=== PATIENT | female | born 1970 | race Caucasian/White ===

== ENCOUNTER 2023-06-03 21:53 | Outpatient (REF) | payer BC, SELFPAY | END 2023-06-03 21:54 | disposition home or self-care (01) | LOC: LAB 21:53 | PROVIDERS: PCP Family Medicine; Visit Provider Family Medicine | DX: N39.0 Urinary tract infection, site not specified (principal) | CPT/HCPCS: 87086 ==

== ENCOUNTER 2023-06-27 15:03 | Outpatient (OUT) | payer BC, SELFPAY ==
--- NOTE | 2023-06-27 15:12 | US_ITS ---
Patient: ROSLYN FLORES Exam Date: 06/27/2023 : 1970 Gender:F Ordering : DR Seymour Batres . Admission #: [id number] Family : Order #: [id number] CLICK HERE TO VIEW EXAM RADIOLOGY REPORT PROCEDURE: US BREAST BI LIMITED COMPARISON: US BREAST CARMEN LIMITED, 12/07/2022. INDICATIONS: Fibrocystic breast changes, bilateral N60.11, N60.12 TECHNIQUE: Breast ultrasound was performed, with evaluation focusing only on specific areas of concern. FINDINGS: DIAGNOSTIC CATEGORY 2--BENIGN FINDING: RIGHT BREAST: Oval hypoechoic 4 x 4 x 2 mm structure at the 5 o'clock position suspected to represent a lymph node. No appreciable change. LEFT BREAST: Rounded hypoechoic 4 x 4 x 3 mm structure at the 1 o'clock position; cyst versus lymph node suspected. No appreciable change compared to prior study. Annual screening is recommended. Patient states both lesions are palpable; if there is any increase in size ultrasound evaluation should be performed at that time. RECOMMENDATIONS: ROUTINE MAMMOGRAM AND CLINICAL EVALUATION IN 12 MONTHS. PLEASE NOTE: A NORMAL ULTRASOUND EXAMINATION DOES NOT EXCLUDE THE POSSIBILITY OF BREAST CANCER. A CLINICALLY SUSPICIOUS PALPABLE LUMP SHOULD BE BIOPSIED. Dictated by: Eduardo Trevino M.D. on 06/27/2023 at 15:28 Approved by: Eduardo Trevino M.D. on 06/27/2023 at 15:35
== END 2023-06-27 15:04 | disposition home or self-care (01) ==
PROVIDERS: PCP Family Medicine; Visit Provider Family Medicine
DX: N60.11 Diffuse cystic mastopathy of right breast (principal); N60.12 Diffuse cystic mastopathy of left breast
CPT/HCPCS: 76642

== ENCOUNTER 2023-08-07 12:14 | Outpatient (OUT) | payer BC, SELFPAY ==
[2023-08-07 12:34] LABS: Basophils Percent Auto 0.8 % (0.2-2.0); Eosinophils Percent Auto 0.6 % (0.9-7.0); Hematocrit 43.9 % (36.0-48.0); Hemoglobin 14.2 g/dL (12.0-16.0); Lymphocytes Absolute Auto 1.9 10^3/uL (1.2-3.8); Lymphocytes Percent Auto 37.4 % (20.5-60.0); Mean Corpuscular HGB Conc 32.3 g/dL (29.9-35.2); Mean Corpuscular Hemoglobin 29.1 pg (26.7-34.0); Mean Platelet Volume 9.6 fL (9.5-13.5); Monocytes Absolute Auto 0.4 10^3/uL (0.3-0.8); Monocytes Percent Auto 7.3 % (1.7-12.0); Neutrophils Absolute Auto 2.8 10^3/uL (1.4-6.5); Neutrophils Percent Auto 53.9 % (43.0-75.0); Platelet Count 232 10^3/uL (150-450); Red Blood Count 4.88 10^6/uL (4.20-5.40); Red Cell Distribution Width 12.9 % (11.0-15.0); White Blood Count 5.2 10^3/uL (4.0-11.0)
[2023-08-07 12:36] LABS: Bilirubin Urine NEGATIVE (NEGATIVE); Blood Urine NEGATIVE (NEGATIVE); Clarity Urine CLEAR (CLEAR); Color Urine YELLOW (YELLOW); Glucose Urine UA NEGATIVE (NEGATIVE); Ketones Urine NEGATIVE (NEGATIVE); Leukocyte Esterase Urine NEGATIVE (NEGATIVE); Nitrite Urine NEGATIVE (NEGATIVE); Protein Urine NEGATIVE (NEG/TRACE); Urobilinogen Urine 0.2 EU/dL (0.2-1.0)
[2023-08-07 12:43] LABS: Amorphous Sediment Urine MODERATE; Bacteria Urine SMALL #/HPF (NONE SEEN); Cast Seen? SEEN #/LPF (NONE SEEN); Crystals Seen? Seen #/HPF (None Seen); Hyaline Casts Urine RARE
[2023-08-07 12:44] LABS: Squamous Epithelial Cell Urine MODERATE #/LPF (NONE/RARE)
[2023-08-07 12:45] LABS: Calcium Oxalate Crystals Urine FEW; Mucus Urine NONE SEEN (NONE SEEN); Urine Culture Indicated NO
[2023-08-07 12:53] LABS: Alanine Aminotransferase 16 U/L (14-59); Albumin Globulin Ratio 1.1; Albumin Level 3.5 g/dL (3.4-5.0); Alkaline Phosphatase 65 U/L (46-116); Anion Gap 11.5; Aspartate Amino Transferase 13 U/L (15-37); Bilirubin Direct 0.1 mg/dL (0.0-0.2); Bilirubin Total 0.2 mg/dL (0.2-1.0); Calcium 8.4 mg/dL (8.5-10.1); Carbon Dioxide 26.9 mmol/L (21.0-32.0); Chloride 106 mmol/L (98-107); Estimated GFR (African America >60 (>=60); Estimated GFR (Non-African Ame 58 (>=60); Globulin 3.2 g/dL; Glucose 91 mg/dL (74-106); Magnesium 1.9 mg/dL (1.8-2.4); Potassium 3.4 mmol/L (3.5-5.1); Sodium 141 mmol/L (136-145); Total Protein 6.7 g/dL (6.4-8.2)
== END 2023-08-07 12:15 | disposition home or self-care (01) ==
LOC: LAB 12:14
PROVIDERS: PCP Family Medicine; Visit Provider Family Medicine
DX: N39.0 Urinary tract infection, site not specified (principal); Z79.899 Other long term (current) drug therapy
CPT/HCPCS: 36415; 80048; 80076; 81001; 83735; 85025; 87086

== ENCOUNTER 2023-09-09 16:11 | Outpatient (OUT) | payer OTHER, SELFPAY | END 2023-09-09 16:12 | disposition home or self-care (01) | LOC: CARD 16:11 | PROVIDERS: PCP Family Medicine; Visit Provider Family Medicine | DX: Z53.9 Procedure and treatment not carried out, unspecified reason (principal) ==

== ENCOUNTER 2023-09-12 15:59 | Outpatient (OUT) | payer BC, SELFPAY ==
--- NOTE | 2023-09-12 16:14 | CA_ITS ---
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: : 1970 Requested By: JOHN RIVAS Order Number: [id number] Reading MD: SHAN CHINCHILLA Interpretive Statements Predominant rhythm is sinus with average rate of 84 bpm Tachycardia - max rate of 159 bpm (associated w/ PSVT) - 7 episodes of PSVT w/ longest duration of 13 beats - longest episode of 2h 46min 7sec with rates between 113-128 bpm Bradycardia - min rate of 49 bpm - longest episode of 7sec with rates between 49-50 bpm Ventricular ectopy - 8 PVC Patient triggered events: none Impression Predominant rhythm is sinus with average rate of 84 bpm Fastest rate of 159 bpm and slowest rate of 49bpm 8 PVC No atrial fib No blocks or pauses Electronically Signed On 10-06-2023 20:25:02 EST by SHAN CHINCHILLA
== END 2023-09-12 16:00 | disposition home or self-care (01) ==
PROVIDERS: PCP Family Medicine; Visit Provider Family Medicine
DX: R00.2 Palpitations (principal)
CPT/HCPCS: 93246

== ENCOUNTER 2024-01-18 10:06 | Outpatient (OUT) | payer BC, SELFPAY ==
--- NOTE | 2024-01-18 | XR_ITS ---
The [address] [address] Patient Name: ROSLYN FLORES MRN: [id number] date: 1970 Sex: F Assigned Patient Location: LAB Current Patient Location: LAB Accession/Order Number: [id number] Exam Date: 01/18/2024 10:30 Report Date: 01/20/2024 07:06 At the request of: JOHN RIVAS Procedure: XR knee LT 2V PROCEDURE: XR tibia fibula LT 2V, XR knee LT 2V COMPARISON: None. HISTORY: PAIN FINDINGS: BONES:No acute fracture or dislocation. Moderate enthesopathic spurring of the calcaneus at the Achilles insertion. SOFT TISSUES:Negative. No visible soft tissue swelling. EFFUSION:None visible. OTHER: Negative. XR/XR knee LT 2V IMPRESSION: No acute abnormality of the knee or lower leg Electronically authenticated by: ZACK ADAMES Date: 01/20/2024 07:06
--- NOTE | 2024-01-18 | XR_ITS ---
The [place] [id number] Patient Name: ROSLYN FLORES MRN: [id number] date: 1970 Sex: F Assigned Patient Location: LAB Current Patient Location: LAB Accession/Order Number: [id number] Exam Date: 01/18/2024 10:30 Report Date: 01/20/2024 07:35 At the request of: JOHN RIVAS Procedure: XR lumbar spine 2-3V EXAMINATION: XR lumbar spine 2-3V HISTORY: PAIN COMPARISON: No relevant comparison available. FINDINGS: BONES: Moderate rotatory levocurvature of the thoracolumbar spine centered at L3. Mild degenerative spondylosis and facet osteoarthropathy. DISC SPACES: Normal. No significant disc height narrowing, subluxation, or endplate abnormality. PARASPINOUS: Negative. No paraspinous abnormality is seen. OTHER: Negative. XR/XR lumbar spine 2-3V IMPRESSION: Degenerative changes with rotatory levocurvature Electronically authenticated by: ZACK ADAMES Date: 01/20/2024 07:35
--- NOTE | 2024-01-18 | XR_ITS ---
The [address] [address] Patient Name: ROSLYN FLORES MRN: [id number] date: 1970 Sex: F Assigned Patient Location: LAB Current Patient Location: Accession/Order Number: [id number] Exam Date: 01/18/2024 10:30 Report Date: 01/20/2024 07:03 At the request of: JOHN RIVAS Procedure: XR hip CARMEN EXAMINATION: XR hip CARMEN HISTORY: PAIN COMPARISON: No relevant comparison available. FINDINGS: RIGHT FINDINGS: BONES: No acute fracture or dislocation. Corticated bone fragments identified along the acetabulum likely representing remote injury. SOFT TISSUES: Negative. No visible soft tissue swelling. OTHER: Pelvic calcifications, vascular phleboliths are favored LEFT FINDINGS: BONES: Normal. No significant arthropathy or acute abnormality. SOFT TISSUES: Negative. No visible soft tissue swelling. OTHER: Negative. XR/XR hip CARMEN IMPRESSION: RIGHT CONCLUSION: No acute abnormality LEFT CONCLUSION: No acute abnormality Electronically authenticated by: ZACK ADAMES Date: 01/20/2024 07:03
--- NOTE | 2024-01-18 | XR_ITS ---
[address] [address] Patient Name: ROSLYN FLORES MRN: [id number] date: 1970 Sex: F Assigned Patient Location: LAB Current Patient Location: LAB Accession/Order Number: [id number] Exam Date: 01/18/2024 10:30 Report Date: 01/20/2024 07:06 At the request of: JOHN RIVAS Procedure: XR tibia fibula LT 2V PROCEDURE: XR tibia fibula LT 2V, XR knee LT 2V COMPARISON: None. HISTORY: PAIN FINDINGS: BONES:No acute fracture or dislocation. Moderate enthesopathic spurring of the calcaneus at the Achilles insertion. SOFT TISSUES:Negative. No visible soft tissue swelling. EFFUSION:None visible. OTHER: Negative. XR/XR tibia fibula LT 2V IMPRESSION: No acute abnormality of the knee or lower leg Electronically authenticated by: ZACK ADAMES Date: 01/20/2024 07:06
--- OUTSIDE RECORDS SUMMARY | 2024-01-18 10:11 | XMS_ITS | CCD ---
Author Name Unknown Address [address] [facility] [address] [place] [address] Organization [facility] Care Team Providers Care Exhibitor Sales Name Role Phone LLAMAS, SIM P Unavailable Unavailable NILL, MEDINA R Unavailable Unavailable LLAMAS, SIM P Unavailable Unavailable NILL, MEDINA R Unavailable Unavailable Nill, Medina R Unavailable Unavailable Nill, Medina R Unavailable Unavailable Nill, Medina R Unavailable Unavailable NADERER, [phone] UNKNOWN Unavailable Unavailable Alejandra Higgins Unavailable EVELYN, DR JOHN French Primary Care Unavailable FAWWAD, H Attending Unavailable FAWWAD, SHAIKH Lis Admitting Unavailable FAWWAD, SHAIKH Lis Consulting Unavailable KARASIK, DR GUADALUPE Admitting Unavailable KARASIK, DR GUADALUPE Consulting Unavailable KARASIK, DR GUADALUPE Attending Unavailable NADERER, DR JOHN French Primary Care Unavailable ZIEBER, DR EDUARDO Decker Consulting Unavailable KARASIK, DR GUADALUPE Admitting Unavailable KARASIK, DR GUADALUPE Consulting Unavailable KARASIK, DR GUADALUPE Attending Unavailable NADERER, DR JOHN French Primary Care Unavailable NADERER, DR JOHN French Primary Care Unavailable NADERER, DR JOHN French Consulting Unavailable NADERER, DR JOHN French Attending Unavailable NADERER, DR JOHN French Admitting Unavailable NADERER, DR JOHN French Primary Care Unavailable ZIEBMARILYN, DR EDUARDO Decker Consulting Unavailable NADERER, DR JOHN French Attending Unavailable NADERER, DR JOHN French Admitting Unavailable NADERER, DR JOHN French Consulting Unavailable NADEREJeronimo, JOHN Attending Unavailable Allergies Allergy Classification Reported Allergen(s) Allergy Type Date of Onset Reaction(s) Facility (3 sources) ampicillin; Translations: [AMPICILLIN] Drug Allergy 0 anaphylaxis [facility] Repository (1 source) Penicillins; Translations: [PENICILLINS] Propensity to adverse reactions to drug (disorder) 5 AOF [facility] Repository (1 source) Amoxicillin Drug Allergy anaphylaxis [employer] Other Medications Current Medications Medication Drug Class(es) Dates Sig (Normalized) Sig (Original) Acetaminophen (1 source) Tylenol Active diphenhydrAMINE (1 source) Histamine-1 Receptor Antagonist Benadryl Active Estrogens, Conjugated (SNF) (1 source) Estrogen Premarin Active hydroCHLOROthiazide (1 source) Thiazide Diuretic hydroCHLOROthi azide Active methylPREDNISolone 4 mg oral tablet (2 sources) Corticosteroid Start: 10-26-20 21 methylPREDNISolone 4 MG as directed Orally Once a day for 6 days Apr, Active montelukast (1 source) Leukotriene Receptor Antagonist Singulair Active silver sulfADIAZINE 10 mg/ml topical cream (1 source) Sulfonamide Antibacterial Start: 04-22-20 Silvadene 1 % 1 application to affected area Externally Twice daily Apr, Active tiZANidine (1 source) Central alpha-2 Adrenergic Agonist Zanaflex Active topiramate (1 source) Topamax Active Completed/Discontinued Medications Medication Drug Class(es) Dates Sig (Normalized) Sig (Original) dexamethasone 1 mg/ml / tobramycin 3 mg/ml ophthalmic suspension (1 source) Aminoglycoside Antibacterial, Corticosteroid Start: 03-04-2022 take 1 drop(s) into the eye(s) three times daily Tobramycin-Dexam ethasone 0.3-0.1 % 1 drop into affected eye Ophthalmic Three times a day for 5 days March, Not-Taking SUMAtriptan (1 source) Serotonin-1b and Serotonin-1d Receptor Agonist Imitrex Not-Taking Tobramycin-Dexametha sone (1 source) Tobramycin-Dexam ethasone Not-Taking Problems Active Problems Problem Classification Problem Date Documented Date Episodic/Chronic Immunizations and screening for infectious disease (3 sources) Encounter for screening for human papillomavirus (HPV); Translations: [Encounter for screening for other viral diseases] Onset: 05-01-2022 Episodic Lymphadenitis (4 sources) Localized enlarged lymph nodes; Translations: [LOCALIZED ENLARGED LYMPH NODES] Onset: 09-12-2022 Episodic Nonmalignant breast conditions (5 sources) Unspecified lump in unspecified breast; Translations: [Unspecified lump in left breast, subareolar] Onset: 12-07-2022 Episodic Osteoporosis (1 source) Age-related osteoporosis without current pathological fracture; Translations: [AGE-REL OSTEOPOR W/O CURR PATH FX] Onset: 12-09-2022 Chronic Other screening for suspected conditions (not mental disorders or infectious disease) (5 sources) Encounter for screening for malignant neoplasm of cervix; Translations: [Encounter for screening for diabetes mellitus] Onset: 05-01-2022 Episodic Residual codes; unclassified (1 source) Asymptomatic menopausal state; Translations: [ASYMPTOMATIC MENOPAUSAL STATE] Onset: 12-09-2022 Episodic Residual codes; unclassified (1 source) Family history of malignant neoplasm of breast; Translations: [FAMILY HX MALIG NEOPLASM OF BREAST] Onset: 12-09-2022 Episodic Viral infection (4 sources) Viral infection, unspecified; Translations: [VIRAL INFECTION UNSPECIFIED] Onset: 09-17-2022 Episodic Past or Other Problems Problem Classification Problem Date Documented Da te Episodic/Chronic Allergic reactions (1 source) Irritant contact dermatitis, unspecified cause Onset: 04-22-2022 Resolved: 04-22-2022 Episodic Other nutritional; endocrine; and metabolic disorders (4 sources) Abnormal weight loss; Translations: [ABNORMAL WEIGHT LOSS] Onset: 04-26-2022 Episodic Results Test Name Value Interpretation Reference Range Facility [facility] MAMM DIAGNOSTIC 3D CARMEN CA Don 12-07-2022 MG MAMM DIAGNOSTIC 3D CARMEN CAD Patient: ROSLYN FLORES Exam Date: 12/07/2022 : 1970 Gender:F Ordering : DR COLLINS JARRETT . Admission #: [id number] Family : Order #: [id number] CLICK HERE TO VIEW EXAM RADIOLOGY REPORT PROCEDURE: MAMMOGRAM DIAGNOSTIC 3D BILATERAL CAD, 12/07/2022, 13:02 ULTRASOUND BREAST BILATERAL LIMITED, 12/07/2022, 13:51 COMPARISON: MG MAMM SCREEN CARMEN W CAD, 11/22/2020. INDICATIONS: Breast lump Calculator Name NCI Breast Cancer Risk Assessment Tool 5 Year Breast Cancer Risk 1.10% Lifetime Breast Cancer Risk 8.40% Personal Breast Cancer No Personal Ovarian Cancer No Treatments None Family Cancers Aunt-maternal with breast cancer at age 40; Cousin-maternal with breast cancer at age 33; Aunt-maternal with breast cancer at age 60. LOCATION: [facility] BREAST COMPOSITION: Extremely dense, which lowers the sensitivity of mammography. FINDINGS: DIAGNOSTIC CATEGORY 3--PROBABLY BENIGN FINDING. THE FOLLOWING FINDING(S) HAS A HIGH PROBABILITY OF A BENIGN ETIOLOGY: RIGHT BREAST: No significant suspicious mammographic finding. This exam includes additional mammographic views for implant evaluation and shows no visible implant abnormality. No significant change has occurred. Ultrasound evaluation demonstrates a 4 x 4 x 2 mm hypoechoic structure suspected represent a benign lymph node at the 5 o'clock position, 1.9 cm from the nipple, corresponding to patient's palpable lump. LEFT BREAST: No significant suspicious mammographic finding. This exam includes additional mammographic views for implant evaluation and shows no visible implant abnormality. No significant change has occurred. Ultrasound evaluation demonstrates a 4 x 3 x 3 mm hypoechoic structure at the 1 o'clock position 0.7 cm from the nipple, too small to clearly identify but suspected represent a lymph node. Given the very small size of the right and left breast lymph nodes/nodules, suspected benign etiology, and very little tissue between the skin and breast implants, follow-up ultrasound evaluation in 6 months is recommended to document stability. RECOMMENDATIONS: SHORT TERM FOLLOW-UP ULTRASOUND BILATERAL BREASTS IN 6 MONTHS. PLEASE NOTE: A NORMAL MAMMOGRAM DOES NOT EXCLUDE THE POSSIBILITY OF BREAST CANCER. A CLINICALLY SUSPICIOUS PALPABLE LUMP SHOULD BE BIOPSIED. Dictated by: Eduardo Trevino M.D. on 12/07/2022 at 14:30 Approved by: Eduardo Trevino M.D. on 12/07/2022 at 15:02 Normal [facility] US BREAST CARMEN LIMITEDon 02-0 US BREAST CARMEN LIMITED Patient: ROSLYN FLORES Exam Date: 12/07/2022 : 1970 Gender:F Ordering : DR COLLINS JARRETT . Admission #: [id number] Family : Order #: [id number] CLICK HERE TO VIEW EXAM RADIOLOGY REPORT PROCEDURE: MAMMOGRAM DIAGNOSTIC 3D BILATERAL CAD, 12/07/2022, 13:02 ULTRASOUND BREAST BILATERAL LIMITED, 12/07/2022, 13:51 COMPARISON: MG MAMM SCREEN CARMEN W CAD, 11/22/2020. INDICATIONS: Breast lump Calculator Name NCI Breast Cancer Risk Assessment Tool 5 Year Breast Cancer Risk 1.10% Lifetime Breast Cancer Risk 8.40% Personal Breast Cancer No Personal Ovarian Cancer No Treatments None Family Cancers Aunt-maternal with breast cancer at age 40; Cousin-maternal with breast cancer at age 33; Aunt-maternal with breast cancer at age 60. LOCATION: [facility] BREAST COMPOSITION: Extremely dense, which lowers the sensitivity of mammography. FINDINGS: DIAGNOSTIC CATEGORY 3--PROBABLY BENIGN FINDING. THE FOLLOWING FINDING(S) HAS A HIGH PROBABILITY OF A BENIGN ETIOLOGY: RIGHT BREAST: No significant suspicious mammographic finding. This exam includes additional mammographic views for implant evaluation and shows no visible implant abnormality. No significant change has occurred. Ultrasound evaluation demonstrates a 4 x 4 x 2 mm hypoechoic structure suspected represent a benign lymph node at the 5 o'clock position, 1.9 cm from the nipple, corresponding to patient's palpable lump. LEFT BREAST: No significant suspicious mammographic finding. This exam includes additional mammographic views for implant evaluation and shows no visible implant abnormality. No significant change has occurred. Ultrasound evaluation demonstrates a 4 x 3 x 3 mm hypoechoic structure at the 1 o'clock position 0.7 cm from the nipple, too small to clearly identify but suspected represent a lymph node. Given the very small size of the right and left breast lymph nodes/nodules, suspected benign etiology, and very little tissue between the skin and breast implants, follow-up ultrasound evaluation in 6 months is recommended to document stability. RECOMMENDATIONS: SHORT TERM FOLLOW-UP ULTRASOUND BILATERAL BREASTS IN 6 MONTHS. PLEASE NOTE: A NORMAL MAMMOGRAM DOES NOT EXCLUDE THE POSSIBILITY OF BREAST CANCER. A CLINICALLY SUSPICIOUS PALPABLE LUMP SHOULD BE BIOPSIED. Dictated by: Eduardo Trevino M.D. on 12/07/2022 at 14:30 Approved by: Eduardo Trevino M.D. on 12/07/2022 at 15:02 Normal [facility] XR DEXA BONE DENSITYon 12-07 XR DEXA BONE DENSITY EXAMINATION: XR DEXA BONE DENSITY, 12/07/2022 1:15 PM EST HISTORY: Menopause present COMPARISON: None. TECHNIQUE: Dual-energy X-ray absorptiometry (DEXA) bone density study performed for the axial skeleton. FINDINGS: SPINE ANALYSIS: Average bone mineral density is 1.078 g/cm2. T-score (standard deviation relative to young adult mean): -0.9 . -5.0% change since prior study. HIP ANALYSIS: Lowest bone mineral density is within the right femoral trochanter, 0.491 g/cm2. T-score (standard deviation relative to young adult mean): -3.1 . -1.8% change since prior study. IMPRESSION: World Jj Organization Classification: Osteoporosis - High Fracture Risk Electronically authenticated by: EDUARDO TREVINO Date: 2022-12-07 14:46 Normal [facility] PAP ACOG PANEL 2: 30 to 65on 11-28-2022 . . Normal [facility] Comment on above: Result Comment: Perf ormed at: WB Performed By: #### C BC #### [facility] [address] [address] [address] Henrietta Herr Age Gdln ACOG Testing 30-[address] [facility] Comment on above: Performed By: #### C BC #### [facility] [address] [address] [address] Henrietta Herr DIAGNOSIS: Comment Normal [facility] Comment on above: Result Comment: NEGA TIVE FOR INTRAEPITHELIAL LESION OR MALIGNANCY. Performed at: WB Performed By: #### C BC #### [facility] [address] [address] [address] Henrietta Herr HPV Aptima Negative Normal Negative [facility] Comment on above: Result Comment: This nucleic acid amplification test detects fourteen high-risk HPV types (16,18,31,33,35,39,45,51,52,56,58,59,66,68) without differentiation. Performed at: =G Performed By: #### C BC #### [facility] [address] [address] [address] Henrietta Herr HPV Genotype Reflex Comment [facility] Comment on above: Result Comment: Crit eria not met, HPV Genotype not performed. Performed at: WB Performed By: #### C BC #### [facility] [address] [address] [address] Henrietta Herr Methodology: Comment Normal [facility] Comment on above: Result Comment: This liquid based ThinPrep(R) pap test was screened with the use of an image guided system. Performed at: WB Performed By: #### C BC #### [facility] [address] [place] [address] Dr. Henrietta Herr Note: Comment Normal [facility] Comment on above: Result Comment: The Pap smear is a screening test designed to aid in the detection of premalignant and malignant conditions of the uterine cervix. It is not a diagnostic procedure and should not be used as the sole means of detecting cervical cancer. Both false-positive and false-negative reports do occur. . Performed at: WB Performed By: #### C BC #### [facility] [address] [place] [address] Dr. Henrietta Herr Performed by: Comment Normal [facility] Comment on above: Result Comment: Maria Elena Page, Plant Operator/Shift Supervisor (ASCP) Performed at: WB Performed By: #### C BC #### [facility] [address] [place] [address] Dr. Henrietta Herr Specimen adequacy: Comment Normal [facility] Comment on above: Result Comment: Sati sfactory for evaluation. No endocervical cells are present. This is consistent with a history of hysterectomy. Performed at: WB Performed By: #### C BC #### [facility] [address] [place] [address] Dr. Henrietta Hrer CBC AUTO DIFFon 09-17-2022 BASO # 0.0 103/ul Normal 0.0-0.1 [facility] Comment on above: Performed By: #### C BC #### [facility] [address] [place] [address] Dr. Henrietta Herr Basophils/100 WBC (Bld) 0.8 % Normal 0.2-2.0 [facility] Comment on above: Performed By: #### C BC #### [facility] [address] [place] [address] Dr. Henrietta Herr EO # 0.1 103/ul Normal 0.0-0.7 [facility] Comment on above: Performed By: #### C BC #### [facility] [address] [place] [address] Dr. Henrietta Herr Eosinophils/100 WBC (Bld) 1.2 % Normal 0.9-7.0 [facility] Comment on above: Performed By: #### C BC #### [facility] [address] [place] [address] Dr. Henrietta Herr Erythrocyte distribution width (RBC) [Ratio] 13.6 % Normal 11.0-15.0 [facility] Comment on above: Performed By: #### C BC #### [facility] [address] [place] [address] Dr. Henrietta Herr Hematocrit (Bld) [Volume fraction] 41.2 % Normal 36.0-48.0 [facility] Comment on above: Performed By: #### C BC #### [facility] [address] [place] [address] Dr. Henrietta Herr Hemoglobin (Bld) [Mass/Vol] 13.2 g/dL Normal 12.0-16.0 [facility] Comment on above: Performed By: #### C BC #### [facility] [address] [place] [address] Dr. Henrietta Herr IG # 0.01 10e3/ul Normal 0.00-0.03 [facility] Comment on above: Performed By: #### C BC #### [facility] [address] [place] [address] Dr. Henrietta Herr IG % 0.2 % Normal 0.0-0.5 [facility] Comment on above: Performed By: #### C BC #### [facility] [address] [place] [address] Dr. Henrietta Herr LYMPH # 1.8 103/ul Normal 1.2-3.8 [facility] Comment on above: Performed By: #### C BC #### [facility] [address] [place] [address] Dr. Henrietta Herr Lymphocytes/100 WBC (Bld) 36.9 % Normal 20.5-60.0 [facility] Comment on above: Performed By: #### C BC #### [facility] [address] [place] [address] Dr. Henrietta Herr MANUAL DIFF REQ NO Normal [facility] Comment on above: Performed By: #### C BC #### [facility] [address] [place] [address] Dr. Henrietta Herr MCH (RBC) [Entitic mass] 28.9 pg Normal 26.7-34.0 [facility] Comment on above: Performed By: #### C BC #### [facility] [address] [place] [address] Dr. Henrietta Herr MCHC (RBC) [Mass/Vol] 32.0 g/dL Normal 29.9-35.2 [facility] Comment on above: Performed By: #### C BC #### [facility] [address] [place] [address] Dr. Henrietta Herr MCV (RBC) [Entitic vol] 90.2 fL Normal 81.0-99.0 [facility] Comment on above: Performed By: #### C BC #### [facility] [address] [place] [address] Dr. Henrietta Herr MONO # 0.3 103/ul Normal 0.3-0.8 [facility] Comment on above: Performed By: #### C BC #### [facility] [address] [place] [address] Dr. Henrietta Herr Monocytes/100 WBC (Bld) 6.6 % Normal 1.7-12.0 [facility] Comment on above: Performed By: #### C BC #### [facility] [address] [place] [address] Dr. Henrietta Herr NEUT # 2.7 103/ul Normal 1.4-6.5 [facility] Comment on above: Performed By: #### C BC #### [facility] [address] [place] [address] Dr. Henrietta Herr Neutrophils/100 WBC (Bld) 54.3 % Normal 43.0-75.0 [facility] Comment on above: Performed By: #### C BC #### [facility] [address] [place] [address] Dr. Henrietta Herr Platelet mean volume (Bld) [Entitic vol] 10.4 fL Normal 9.5-13.5 [facility] Comment on above: Performed By: #### C BC #### [facility] [address] [address] [address] Henrietta Herr PLT 207 103/ul Normal 150-450 [facility] Comment on above: Performed By: #### C BC #### [facility] [address] [address] [address] Henrietta Herr RBC 4.57 106/ul Normal 4.20-5.40 [facility] Comment on above: Performed By: #### C BC #### [facility] [address] [place] [address] Dr. Henrietta Herr WBC 5.0 103/ul Normal 4.0-11.0 [facility] Comment on above: Performed By: #### C BC #### [facility] [address] [place] [address] Dr. Henrietta Herr MONOon 09-17-2022 Monocytes (Bld) [#/Vol] Negative Normal NEGATIVE [facility] Comment on above: Performed By: #### C BC #### [facility] [address] [place] [address] Dr. Henrietta Herr PROF CHEM 8 (BAS METB)on Anion gap [Moles/Vol] 9.5 mmol/L Normal [facility] Comment on above: Performed By: #### T SH, BMP #### [facility] [address] [place] [address] Dr. Henrietta Herr Calcium [Mass/Vol] 8.4 mg/dL Critically low 8.5-10.1 [facility] Comment on above: Performed By: #### T SH, BMP #### [facility] [address] [place] [address] Dr. Henrietta Herr Chloride [Moles/Vol] 109 mmol/L Critically high 98-107 [facility] Comment on above: Performed By: #### T SH, BMP #### [facility] [address] [place] [address] Dr. Henrietta Herr CO2 [Moles/Vol] 24.8 mmol/L Normal 21.0-32.0 [facility] Comment on above: Performed By: #### T SH, BMP #### [facility] [address] [address] [address] Henrietta Herr Creatinine [Mass/Vol] 0.95 mg/dL Normal 0.55-1.02 [facility] Comment on above: Performed By: #### T SH, BMP #### [facility] [address] [place] [address] Dr. Henrietta Herr EGFR-AF TRISTANIAN >60 Normal >=60 [facility] Comment on above: Performed By: #### T SH, BMP #### [facility] [address] [address] [address] Henrietta Herr EGFR-NON AF TRISTANIAN >60 Normal >=60 [facility] Comment on above: Performed By: #### T SH, BMP #### [facility] [address] [place] [address] Dr. Henrietta Herr Glucose [Mass/Vol] 113 mg/dL Critically high 74-106 [facility] Comment on above: Performed By: #### T SH, BMP #### [facility] [address] [place] [address] Dr. Henrietta Herr Potassium [Moles/Vol] 4.3 mmol/L Normal 3.5-5.1 [facility] Comment on above: Performed By: #### T SH, BMP #### [facility] [address] [place] [address] Dr. Henrietta Herr Sodium [Moles/Vol] 139 mmol/L Normal 136-145 [facility] Comment on above: Performed By: #### T SH, BMP #### [facility] [address] [place] [address] Dr. Henrietta Herr Urea nitrogen [Mass/Vol] 21.0 mg/dL Critically high 7.0-18.0 [facility] Comment on above: Performed By: #### T SH, BMP #### [facility] [address] [place] [address] Dr. Henrietta Herr Urea nitrogen/Creatinin e [Mass ratio] 22.1 mg/mg Normal [facility] Comment on above: Performed By: #### T SH, BMP #### [facility] [address] [address] [address] Henrietta Herr TSHon 09-17-2022 TSH 1.038 uIU/mL Normal 0.358-3.740 [facility] Comment on above: Performed By: #### T SH, BMP #### [facility] [address] [address] [address] Henrietta Herr US ST HEAD_NECKon 09-13-[address] HEAD_NECK EXAM: US ST HEAD_NEC K HISTORY: Localized enlarged lymph nodes ; previously palpable left neck lump COMPARISON: None. TECHNIQUE: Percutaneous ultrasound evaluation of left neck. FINDINGS: 13 x 5 x 4 mm hypoechoic mass within anterior left neck corresponding to patient's palpable lump, most consistent with a lymph node. IMPRESSION: 1. Small benign-appearing lymph node appears to correspond to patient's previously palpable lump. No additional follow-up recommended at this time. Electronically authenticated by: EDUARDO TREVINO Date: 2022-09-13 09:15 Normal [facility] HEPATITIS C ANTIBODYon 04-27 Hep C Virus Ab 0.1 s/co ratio Normal 0.0-0.9 [facility] Comment on above: Result Comment: Nega tive: < 0.8 Indeterminate: 0.8 - 0.9 Positive: > 0.9 . HCV antibody alone does not differentiate between previous resolved infection and active infection. The CDC and current clinical guidelines recommend that a positive HCV antibody result be followed up with an HCV RNA test to support the diagnosis of acute HCV infection. [facility] offers Hepatitis C Virus (HCV) RNA, Diagnosis, ANDREA (181272) and Hepatitis C Virus (HCV) Antibody with reflex to Quantitative Real-time PCR (042912). Performed By: #### H CV #### [facility] [address] [address] [address] Henrietta Herr HIV 1 AND 2 WITH REFLEXon HIV Screen 4th Generation wRfx Non-Reactive Normal Non Reactive [facility] Comment on above: Result Comment: HIV Negative HIV-1/HIV-2 antibodies and HIV-1 p24 antigen were NOT detected. There is no laboratory evidence of HIV infection. Performed By: #### H IV12 #### [facility] [address] [place] [address] Dr. Henrietta Herr GLYCOHEMOGLOBIN A1Con 2021 ADA RECOMMENDATION SEE BELOW Normal [facility] Comment on above: Result Comment: ADA RECOMMENDED LIMIT 4.0 - 6.0 ADA THERAPEUTIC TARGET < 7.0 ACTION SUGGESTED > 7.0 Performed By: #### C BC #### [facility] [address] [place] [address] Dr. Henrietta Herr Glucose [Mass/Vol] 114 mg/dL Normal [facility] Comment on above: Performed By: #### C BC #### [facility] [address] [place] [address] Dr. Henrietta Herr HbA1c (Bld) [Mass fraction] 5.6 % Normal 4.5-6.2 [facility] Comment on above: Performed By: #### C BC #### [facility] [address] [place] [address] Dr. Henrietta Herr TSHon 04-26-2022 TSH 0.549 uIU/mL Normal 0.358-3.740 [facility] Comment on above: Performed By: #### T SH #### [facility] [address] [place] [address] Dr. Henrietta Herr XR forearm LT 2V*on 06-14-20 21 XR forearm LT 2V* [facility] [address] XRay Report Signed Patient: Roslyn Flores MR#: [id number] : 1970 Acct:[id number] Age/Sex: 51 / F ADM Date: 06/13/21 [facility]: [facility] Room: Type: [facility] Attending Dr: Melo Hernandez NP-C Ordering Provider: Melo WAHLP-C Date of Service: 06/13/21 XR/XR forearm LT 2V*: M79.602 Copies to: Melo Hernandez SKIDDER RUNNER-C LEFT FOREARM - 2 views CLINICAL HISTORY: Vacuum fell onto patient's left forearm today. Patient complaining of pain. COMPARISON: None AP and lateral views of the left forearm were obtained. There is no evidence of fracture, dislocation or bony destruction. There are no focal soft tissue abnormalities. XR/XR forearm LT 2V* IMPRESSION: NO ACUTE BONY INJURY. Impression dictated by: May Pineda M.D.06/14/2021 7:46 AM Dictation Location: [place] [address] Transcribed By: SALINA 06/14/21745 Dictated By: May Pineda MD 06/14/21 0745 Signed By: 06/14/2146 [facility] CNOVSPon 08-05-2017 CNOVSP Visit (SP) Office ([facility]) -ROSLYN FLORES ([id number]) 1970 FDate Time Provider Fmgpfhndvr75/2/17 9:00 AM SIM LLAMAS HEMACL During your visit today, we recorded the following information about you: Pulse Respiration Blood pressure Weight 83/minute 18/minute 116/62 49.7 kg Height 1.575 mReferring Provider: MEDINA CAREY [[id number]]Allergies As of Date: 08/05/2017 Noted Allergy ReactionAMPICILLIN 04/28/2010 7 - SwellingPENICILLINS 08/16/2015 10 - AnaphylaxisDate Reviewed: 08/05/2017Reviewed by: Rita Llanes - Fully AssessedReason for Visit: Mammogram Abnormality [4162] Cmt: follow upPrimary Visit Diagnosis:Abnormal mammogram [R92.8]Prescriptions as of 08/05/2017 Sig: MELOXICAM 7.5 MG TABLET Take 7.5 mg by mouth once segun* GABAPENTIN 300 MG CAPSULE MONTELUKAST 10 MG TABLET OXYCODONE 10 MG TABLET TIZANIDINE 4 MG TABLET HYDROCHLOROTHIAZIDE 25 MG TAB* Take 25 mg by mouth once lizbeth* SUMATRIPTAN 100 MG TABLET Take 100 mg by mouth as neede* ESTRADIOL 2 MG TABLET Take 2 mg by mouth once daily. TOPIRAMATE 100 MG TABLET Take one(1) tablet four (4) t* ULTRAM 50 MG TABLET Take one (1) or two(2) tablet*Medication notes this encounter MELOXICAM 7.5 MG TABLET >> February Llanes 08/05/2017 9:02 AM >> LLANESFebruaryAug 05, 2017 9:02 AM Received from: External Pharmacy Received Sig: TAKE 1 TABLET BY MOUTH EVERYDAY PHENAZOPYRIDINE 200 MG TABLET >> February Llanes 08/05/2017 9:02 AM >> JOSEFebruaryAug 05, 2017 9:02 AM Received from: External Pharmacy SULFAMETHOXAZOLE 800 MG-TRIMETHOPRIM 160 MG TABLET >> February Llanes 08/05/2017 9:02 AM >> JOSEFebruaryAug 05, 2017 9:02 AM Received from: External Pharmacy Received Sig: TAKE 1 TABLET BY MOUTH TWICEDAILY FOR 5 DAYSProblem List As Of Date 08/05/2017 Noted Resolved Abnormal bleeding time [R79.1] INVALID FOR*Encounter Status:Closed by SIM LLAMAS MD on 08/06/[address] [facility] CNOVSPon 07-16-2017 OVS Visit (SP) Office ([facility]) -ROSLYN FLORES ([id number]) 1970 [facility] Time Provider Department07/16/17 2:45 PM SIM LLAMAS During your visit today, we recorded the following information about you: Temperature Pulse Respiration Blood pressure 98.5 degrees 79/minute 16/minute 117/74 Weight Height 50 kg 1.575 Padmini Llamas MD 07/16/2017 3:41 PM SignedCHIEF COMPLAINT: Abnormal mammogramHISTORY OF PRESENT ILLNESS: Roslyn Flores is a 47 year old female who isreferred by Dr. Carey after recently having an abnormal screening mammogram.Patient has also completed an MRI of her breasts, this has not yet been read.Other symptoms include galactorrhea. Previously check prolactin levels havebeen normal. She does have occasional headaches. She denies any changes onself breast examination or palpable nodules in her breasts. She has a historyof breast augmentation. She also has a history of endometriosis leaving toTAH/BSO in the past. She is on estrogen replacement therapy. She has ahistory of osteoporosis.PAST MEDICAL HISTORYDiagnosis Date- Abnormal mammogram- Bronchitis- Fibromyalgia- Hypertension- Myalgia- Osteoporosis- PneumoniaPAST SURGICAL HISTORYProcedure Laterality Date- CHOLECYSTECTOMY HX- REMOVAL OF OVARY(S) bi lateral- S PACK SURGERY ACL M- S SLING BLADDERReview of Social History includes:Social History Marital status: Spouse name: Years of education: Number of children:Social History Main Topics Smoking status: Never Smoker Smokeless status: Never Used Alcohol use: No Drug use: NoNo family history on file.Current Outpatient Prescriptions:gabapentin (NEURONTIN) 300 mg capsulemontelukast (SINGULAIR) 10 mg tablettiZANidine (ZANAFLEX) 4 mg tablethydrochlorothiazide (HYDRODIURIL, ESIDRIX) 25 mg tablet Take 25 mg by mouthonce daily.SUMAtriptan (IMITREX) 100 mg tablet Take 100 mg by mouth as needed.topiramate (TOPAMAX) 100 mg ORAL tablet Take one(1) tablet four (4) timesdaily.tramadol hcl(ULTRAM 50 MG TAB) Take one (1) or two(2) tablets every six(6)hours as needed for pain.oxyCODONE IR (ROXICODONE) 10 mg tabestradiol (ESTRACE) 2 mg tablet Take 2 mg by mouth once daily.No current facility-administered medications for this visit.REVIEW OF SYSTEMS:Constitutional: No fever, night sweats or unwanted weight loss.Head and neck: No neck stiffness or goiter.Respiratory: No cough or hemoptysis.Cardiovascular: No chest pain or palpitations.GI: No nausea, vomiting, diarrhea or GI bleed.Skin: No rash or lesions.Neurologic: No focal weakness or sensory changes.Psychiatric: Normal affect.Endocrinology: No diabetes or thyroid disease.Hematopoietic: No easy bruising or enlarged lymphadenopathy.: No frequency or dysuria.Breast: Galactorrhea as notedPHYSICAL EXAMINATION:BP 117/74 Pulse 79 Temp 36.9 ?C (98.5 ?F) (Oral) Resp 16 Ht 157.5 cm(5' 2ANDquot;) Wt 50 kg (110 lb 3.2 oz) BMI 20.16 kg/r7Atknrev appearance: well appearing, alert, in no acute distress, well-hydrated,well nourishedSkin: skin color, texture, turgor normal, no suspicious rashes or lesionsHead: normalEyes: Anicteric sclera. Pupils are equally round and reactive to light.Extraocular movements are intact.Oropharynx: negativeNeck: Supple, no adenopathy; thyroid symmetric, normal sizeLymph Nodes: No Submandibular, cervical, supraclavicular, axillarylymphadenopathy presentBack: no tenderness to palpationLungs: clear to auscultation, no wheezing or rhonchiHeart: Negative. RRR without murmur, gallop, or rubs. No ectopy.Abdomen: Normal abdominal exam, Abdomen soft, non-tender. Bowel sounds normal.No masses, organomegalyExtremities: Extremities normal. No deformities, edema, or skin discoloration.Good capillary refill.Musculoskeletal: No joint swelling, deformity, or tenderness.Peripheral pulses: NormalNeuro: Gait normal.Breast: Deferred by the patient noticed this is recently been done by Dr. Dumontaging: See EMRASSESSMENT/PLAN: Roslyn Flores is a 47 year old female with abnormal rightmammogram. Still awaiting results from MRI which was ordered by .Referral was made and given young age and family history of breast cancer.Reviewed with the patient will genetic testing in management of breast cancerin patient's with high risk of mutation. Patient does have family membersincluding a first degree cousin who was diagnosed in her 30s with breastcancer. Apparently this cousin has had genetic testing in [place] and wasreported to have findings that would put her at high risk for future breastmalignancy per patient report. The specifics of this test were not clear andwere unknown to the patient.Plan:1. Abnormal mammogram:?Await results of MRI?Given family history would prefer to medical genetics2. Galactorrhea:?Has had testing in the past?The repeat prolactin level and TSH?May pursue further testing based on results her symptomsAlfred Eliezer Cooper Provider: MEDINA CAREY [[id number]]Allergies As of Date: 07/16/2017 Noted Allergy ReactionAMPICILLIN 04/28/2010 7 - SwellingPENICILLINS 08/16/2015 10 - AnaphylaxisDate Reviewed: 07/16/2017Reviewed by: Heather Toney - Fully AssessedReason for Visit: Consult [173] Cmt: Dr. angelo for abnormal mammogramPrimary Visit Diagnosis:Abnormal mammogram [R92.8] Other Visit Diagnoses:Nipple discharge in female [N64.52] Family history of breast cancer [Z80.3]Order(s):PROLACTIN BLD [SQPROL] Order #: [id number] FUTURE TSH BLD [SQTSH] Order #: [id number] FUTURE CONSULT TO MEDICAL GENETICS [19991108] Order #: [id number]: 1Follow-up and Disposition History RecordedPrescriptions as of 07/16/2017 Sig: GABAPENTIN 300 MG CAPSULE MONTELUKAST 10 MG TABLET TIZANIDINE 4 MG TABLET HYDROCHLOROTHIAZIDE 25 MG TAB* Take 25 mg by mouth once lizbeth* SUMATRIPTAN 100 MG TABLET Take 100 mg by mouth as neede* TOPIRAMATE 100 MG TABLET Take one(1) tablet four (4) t* ULTRAM 50 MG TABLET Take one (1) or two(2) tablet* OXYCODONE 10 MG TABLET ESTRADIOL 2 MG TABLET Take 2 mg by mouth once daily.Problem List As Of Date 07/16/2017 Noted Resolved Abnormal bleeding time [R79.1] INVALID FOR*Encounter Status:Closed by SIM LLAMAS MD on 07/16/17 Normal [facility] MRI Breast w/o and/or w/ Con trast Bilateralon 07-16-2017 MRI Breast w/o and/or w/ Contrast Bilateral Exam Date/Time:07/12/2017 15:18 EDTReason for Exam:ABNORMAL BREAST IMAGING, ABNORMAL MAMM RIGHT, FAMILY HX BREAST CA, HX BREAST AUGMENTATIONReportIMPRESSION: BI-RADS CATEGORY 2: BENIGN.CLINICAL HISTORY: abnormal breast imaging, abnormal mamm right, family hx breast ca,hx breast augmentation. COMPARISON: Mammogram and right breast ultrasound exam on 06/11/2017.COMMENT: Unenhanced and intravenous contrast enhanced images were obtained.There are bilateral saline breast implants, that are unremarkable, without evidenceof collapse. There is a heterogeneous amount of fibroglandular tissue in each breast.There is a moderate level of background parenchymal enhancement within each breast.There are few small bilateral cysts. No mass lesion nor suspicious contrast-enhancinglesion is identified in either breast. No axillary lymphadenopathy nor chest walllesion is evident. FINAL REPORT Dictated: 07/16/2017 3:55 pm Serafin Meadows M.D. Signed (Electronic Signature): 07/16/2017 3:55 pm Signed by: Serafin Meadows M.D. Transcribed by: FENG Technologist: AFTechnical CommentsMultiHanceContrast amount in ml's: 10 Normal [facility] PROGRESSon 07-16-2017 PROGRESS HNO ID: [id number] thor: Sim Vangice: (none)Author Type: PhysicianType: Progress NotesFiled: 07/16/2017 3:41 PMNote Text:CHIEF COMPLAINT: Abnormal mammogramHISTORY OF PRESENT ILLNESS: Roslyn Flores is a 47 year old femalewho is referred by Dr. Carey after recently having an abnormal screeningmammogram. Patient has also completed an MRI of her breasts, this has notyet been read. Other symptoms include galactorrhea. Previously checkprolactin levels have been normal. She does have occasional headaches.She denies any changes on self breast examination or palpable nodules inher breasts. She has a history of breast augmentation. She also has ahistory of endometriosis leaving to PAMELA/BSO in the past. She is onestrogen replacement therapy. She has a history of osteoporosis.PAST MEDICAL HISTORYDiagnosis Date- Abnormal mammogram- Bronchitis- Fibromyalgia- Hypertension- Myalgia- Osteoporosis- PneumoniaPAST SURGICAL HISTORYProcedure Laterality Date- CHOLECYSTECTOMY HX- REMOVAL OF OVARY(S) bi lateral- S PACK SURGERY ACL M- S SLING BLADDERReview of Social History includes:Social History Marital status: Spouse name: Years of education: Number of children:Social History Main Topics Smoking status: Never Smoker Smokeless status: Never Used Alcohol use: No Drug use: NoNo family history on file.Current Outpatient Prescriptions:gabapentin (NEURONTIN) 300 mg capsulemontelukast (SINGULAIR) 10 mg tablettiZANidine (ZANAFLEX) 4 mg tablethydrochlorothiazide (HYDRODIURIL, ESIDRIX) 25 mg tablet Take 25 mg bymouth once daily.SUMAtriptan (IMITREX) 100 mg tablet Take 100 mg by mouth as needed.topiramate (TOPAMAX) 100 mg ORAL tablet Take one(1) tablet four (4) timesdaily.tramadol hcl(ULTRAM 50 MG TAB) Take one (1) or two(2) tablets everysix(6) hours as needed for pain.oxyCODONE IR (ROXICODONE) 10 mg tabestradiol (ESTRACE) 2 mg tablet Take 2 mg by mouth once daily.No current facility-administered medications for this visit.REVIEW OF SYSTEMS:Constitutional: No fever, night sweats or unwanted weight loss.Head and neck: No neck stiffness or goiter.Respiratory: No cough or hemoptysis.Cardiovascular: No chest pain or palpitations.GI: No nausea, vomiting, diarrhea or GI bleed.Skin: No rash or lesions.Neurologic: No focal weakness or sensory changes.Psychiatric: Normal affect.Endocrinology: No diabetes or thyroid disease.Hematopoietic: No easy bruising or enlarged lymphadenopathy.: No frequency or dysuria.Breast: Galactorrhea as notedPHYSICAL EXAMINATION:BP 117/74 Pulse 79 Temp 36.9 ?C (98.5 ?F) (Oral) Resp 16 Ht 157.5cm (5' 2 ) Wt 50 kg (110 lb 3.2 oz) BMI 20.16 kg/q4Bhutrxo appearance: well appearing, alert, in no acute distress,well-hydrated, well nourishedSkin: skin color, texture, turgor normal, no suspicious rashes or lesionsHead: normalEyes: Anicteric sclera. Pupils are equally round and reactive to light.Extraocular movements are intact.Oropharynx: negativeNeck: Supple, no adenopathy; thyroid symmetric, normal sizeLymph Nodes: No Submandibular, cervical, supraclavicular, axillarylymphadenopathy presentBack: no tenderness to palpationLungs: clear to auscultation, no wheezing or rhonchiHeart: Negative. RRR without murmur, gallop, or rubs. No ectopy.Abdomen: Normal abdominal exam, Abdomen soft, non-tender. Bowel soundsnormal. No masses, organomegalyExtremities: Extremities normal. No deformities, edema, or skindiscoloration. Good capillary refill.Musculoskeletal: No joint swelling, deformity, or tenderness.Peripheral pulses: NormalNeuro: Gait normal.Breast: Deferred by the patient noticed this is recently been done by aging: See EMRASSESSMENT/PLAN: Roslyn Flores is a 47 year old female with abnormalright mammogram. Still awaiting results from MRI which was ordered by. Referral was made and given young age and family history ofbreast cancer. Reviewed with the patient will genetic testing inmanagement of breast cancer in patient's with high risk of mutation.Patient does have family members including a first degree cousin who wasdiagnosed in her 30s with breast cancer. Apparently this cousin has hadgenetic testing in [place] and was reported to have findings that wouldput her at high risk for future breast malignancy per patient report. Thespecifics of this test were not clear and were unknown to the patient.Plan:1. Abnormal mammogram:?Await results of MRI?Given family history would prefer to medical genetics2. Galactorrhea:?Has had testing in the past?The repeat prolactin level and TSH?May pursue further testing based on results her symptomsAlfred Mariposa Llamas MD Normal [facility] Prolactinon 07-16-2017 Prolactin 9.5 ng/mL Normal 4.5-26.8 [facility] Comment on above: Performed By: #### T , PROL ####[facility] [address] [place], [place] [phone] TSHon 07-16-2017 Thyroid stimulating hormone (TSH) 0.320 uU/mL Low 0.400-5.500 [facility] Comment on above: Result Comment: If t he patient is , TSH reference range varies by gestational period:First Trimester 0.100-2.500 uU/mLSecond Trimester 0.200-3.000 uU/mLThird Trimester 0.300-3.000 uU/mLReferences: 1. Giron, Anmol M, Desmond MUNOZ, et al. Management of Thyroid Dysfunction during and : An Endocrine Society Clinical Practice Guideline. J Clin Endocrinol Metab, 2012:97:5337-4292. 2. Asif CARR. Overview of thyroid disease in . UpToDate. 2016. Accessed on April 20, 2016. Performed By: #### T , PROL ####[facility] [place], [place] [phone] Coding Summary.on 07-13-2017 Coding Summary. CODING DATE: 017 [facility] STATUS: Home (Routine DC) PAYOR: Commercial Insurance ADMIT DX: REASON FOR VISIT DX: R92.8 Other abnormal and inconclusive findings on diagnostic imaging of breast FINAL DX: PRINCIPAL: R92.8 Other abnormal and inconclusive findings on diagnostic imaging of breast SECONDARY: Z98.82 Breast implant status Z80.3 Family history of malignant neoplasm of breast PROCEDURES DOCTOR NAME DATE NOTE: The code number assigned matches the documented diagnosis and / or procedure in the patient's chart. However, the narrative phrase printed from the coding software may appear abbreviated, or result in slightly different terminology. Coded By: Steph Shearer Date Saved: 07/13/2017 09:02 am Normal [facility] Vital Signs Date Time Vital Sign Value Performing Clinician Facility 04-22-2022 15:35-0400 Body height 156.21 cm Alejandra Higgins Other [facility] Other 04-22-2022 15:35-0400 Body mass index (BMI) [Ratio] 18.4 kg/m2 Alejandra Higgins Other [facility] Other 04-22-2022 15:35-0400 Body temperature 99.7 [degF] Alejandra Higgins Other [facility] Other 04-22-2022 15:35-0400 Body weight 44.91 kg Alejandra Higgins Other [facility] Other 04-22-2022 15:35-0400 Diastolic blood pressure 81 mm[Hg] Alejandra Higgins Other [facility] Other 04-22-2022 15:35-0400 Respiratory rate 18 /min Alejandra Gisela Other [facility] Other 04-22-2022 15:35-0400 SaO2% (BldA) [Mass fraction] 98 % Alejandra Marcumault Other [facility] Other 04-22-2022 15:35-0400 Systolic blood pressure 143 mm[Hg] Alejandra Marcumault Other [facility] Other Encounters Encounter Date Encounter Type Care Provider Facility Start: 01-15-2024 End: 01-15-2024 ambulatory JOHN RIVAS Not Available Start: 12-07-2022 End: 12-08-[address] COLLINS JARRETT Facility:[facility] Start: 11-23-2022 End: 11-23-[address] COLLINS JARRETT Facility:[facility] Start: 09-17-2022 End: 09-18-[address] JOHN RIVAS Facility:[facility] Start: 09-12-2022 End: 09-13-[address] JOHN RIVAS Facility:[facility] Start: 04-26-2022 End: 04-27-[address] JOHN RIVAS Facility:[facility] Start: 04-22-2022 End: 04-22-2022 ambulatory Alejandra Higgins Other [facility] Other Start: 04-22-2022 Office outpatient visit 15 minutes Alejandra Higgins [facility]: [facility]-05-[facility] Start[facility] 07-16-2017 End: 07-17-2017 Ambulatory SIM LLAMAS [facility] Start: 07-12-2017 End: 07-13-2017 Patient encounter Medina Carey [place] Date Payer Category Payer Unknown 1970 Unknown [id number] 2.16.84 [id number] 1970 Unknown [id number] 2.16.84 [id number] 1970 Unknown [id number] 2.16.84 [id number] 1970 Unknown [id number] 2.16.84 [id number] 1970 Unknown [id number] 2.16.84 [id number] 1970 Unknown [id number] 2.16.84 [id number] 1960 [facility] [id number] Social History Date Type Detail Facility Unknown if ever smoked [facility] Other Sex Assigned At Sex Assigned At Bir th [facility] Other Evaluation note 04-22-2022 Note Date & Type Note Facility 04-22-2022 Evaluation note Encounter Date Diagnosis Assessment Notes Apr, Irritant contact dermatitis, unspecified trigger (ICD-10 - L24.9) Unsure of what is causing reaction; it is often the case with rashes and reactions. OTC Zyrtec may help with symptoms. Recommend using unscented sensitive skin products for a few weeks as system will be more sensitive than normal. Recommend follow up with primary care provider or dermatology if rash does not clear with treatment. Use medication as directed and take with food to prevent stomach upset. [facility] Other History general Narrative - Reported Note Date & Type Note Facility History general Narrative - Reported Type Medical History migraine headache Medical History fibromyalgia Medical History thorasic outlet Medical History htn Surgical History knee arthroscopy Surgical History cholecystectomy Surgical History hysterectomy Surgical History breast lump removed Surgical History bladder suspension, unspecified Surgical History spinal injection oct 2021 Surgical History RFA burn Hospitalization History see above [facility] Other Summary Purpose Family History No Family History Records FoundNo Family History Records FoundNo Family History Records FoundNo Family History Records FoundNo Family History Records Found Advance Directives No Advanced Directives Records FoundNo Advanced Directives Records FoundNo Advanced Directives Records FoundNo Advanced Directives Records FoundNo Advanced Directives Records Found Additional Source Comments INFORMATION SOURCE (unrecogn ized section and content) DATE CREATED AUTHOR 04/30/2018 [facility] DATE CREATED AUTHOR AUTHOR'S ORGANIZ ATION 06/16/2018 [facility] DATE CREATED AUTHOR AUTHOR'S ORGANIZ ATION 11/27/2021 [facility] DATE CREATED AUTHOR AUTHOR'S ORGANIZ ATION 12/09/2022 [facility] pital DATE CREATED AUTHOR AUTHOR'S ORGANIZ ATION 01/16/2024 [facility] EPIC REASON FOR VISIT (unrecogniz ed section and content) RASH ON FEET FOR RECORDS PERTAINING TO PATIENTS WHO ARE OR HAVE BEEN ENROLLED IN A CHEMICAL DEPENDENCY/SUBSTANCEABUSE PROGRAM, SOME INFORMATION MAY BE OMITTED. This clinical summary was aggregated from multiple sources. Caution should be exercised in using it in the provision of clinical care. This summary normalizes information from multiple sources, and as a consequence, information in this document may materially change the coding, format and clinical context of patient data. In addition, data may be omitted in some cases. CLINICAL DECISIONS SHOULD BE BASED ON THE PRIMARY CLINICAL RECORDS. [employer] provides no warranty or guarantee of the accuracy or completeness of information in this document.
[2024-01-18 12:04] LABS: Basophils Percent Auto 0.7 % (0.2-2.0); Eosinophils Absolute Auto 0.1 10^3/uL (0.0-0.7); Eosinophils Percent Auto 1.1 % (0.9-7.0); Hematocrit 45.5 % (36.0-48.0); Hemoglobin 14.8 g/dL (12.0-16.0); Immature Granulocytes Abs Auto 0.01 10^3/uL (0.00-0.03); Immature Granulocytes Pct Auto 0.2 % (0.0-0.5); Lymphocytes Absolute Auto 2.3 10^3/uL (1.2-3.8); Lymphocytes Percent Auto 42.3 % (20.5-60.0); Mean Corpuscular HGB Conc 32.5 g/dL (29.9-35.2); Mean Corpuscular Hemoglobin 29.5 pg (26.7-34.0); Mean Corpuscular Volume 90.8 fL (81.0-99.0); Monocytes Absolute Auto 0.4 10^3/uL (0.3-0.8); Monocytes Percent Auto 7.1 % (1.7-12.0); Neutrophils Absolute Auto 2.6 10^3/uL (1.4-6.5); Neutrophils Percent Auto 48.6 % (43.0-75.0); Platelet Count 237 10^3/uL (150-450); Red Blood Count 5.01 10^6/uL (4.20-5.40); Red Cell Distribution Width 12.9 % (11.0-15.0); White Blood Count 5.3 10^3/uL (4.0-11.0)
[2024-01-18 12:25] LABS: Erythrocyte Sedimentation Rate 2 mm/hr (<=30)
[2024-01-18 12:29] LABS: Alanine Aminotransferase 22 U/L (14-59); Albumin Globulin Ratio 1.1; Albumin Level 3.7 g/dL (3.4-5.0); Alkaline Phosphatase 70 U/L (46-116); Anion Gap 15.3; Aspartate Amino Transferase 23 U/L (15-37); BUN Creatinine Ratio 13.3; Bilirubin Direct 0.1 mg/dL (0.0-0.2); Bilirubin Total 0.4 mg/dL (0.2-1.0); C Reactive Protein <0.50 mg/dL (<=0.50); Carbon Dioxide 24.6 mmol/L (21.0-32.0); Chloride 104 mmol/L (98-107); Estimated GFR (African America 57 (>=60); Estimated GFR (Non-African Ame 47 (>=60); Globulin 3.5 g/dL; Glucose 95 mg/dL (74-106); Potassium 3.9 mmol/L (3.5-5.1); Sodium 140 mmol/L (136-145); Total Protein 7.2 g/dL (6.4-8.2)
[2024-01-21 06:14] LABS: Rheumatoid Factor (RF) <10.0 IU/mL (<14.0)
[2024-01-21 14:09] LABS: Antinuclear Antibodies, IFA Negative (.)
== END 2024-01-18 10:07 | disposition home or self-care (01) ==
LOC: LAB 10:09
PROVIDERS: PCP Family Medicine; Visit Provider Family Medicine
DX: M51.36 Other intervertebral disc degeneration, lumbar region (principal); M25.552 Pain in left hip; M25.551 Pain in right hip; M79.605 Pain in left leg; Z83.49 Family history of other endocrine, nutritional and metabolic diseases; M25.50 Pain in unspecified joint
CPT/HCPCS: 36415; 72100; 73522; 73560; 73590; 80048; 80076; 85025; 85652; 86038; 86140; 86431

== ENCOUNTER 2024-01-20 13:11 | Outpatient (OUT) | payer BC, SELFPAY ==
--- NOTE | 2024-01-20 13:14 | XR_ITS ---
[place] [id number] Patient Name: ROSLYN FLORES MRN: [id number] date: 1970 Sex: F Assigned Patient Location: [facility] Current Patient Location: [facility] Accession/Order Number: [id number] Exam Date: 01/20/2024 13:20 Report Date: 01/20/2024 13:43 At the request of: JOHN RIVAS Procedure: XR DEXA axial skeleton EXAMINATION: XR DEXA axial skeleton, 01/20/2024 1:20 PM EDT HISTORY: Age Related Osteoporosis M81.0 COMPARISON: 2022, 2020, 2013, 2009 TECHNIQUE: Dual-energy X-ray absorptiometry (DEXA) bone density study performed for the axial skeleton. HISTORY: Age Related Osteoporosis M81.0 FINDINGS: Bone mineral density AP spine L1-L4 measures 1.114 g/sq cm. T score -0.6. Normal bone mineral density Lowest bone mineral density in the right femoral trochanter measures 0.479 g/sq cm. T score -3.2. Osteoporosis XR/XR DEXA axial skeleton IMPRESSION: Osteoporosis. High fracture risk Electronically authenticated by: ZACK ADAMES Date: 01/20/2024 13:43
== END 2024-01-20 13:12 | disposition home or self-care (01) ==
LOC: RAD 13:11
PROVIDERS: PCP Family Medicine; Visit Provider Family Medicine
DX: M81.0 Age-related osteoporosis without current pathological fracture (principal)
CPT/HCPCS: 77080

== ENCOUNTER 2024-04-10 10:58 | Outpatient (RCR) | payer BC, SELFPAY | END 2024-04-11 11:34 | disposition home or self-care (01) | LOC: PT 10:58 | PROVIDERS: PCP Family Medicine; Visit Provider Family Medicine | DX: M43.06 Spondylolysis, lumbar region (principal) | CPT/HCPCS: 97162 ==

== ENCOUNTER 2024-08-20 16:20 | Outpatient (OUT) | payer BC, SELFPAY ==
--- OUTSIDE RECORDS SUMMARY | 2024-08-20 16:25 | XMS_ITS | CCD ---
Author Organization [facility] Care Team Providers [facility] Director Name Role Phone LLAMAS, SIM P Unavailable Unavailable NILL, MEDINA R Unavailable Unavailable LLAMAS, SIM P Unavailable Unavailable NILL, MEDINA R Unavailable Unavailable Nill, Medina R Unavailable Unavailable Nill, Medina R Unavailable Unavailable Nill, Medina R Unavailable Unavailable NADERERSEYMOUR~[phone] UNKNOWN Unavailable Unavailable Alejandra Higgins Unavailable EVELYN, DR SEYMOUR French Primary Care Unavailable FAWWASHAIKH Lis Valdivia Attending Unavailable FAWWASkip, SHAIKH Lis Admitting Unavailable FAWWASHAIKH Lis [place] Consulting Unavailable KARASIK, DR GUADALUPE Admitting Unavailable KARASIK, DR GUADALUPE Consulting Unavailable KARASIK, DR GUADALUPE Attending Unavailable NADERER, DR SEYMOUR French Primary Care Unavailable ZIEBER, DR EDUARDO Decker Consulting Unavailable KARASIK, DR GUADALUPE Admitting Unavailable KARASIK, DR GUADALUPE Consulting Unavailable KARASIK, DR GUADALUPE Attending Unavailable NADERER, DR SEYMOUR French Primary Care Unavailable NADERER, DR SEYMOUR French Primary Care Unavailable NADERER, DR SEYMOUR French Consulting Unavailable NADEREJeronimo, DR SEYMOUR French Attending Unavailable NADERER, DR SEYMOUR French Admitting Unavailable NADERER, DR SEYMOUR French Primary Care Unavailable ZIEBER, DR EDUARDO Decker Consulting Unavailable NADERER, DR SEYMOUR French Attending Unavailable NADERER, DR SEYMOUR French Admitting Unavailable NADERER, DR SEYMOUR French Consulting Unavailable NADEREJeronimo, SEYMOUR Attending Unavailable NADERER, SEYMOUR Attending Unavailable NADERER, SEYMOUR Attending Unavailable NadereSeymour decker MD Unavailable Seymour Rivas MD Primary Care Provider Allergies Allergy Classification Reported Allergen(s) Allergy Type Date of Onset Reaction(s) Facility (4 sources) ampicillin; Translations: [AMPICILLIN] Drug Allergy 04-28-20 10 anaphylaxis, Hives, Swelling [facility] [place] Repository (1 source) Penicillins; Translations: [PENICILLINS] Propensity to adverse reactions to drug (disorder) 08-16-20 15 AOF [facility] [place] Repository (1 source) Amoxicillin Drug Allergy anaphylaxis [facility] Other (1 source) metroNIDAZOLE Drug Allergy 11-06-19 24 Rash [facility] (1 source) Penicillin G Drug Allergy 11-06-19 24 Shortness of breath [facility] Medications Current Medications Medication Drug Class(es) Dates Sig (Normalized) Sig (Original) Acetaminophen (1 source) Tylenol Active acetaminophen 325 mg / oxyCODONE hydrochloride 5 mg oral tablet (2 sources) Opioid Agonist Start: 07-31-2024 End: 09-01-2024 take 1 tablet by mouth four times daily as needed for pain oxyCODONE-acetamin ophen (Percocet) 5-325 MG tablet Indications: Lumbar spondylolysis Take 1 tablet by mouth 4 (four) times a day as needed for severe pain for up to 15 days 60 tablet 08/17/2024 09/01/2024 Active alendronic acid 70 mg oral tablet (1 source) Bisphosphonate alendronate (Fosamax) 70 MG tablet Take 1 tablet by mouth every 7 (seven) days Active diphenhydrAMINE (1 source) Histamine-1 Receptor Antagonist Benadryl Active estrogens, conjugated (mcfp) 1.25 mg oral tablet (2 sources) Estrogen Start: 03-04-2024 take 1 tablet by mouth once daily estrogens, conjugated, (Premarin) 1.25 MG tablet Indications: Post menopausal syndrome Take 1 tablet (1.25 mg) by mouth Daily 30 tablet 5 03/04/2024 Active Premarin Active fluconazole 150 mg oral tablet (1 source) Azole Antifungal Start: 03-23-2024 fluconazole (Diflucan) 150 MG tablet Indications: Candidiasis, unspecified TAKE 1 TABLET BY MOUTH once, may repeat in 3 (THREE) days if SYMPTOMS persist 2 tablet 2 03/23/2024 Active 12 hr guaiFENesin 1200 mg / pseudoephedrine hydrochloride 120 mg extended release oral tablet (1 source) alpha-Adrenergic Agonist Start: 01-14-2024 take 120-1200 mg by mouth every twelve hours Mucinex D Max Strength 120-1200 MG tablet sustained-release 12 hour Indications: Allergic rhinitis due to pollen TAKE 1 TABLET BY MOUTH TWICE DAILY 60 tablet 2 01/14/2024 Active hydroCHLOROthiazide (1 source) Thiazide Diuretic hydroCHLOROthi azide Active methylPREDNISolone 4 mg oral tablet (2 sources) Corticosteroid Start: 10-26-2021 methylPREDNISolone 4 MG as directed Orally Once a day for 6 days Apr, Active montelukast 10 mg oral tablet (2 sources) Leukotriene Receptor Antagonist Start: 12-09-2023 End: 12-08-2024 take 1 tablet by mouth at bedtime montelukast (Singulair) 10 MG tablet Indications: Upper respiratory tract infection, unspecified type Take 1 tablet (10 mg) by mouth at bedtime 30 tablet 11 12/09/2023 12/08/2024 Active Singulair Active oxaprozin 600 mg oral tablet (1 source) Nonsteroidal Anti-inflammatory Drug Start: 06-22-2024 take 1 tablet by mouth twice daily as needed oxaprozin (Daypro) 600 MG tablet Indications: Pain in right hip TAKE 1 TABLET BY MOUTH TWICE DAILY NEEDED 60 tablet 3 06/22/2024 Active silver sulfADIAZINE 10 mg/ml topical cream (1 source) Sulfonamide Antibacterial Start: 04-22-2022 Silvadene 1 % 1 application to affected area Externally Twice daily Apr, Active SUMAtriptan 100 mg oral tablet (2 sources) Serotonin-1b and Serotonin-1d Receptor Agonist Start: 08-05-2024 take 1 tablet by mouth every two hours in the morning SUMAtriptan (Imitrex) 100 MG tablet Indications: Migraine without aura, not intractable, with status migrainosus (CMS/HCC) TAKE 1 TABLET BY MOUTH IN THE MORNING at the onset OF headache, may repeat in 2 (TWO) hours if needed 27 tablet 3 08/05/2024 Active Imitrex Not-Taki ng tiZANidine 4 mg oral tablet (2 sources) Central alpha-2 Adrenergic Agonist Start: 07-31-2024 take 2 tablets by mouth at bedtime tiZANidine (Zanaflex) 4 MG tablet Indications: Migraine without aura, not intractable, with status migrainosus (CMS/HCC) TAKE 2 TABLETS BY MOUTH AT BEDTIME 60 tablet 3 07/31/2024 Active Zanaflex Active topiramate 100 mg oral tablet (2 sources) Start: 06-22-2024 take 1 tablet by mouth four times daily topiramate (Topamax) 100 MG tablet Indications: Migraine without aura, not intractable, with status migrainosus (CMS/HCC) TAKE 1 TABLET BY MOUTH FOUR TIMES DAILY 120 tablet 5 06/22/2024 Active Topamax Active Completed/Discontinued Medications Medication Drug Class(es) Dates Sig (Normalized) Sig (Original) dexamethasone 1 mg/ml / tobramycin 3 mg/ml ophthalmic suspension (1 source) Aminoglycoside Antibacterial, Corticosteroid Start: 03-04-2022 take 1 drop(s) into the eye(s) three times daily Tobramycin-Dexam ethasone 0.3-0.1 % 1 drop into affected eye Ophthalmic Three times a day for 5 days March, Not-Taking Tobramycin-Dexametha sone (1 source) Tobramycin-Dexam ethasone Not-Taking Problems Active Problems Problem Classification Problem Date Documented Date Episodic/Chronic Esophageal disorders (1 source) Gastroesophageal reflux disease without esophagitis; Translations: [Gastro-esophageal reflux disease without esophagitis] Onset: 01-15-2024 01-15-2024 Chronic Essential hypertension (1 source) Benign essential hypertension; Translations: [Essential (primary) hypertension] Onset: 01-15-2024 01-15-2024 Chronic Headache; including migraine (1 source) Migraine without aura, not refractory ; Translations: [Migraine without aura, not intractable, with status migrainosus] Onset: 01-15-2024 01-15-2024 Chronic Immunizations and screening for infectious disease (3 sources) Encounter for screening for human papillomavirus (HPV); Translations: [Encounter for screening for other viral diseases] Onset: 05-01-2022 Episodic Lymphadenitis (4 sources) Localized enlarged lymph nodes; Translations: [LOCALIZED ENLARGED LYMPH NODES] Onset: 09-12-2022 Episodic Menopausal disorders (1 source) Disorder associated with menstruation AND/OR menopause; Translations: [Menopausal and female climacteric states] Onset: 01-15-2024 01-15-2024 Chronic Nonmalignant breast conditions (5 sources) Unspecified lump in unspecified breast; Translations: [Unspecified lump in left breast, subareolar] Onset: 12-07-2022 Episodic Osteoporosis (2 sources) Age-related osteoporosis without current pathological fracture; Translations: [Senile osteoporosis] Onset: 12-09-2022 01-15-2024 Chronic Other acquired deformities (2 sources) Spondylolysis; Translations: [Spondylolysis, lumbar region] Onset: 01-15-2024 08-17-2024 Episodic Other upper respiratory disease (1 source) Allergic rhinitis due to pollen; Translations: [Allergic rhinitis due to pollen] Onset: 01-15-2024 01-15-2024 Chronic Residual codes; unclassified (1 source) Asymptomatic menopausal state; Translations: [ASYMPTOMATIC MENOPAUSAL STATE] Onset: 12-09-2022 Episodic Residual codes; unclassified (1 source) Family history of malignant neoplasm of breast; Translations: [FAMILY HX MALIG NEOPLASM OF BREAST] Onset: 12-09-2022 Episodic Spondylosis; intervertebral disc disorders; other back problems (1 source) Cervical spondylosis; Translations: [Spondylosis without myelopathy or radiculopathy, cervical region] Onset: 09-26-2021 01-15-2024 Chronic Viral infection (4 sources) Viral infection, unspecified; Translations: [VIRAL INFECTION UNSPECIFIED] Onset: 09-17-2022 Episodic Past or Other Problems Problem Classification Problem Date Documented Da te Episodic/Chronic Allergic reactions (1 source) Irritant contact dermatitis, unspecified cause Onset: 04-22-2022 Resolved: 04-22-2022 Episodic Other connective tissue disease (1 source) Pain in left lower limb; Translations: [Pain in left leg] Onset: 01-15-2024 Resolved: 03-04-2024 03-04-2024 Episodic Other non-traumatic joint disorders (1 source) Multiple joint pain; Translations: [Pain in unspecified joint] Onset: 01-15-2024 01-15-2024 Episodic Other non-traumatic joint disorders (1 source) Hip pain; Translations: [Pain in left hip] Onset: 01-15-2024 Resolved: 03-04-2024 03-04-2024 Episodic Other nutritional; endocrine; and metabolic disorders (4 sources) Abnormal weight loss; Translations: [ABNORMAL WEIGHT LOSS] Onset: 04-26-2022 Episodic Other screening for suspected conditions (not mental disorders or infectious disease) (6 sources) Encounter for screening for malignant neoplasm of cervix; Translations: [Encounter for screening for diabetes mellitus] Onset: 05-01-2022 Episodic Residual codes; unclassified (1 source) Bilateral lower limb edema; Translations: [Localized edema] Onset: 01-15-2024 01-15-2024 Episodic Results Test Name Value Interpretation Reference Range Facility [facility] CA Don 12-07-2022 [facility] CAD Patient: ROSLYN FLORES Exam Date: 12/07/2022 : 1970 Gender:F Ordering : DR COLLINS JARRETT . Admission #: [id number] Family : Order #: [id number] CLICK HERE TO VIEW EXAM RADIOLOGY REPORT [...] breast cancer at age 59. LOCATION: [facility] BREAST COMPOSITION: Extremely dense, which lowers the [...] M.D. on 12/07/2022 at 15:02 Normal [facility] US BREAST CARMEN LIMITEDon 02-0 US BREAST CARMEN LIMITED Patient: ROSLYN FLORES Exam Date: 12/07/2022 : 1970 Gender:F Ordering : DR COLLINS JARRETT . Admission #: [id number] Family : Order #: [id number] CLICK HERE TO VIEW EXAM RADIOLOGY REPORT [...] breast cancer at age 59. LOCATION: [facility] BREAST COMPOSITION: Extremely dense, which lowers the [...] Trevino M.D. on 12/07/2022 at 15:02 Normal [facility] XR DEXA BONE DENSITYon 12-07 XR DEXA [...] by: EDUARDO TREVINO Date: 2022-12-07 14:46 Normal [facility] PAP ACOG PANEL 2: 30 to 65on 11-28-2022 . . Normal [facility] Comment on above: Result Comment: Perf ormed at: WB Performed By: #### C BC #### [facility] Laboratory [address] [address] [address] Henrietta Herr Age Gdln ACOG Testing 30-65 Normal [facility] Comment on above: Performed By: #### C BC #### [facility] [address] [place], [place] [address] Dr. Henrietta Herr DIAGNOSIS: Comment Normal [facility] Comment on above: Result Comment: NEGA TIVE FOR INTRAEPITHELIAL LESION OR MALIGNANCY. Performed at: WB Performed By: #### C BC #### [facility] [address] [address] [address] Henrietta Herr HPV Aptima Negative Normal Negative [facility] Comment on above: Result Comment: This nucleic acid amplification test detects fourteen high-risk HPV types (16,18,31,33,35,39,45,51,52,56,58,59,66,68) without differentiation. Performed at: =G Performed By: #### C BC #### [facility] [address] [address] [address] Henrietta Herr HPV Genotype Reflex Comment Normal [facility] Comment on above: Result Comment: Crit eria not met, HPV Genotype not performed. Performed at: WB Performed By: #### C BC #### [facility] [address] [place] [address] Dr. Henrietta Herr Methodology: Comment Normal [facility] Comment on above: Result Comment: This liquid based ThinPrep(R) pap test was screened with the use of an image guided system. Performed at: WB Performed By: #### C BC #### [facility] [address] [place] [address] Dr. Henrietta Herr Note: Comment Normal [facility] Comment on above: Result Comment: The [...] WB Performed By: #### C BC #### [facility] [address] [address] [address] Henrietta Herr Performed by: Comment Normal [facility] Comment on above: Result Comment: Maria Elena Page, Line Driver (ASCP) Performed at: WB Performed By: #### C BC #### [facility] [address] [address] [address] Henrietta Herr Specimen adequacy: Comment Normal [facility] Comment on above: Result Comment: Sati sfactory for evaluation. No endocervical cells are present. This is consistent with a history of hysterectomy. Performed at: WB Performed By: #### C BC #### [facility] [address] [place] [address] Dr. Henrietta Herr CBC AUTO DIFFon 09-17-2022 BASO # 0.0 103/ul Normal 0.0-0.1 [facility] Comment on above: Performed By: #### C BC #### [facility] [address] [place] [address] Dr. Henrietta Herr Basophils/100 WBC (Bld) 0.8 % Normal 0.2-2.0 [facility] Comment on above: Performed By: #### C BC #### [facility] [address] [place] [address] Dr. Henrietta Herr EO # 0.1 103/ul Normal 0.0-0.7 [facility] Comment on above: Performed By: #### C BC #### [facility] [address] [place] [address] Dr. Henrietta Herr Eosinophils/100 WBC (Bld) 1.2 % Normal 0.9-7.0 [facility] Comment on above: Performed By: #### C BC #### [facility] [address] [place] [address] Dr. Henrietta Herr Erythrocyte distribution width (RBC) [Ratio] 13.6 % Normal 11.0-15.0 [facility] Comment on above: Performed By: #### C BC #### [facility] [address] [place] [address] Dr. Henrietta Herr Hematocrit (Bld) [Volume fraction] 41.2 % Normal 36.0-48.0 [facility] Comment on above: Performed By: #### C BC #### [facility] [address] [place] [address] Dr. Henrietta Herr Hemoglobin (Bld) [Mass/Vol] 13.2 g/dL Normal 12.0-16.0 [facility] Comment on above: Performed By: #### C BC #### [facility] [address] [place] [address] Dr. Henrietta Herr IG # 0.01 10e3/ul Normal 0.00-0.03 [facility] Comment on above: Performed By: #### C BC #### [facility] [address] [place] [address] Dr. Henrietta Herr IG % 0.2 % Normal 0.0-0.5 [facility] Comment on above: Performed By: #### C BC #### [facility] [address] [place] [address] Dr. Henrietta Herr LYMPH # 1.8 103/ul Normal 1.2-3.8 [facility] Comment on above: Performed By: #### C BC #### [facility] [address] [place] [address] Dr. Henrietta Herr Lymphocytes/100 WBC (Bld) 36.9 % Normal 20.5-60.0 [facility] Comment on above: Performed By: #### C BC #### [facility] [address] [place] [address] Dr. Henrietta Herr MANUAL DIFF REQ NO Normal [facility] Comment on above: Performed By: #### C BC #### [facility] [address] [place] [address] Dr. Henrietta Herr MCH (RBC) [Entitic mass] 28.9 pg Normal 26.7-34.0 [facility] Comment on above: Performed By: #### C BC #### [facility] [address] [place] [address] Dr. Henrietta Herr MCHC (RBC) [Mass/Vol] 32.0 g/dL Normal 29.9-35.2 [facility] Comment on above: Performed By: #### C BC #### [facility] [address] [place] [address] Dr. Henrietta Herr MCV (RBC) [Entitic vol] 90.2 fL Normal 81.0-99.0 [facility] Comment on above: Performed By: #### C BC #### [facility] [address] [place] [address] Dr. Henrietta Herr MONO # 0.3 103/ul Normal 0.3-0.8 [facility] Comment on above: Performed By: #### C BC #### [facility] [address] [address] [address] Henrietta Herr Monocytes/100 WBC (Bld) 6.6 % Normal 1.7-12.0 [facility] Comment on above: Performed By: #### C BC #### [facility] [address] [address] [address] Henrietta Herr NEUT # 2.7 103/ul Normal 1.4-6.5 [facility] Comment on above: Performed By: #### C BC #### [facility] [address] [place] [address] Dr. Henrietta Herr Neutrophils/100 WBC (Bld) 54.3 % Normal 43.0-75.0 [facility] Comment on above: Performed By: #### C BC #### [facility] [address] [place] [address] Dr. Henrietta Herr Platelet mean volume (Bld) [Entitic vol] 10.4 fL Normal 9.5-13.5 [facility] Comment on above: Performed By: #### C BC #### [facility] [address] [place] [address] Dr. Henrietta Herr PLT 207 103/ul Normal 150-450 [facility] Comment on above: Performed By: #### C BC #### [facility] [address] [place] [address] Dr. Henrietta Herr RBC 4.57 106/ul Normal 4.20-5.40 [facility] Comment on above: Performed By: #### C BC #### [facility] [address] [place] [address] Dr. Henrietta Herr WBC 5.0 103/ul Normal 4.0-11.0 [facility] Comment on above: Performed By: #### C BC #### [facility] [address] [place] [address] Dr. Henrietta Herr MONOon 09-17-2022 Monocytes (Bld) [#/Vol] Negative Normal NEGATIVE [facility] Comment on above: Performed By: #### C BC #### [facility] [address] [address] [address] Henrietta Herr PROF CHEM 8 (BAS METB)on Anion gap [Moles/Vol] 9.5 mmol/L Normal [facility] Comment on above: Performed By: #### T SH, BMP #### [facility] [address] [place] [address] Dr. Henrietta Herr Calcium [Mass/Vol] 8.4 mg/dL Critically low 8.5-10.1 [facility] Comment on above: Performed By: #### T SH, BMP #### [facility] [address] [place] [address] Dr. Henrietta Herr Chloride [Moles/Vol] 109 mmol/L Critically high 98-107 [facility] Comment on above: Performed By: #### T SH, BMP #### [facility] [address] [place] [address] Dr. Henrietta Herr CO2 [Moles/Vol] 24.8 mmol/L Normal 21.0-32.0 [facility] Comment on above: Performed By: #### T SH, BMP #### [facility] [address] [place] [address] Dr. Henrietta Herr Creatinine [Mass/Vol] 0.95 mg/dL Normal 0.55-1.02 [facility] Comment on above: Performed By: #### T SH, BMP #### [facility] [address] [place] [address] Dr. Henrietta Herr EGFR-AF KENYAN >60 Normal >=60 [facility] Comment on above: Performed By: #### T SH, BMP #### [facility] [address] [place] [address] Dr. Henrietta Herr EGFR-NON AF KENYAN >60 Normal >=60 [facility] Comment on above: Performed By: #### T SH, BMP #### [facility] [address] [place] [address] Dr. Henrietta Herr Glucose [Mass/Vol] 113 mg/dL Critically high 74-106 [facility] Comment on above: Performed By: #### T SH, BMP #### [facility] [address] [address] [address] Henrietta Herr Potassium [Moles/Vol] 4.3 mmol/L Normal 3.5-5.1 [facility] Comment on above: Performed By: #### T SH, BMP #### [facility] [address] [address] [address] Henrietta Herr Sodium [Moles/Vol] 139 mmol/L Normal 136-145 [facility] Comment on above: Performed By: #### T SH, BMP #### [facility] [address] [address] [address] Henrietta Herr Urea nitrogen [Mass/Vol] 21.0 mg/dL Critically high 7.0-18.0 [facility] Comment on above: Performed By: #### T SH, BMP #### [facility] [address] [place] [address] Dr. Henrietta Herr Urea nitrogen/Creatinin e [Mass ratio] 22.1 mg/mg Normal [facility] Comment on above: Performed By: #### T SH, BMP #### [facility] [address] [place] [address] Dr. Henrietta Herr TSHon 09-17-2022 TSH 1.038 uIU/mL Normal 0.358-3.740 [facility] Comment on above: Performed By: #### T SH, BMP #### [facility] [address] [place] [address] Dr. [address] US ST HEAD_NECKon 09-13-2022 [...] EDUARDO TREVINO Date: 2022-09-13 09:15 Normal [facility] HEPATITIS C ANTIBODYon 04-27 Hep C Virus Ab 0.1 s/co ratio Normal 0.0-0.9 [facility] Comment on above: Result Comment: Nega tive: [...] Hepatitis C Virus (HCV) RNA, Diagnosis, ANDREA ([id number]) and Hepatitis C Virus (HCV) Antibody with reflex to Quantitative Real-time PCR ([id number]). Performed By: #### H CV #### [facility] [address] [place] [address] Dr. Henrietta Herr HIV 1 AND 2 WITH REFLEXon HIV Screen 4th Generation wRfx Non-Reactive Normal Non Reactive [facility] Comment on above: Result Comment: HIV Negative HIV-1/HIV-2 antibodies and HIV-1 p24 antigen were NOT detected. There is no laboratory evidence of HIV infection. Performed By: #### H IV12 #### [facility] [address] [address] [address] Henrietta Herr GLYCOHEMOGLOBIN A1Con 2021 ADA RECOMMENDATION SEE BELOW Normal [facility] Comment on above: Result Comment: ADA RECOMMENDED LIMIT 4.0 - 6.0 ADA THERAPEUTIC TARGET < 7.0 ACTION SUGGESTED > 7.0 Performed By: #### C BC #### [facility] [address] [place] [address] Dr. Henrietta Herr Glucose [Mass/Vol] 114 mg/dL Normal [facility] Comment on above: Performed By: #### C BC #### [facility] [address] [place] [address] Dr. Henrietta Herr HbA1c (Bld) [Mass fraction] 5.6 % Normal 4.5-6.2 [facility] Comment on above: Performed By: #### C BC #### [facility] [address] [place] [address] Dr. Henrietta Herr TSHon 04-26-2022 TSH 0.549 uIU/mL Normal 0.358-3.740 [facility] Comment on above: Performed By: #### T #### [facility] [address] [address] [address] Henrietta Herr XR forearm LT 2V*on 06-14-20 XR forearm LT 2V* [place] [address] XRay Report Signed Patient: Roslyn Flores MR#: [id number] : 1970 Acct:[id number] Age/Sex: 51 / F ADM Date: 06/13/21 Loc: XDUCLY Room: Type: [facility] Attending Dr: Melo Hernandez NP-Sujatha Ordering Provider: Melo WAHLP-C Date of Service: 06/13/21 XR/XR forearm LT 2V*: M79.602 Copies to: Melo WAHLP-C LEFT FOREARM - 2 views CLINICAL HISTORY: [...] May Pineda M.D.06/14/2021 7:46 AM Dictation Location: [place] [address] Transcribed By: [facility] 06/14/21745 Dictated By: May Pineda MD 06/14/2145 Signed By: 06/14/2146 [facility] CNOVSPon 08-05-2017 CNOVSP Visit (SP) Office (HEMACL) -ROSLYN FLORES ([id number]) 1970 FDate Time Provider Svykopkfum30/2/17 9:00 AM SIM LLAMAS HEMACL During your visit today, we recorded the following information about you: Pulse Respiration Blood pressure Weight 83/minute 18/minute 116/62 49.7 kg Height 1.575 mReferring Provider: MEDINA CAREY [[id number]]Allergies As of Date: 08/05/2017 Noted Allergy ReactionAMPICILLIN [...] this encounter MELOXICAM 7.5 MG TABLET >> Rita Llanes 08/05/2017 9:02 AM >> MARIO ALBERTO FebruaryAug 05, 2017 9:02 AM Received from: External Pharmacy Received Sig: TAKE 1 TABLET BY MOUTH EVERYDAY PHENAZOPYRIDINE 200 MG TABLET >> February Mario Alberto 08/05/2017 9:02 AM >> MARIO ALBERTO FebruaryAug 05, 2017 9:02 AM Received from: External Pharmacy SULFAMETHOXAZOLE 800 MG-TRIMETHOPRIM 160 MG TABLET >> February Mario Alberto 08/05/2017 9:02 AM >> MARIO ALBERTO FebruaryAug 05, 2017 9:02 AM Received from: External Pharmacy Received Sig: TAKE 1 TABLET BY MOUTH TWICEDAILY FOR 5 DAYSProblem List As Of Date 08/05/2017 Noted Resolved Abnormal bleeding time [R79.1] INVALID FOR*Encounter Status:Closed by SIM LLAMAS MD on 08/06/17 [facility] CNOVSPon 07-16-2017 CNOVSP Visit (SP) Office (HEMASA) -ROSLYN FLORES ([id number]) 1970 FDate Time Provider Department07/16/17 2:45 PM SIM LLAMAS [...] also has a history of endometriosis leaving [facility] in the past. She is on estrogen [...] kg (110 lb 3.2 oz) BMI 20.16 kg/b6Nuvxdyj appearance: well appearing, alert, in no acute [...] this cousin has had genetic testing in [place] and wasreported to have findings that would [...] based on results her symptomsAlfred Mariposa Llamas MDReferring Provider: MEDINA CAREY [[id number]]Allergies As of Date: 07/16/2017 Noted Allergy ReactionAMPICILLIN 04/28/2010 7 - SwellingPENICILLINS 08/16/2015 10 - AnaphylaxisDate Reviewed: 07/16/2017Reviewed by: Heather Toney - Fully AssessedReason for Visit: Consult [173] Cmt: ref for abnormal mammogramPrimary Visit Diagnosis:Abnormal mammogram [R92.8] Other Visit Diagnoses:Nipple discharge in female [N64.52] Family history of breast cancer [Z80.3]Order(s):PROLACTIN BLD [SQPROL] Order #: [id number] FUTURE TSH BLD [SQTSH] Order #: [id number] FUTURE CONSULT TO MEDICAL GENETICS [19991108] Order #: [id number]: 1Follow-up and Disposition History RecordedPrescriptions as of [...] by SIM LLAMAS MD on 07/16/17 Normal [facility] MRI Breast w/o and/or w/ Con trast [...] AFTechnical CommentsMultiHanceContrast amount in ml's: 10 Normal [facility] PROGRESSon 07-16-2017 PROGRESS HNO ID: [id number] thor: Sim Vangice: (none)Author Type: PhysicianType: Progress [...] kg (110 lb 3.2 oz) BMI 20.16 kg/o7Isjshrw appearance: well appearing, alert, in no acute [...] Apparently this cousin has hadgenetic testing in [place] and was reported to have findings that [...] results her symptomsAlfred Mariposa Llamas MD Normal [facility] Prolactinon 07-16-2017 Prolactin 9.5 ng/mL Normal 4.5-26.8 [facility] Comment on above: Performed By: #### T KANE, PROL ####[facility] [place], [place] [phone] TSHon 07-16-2017 Thyroid stimulating hormone (TSH) 0.320 uU/mL Low 0.400-5.500 [facility] Comment on above: Result Comment: If t he patient is , TSH reference range varies by gestational period:First Trimester 0.100-2.500 uU/mLSecond Trimester 0.200-3.000 uU/mLThird Trimester 0.300-3.000 uU/mLReferences: 1. Perry L, Anmol M, Desmond EK, et al. Management of Thyroid Dysfunction during and : An Endocrine Society Clinical Practice Guideline. J Clin Endocrinol Metab, 2012:97:0767-9658. 2. Asif CARR. Overview of thyroid disease in . UpToDate. 2016. Accessed on April 20, 2016. Performed By: #### T KANE, PROL ####[facility] [place], [place] [phone] Coding Summary.on 07-13-2017 Coding Summary. 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 ADMIT DX: REASON FOR [...] Shearer Date Saved: 07/13/2017 09:02 am Normal [facility] Vital Signs Date Time Vital Sign Value Performing Clinician Facility 04-22-2022 15:35-0400 Body height 156.21 cm Alejandra Higgins Other [facility] Other 04-22-2022 15:35-0400 Body mass index (BMI) [Ratio] 18.4 kg/m2 Alejandra Higgins Other [facility] Other 04-22-2022 15:35-0400 Body temperature 99.7 [degF] Alejandra Higgins Other [facility] Other 04-22-2022 15:35-0400 Body weight 44.91 kg Alejandra Higgins Other [facility] Other 04-22-2022 15:35-0400 Diastolic blood pressure 81 mm[Hg] Alejandra Higgins Other [facility] Other 04-22-2022 15:35-0400 Respiratory rate 18 /min Alejandra Higgins Other [facility] Other 04-22-2022 15:35-0400 SaO2% (BldA) [Mass fraction] 98 % Alejandra Higgins Other [facility] Other 04-22-2022 15:35-0400 Systolic blood pressure 143 mm[Hg] Alejandra Higgins Other [facility] Other Encounters Encounter Date Encounter Type Care Provider Facility Start: 08-17-2024 End: 08-17-2024 Janette Rivas MD Work Phone: [facility] Comment on above: Lumbar spondylolysis Start: 06-29-2024 End: 06-29-2024 ambulatory SEYMOUR RIVAS Not Available Start: 03-04-2024 End: 03-04-2024 ambulatory SEYMOUR RIVAS Not Available Start: 01-15-2024 End: 01-15-2024 ambulatory SEYMOUR RIVAS Not Available Start: 12-07-2022 End: 12-08-[address] COLLINS JARRETT Facility:[facility] Start: 11-23-2022 End: 11-23-[address] COLLINS JARRETT Facility:[facility] Start: 09-17-2022 End: 09-18-[address] SEYMOUR RIVAS Facility:[facility] Start: 09-12-2022 End: 09-13-[address] SEYMOUR RIVAS Facility:[facility] Start: 04-26-2022 End: 04-27-[address] SEYMOUR RIVAS Facility:[facility] Start: 04-22-2022 End: 04-22-2022 ambulatory Alejandra Higgins Other [facility] Other Start: 04-22-2022 Office outpatient vi sit 15 minutes Alejandra Higgins [facility] [place] Start: 08-05-2017 Ambulatory SIM LLAMAS [facility] Start: 07-16-2017 End: 07-17-2017 [facility] Start: 07-12-2017 End: 07-13-2017 Patient encounter Medina Decker Aurelio Facility:[facility] Procedures Date Procedure Procedure Detail Performing Clinician Start: 12-27-2022 Colonoscopy Seymour laurent MD Work Phone: Start: 12-07-2022 Mammography Seymour laurent MD Work Phone: Plan of Treatment Date Care Activity Detail Author Start: 12-27-2032 Screening for malign ant neoplasm of colon [facility] Start: 12-28-2024 End: 12-28-2024 Patient encounter procedure 12/28/2024 2:30 PM EST Office Visit [facility] [address] [place] [phone] Seymour Rivas MD [address] [place] [phone] [facility] Start: 08-19-2024 End: 08-19-2024 Patient encounter procedure 08/19/2024 10:15 AM EDT Office Visit [facility] [address] [place] [phone] Seymour Rivas MD [address] [place] [address] [facility] Start: 07-05-2024 Influenza vaccination Influenza Vacc ine (#1) [facility] Start: 12-07-2023 Screening for malign ant neoplasm of breast Mammogram [facility] Start: 1999 Screening for malign ant neoplasm of cervix HPV/Cotest [facility] Start: 1990 Screening for malign ant neoplasm of cervix Pap Smear [facility] Start: 1970 Screening for malign ant neoplasm of colon [facility] Immunizations Immunization Date Immunization Notes Care Provider Fa cili 10-03-2023 influenza virus vacc ine, unspecified formulation Seymour Rivas MD Work Phone: [facility] Payers Date Payer Category Payer [facility] er [id number] 2022 Unknown [id number] 2017 Unknown 1970 Unknown [id number] [id number]. 2.593 1970 Unknown [id number] [id number]. 2.593 1970 Unknown [id number] 2.16.840.1.179364.3.579. 2.593 1970 Unknown [id number] 2.16.840.1.710072.3.579. 2.593 1970 Unknown [id number] 2.16.840.1.722561.3.579. 2.593 1970 Unknown [id number] 2.16.840.1.011499.3.579. 2.1259 1970 Unknown [id number] 2.16.840.1.476651.3.579. 2.1259 1970 Unknown [id number] [id number]. 2.[address] [facility] [id number] Social History Date Type Detail Facility Unknown if ever smoked [facility] Other Start: 06-29-2024 Sex Assigned At N [employer] Other Start: 12-18-2023 Tobacco smoking stat [facility] Never smoked tobacco [facility] Start: 06-29-2024 History of Social function [facility] Start: 1970 Sex assigned at Not on file N [facility] Evaluation note 04-22-2022 Note Date & Type [...] take with food to prevent stomach upset. [facility] Other Evaluation note Note Date & Type Note Facility Evaluation note Diagnosis Arthralgia of multiple joints- Primary Pain in joint, multiple sites DDD (degenerative disc disease), lumbar Degeneration of lumbar or lumbosacral intervertebral disc Left leg pain Pain in soft tissues of limb Left hip pain Pain in joint, pelvic region and thigh Right hip pain Pain in joint, pelvic region and thigh Breast cancer screening by mammogram Post menopausal syndrome Asymptomatic postmenopausal status (age-related) (natural) Age-related osteoporosis without current pathological fracture (CMS/HCC) Benign essential hypertension (CMS/HCC)- Primary Essential hypertension, benign Lumbar spondylolysis Lumbosacral spondylosis without myelopathy Migraine without aura and with status migrainosus, not intractable (CMS/HCC) Seasonal allergic rhinitis due to pollen Age-related osteoporosis without current pathological fracture (CMS/HCC) Post menopausal syndrome Asymptomatic postmenopausal status (age-related) (natural) Benign essential hypertension (CMS/HCC)- Primary Essential hypertension, benign Lumbar spondylolysis Lumbosacral spondylosis without myelopathy Migraine without aura and with status migrainosus, not intractable (CMS/HCC) Seasonal allergic rhinitis due to pollen Lumbar spondylolysis Lumbosacral spondylosis without myelopathy documented in this encounter [facility] History general Narrative - Reported Note Date [...] History RFA 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 Hospitalization History see above [facility] Other Summary Purpose Family History No Family History Records FoundNo Family History Records FoundNo Family History Records FoundNo Family History Records FoundNo Family History Records Found Advance Directives No Advanced Directives Records FoundNo Advanced Directives Records FoundNo Advanced Directives Records FoundNo Advanced Directives Records FoundNo Advanced Directives Records Found Additional Source Comments INFORMATION SOURCE (unrecogn ized section and content) DATE CREATED AUTHOR 04/30/2018 [facility] DATE CREATED AUTHOR AUTHOR'S ORGANIZ ATION 06/16/2018 [facility] DATE CREATED AUTHOR AUTHOR'S ORGANIZ ATION 11/27/2021 [facility] DATE CREATED AUTHOR AUTHOR'S ORGANIZ ATION 12/09/2022 [facility] DATE CREATED AUTHOR AUTHOR'S ORGANIZ ATION 07/01/2024 [facility] EPIC REASON FOR VISIT (unrecogniz ed section and content) Reason Onset Date Comments Med Refill 08/17/2024 Care Teams (unrecognized sec tion and content) Research Center Director Relationship Specialty Start Date End Date Seymour Rivas MD [address] [place] [phone] [facility]/04[facility]23 Seymour Rivas MD [address] [place] [address] PCP - General Family Medicine 12/18/23 FOR RECORDS PERTAINING TO PATIENTS WHO ARE [...] BE BASED ON THE PRIMARY CLINICAL RECORDS. [employer] provides no warranty or guarantee of the accuracy or completeness of information in this document.
--- NOTE | 2024-08-20 16:35 | XR_ITS ---
[address] [address] Patient Name: ROSLYN FLORES MRN: [id number] date: 1970 Sex: F Assigned Patient Location: [facility] Current Patient Location: Accession/Order Number: [id number] Exam Date: 08/20/2024 16:30 Report Date: 08/24/2024 07:43 At the request of: JOHN RIVAS Procedure: XR shoulder LT min 2V PROCEDURE: XR shoulder LT min 2V COMPARISON: None. HISTORY: Chronic left shoulder pain, M25.512,G89.29 FINDINGS: BONES:No fracture, acute abnormality, or significant arthropathy. SOFT TISSUES:Negative. No visible soft tissue swelling. EFFUSION:None visible. OTHER: Negative. XR/XR shoulder LT min 2V IMPRESSION: No acute radiographic abnormality Electronically authenticated by: ZACK ADAMES Date: 08/24/2024 07:43
== END 2024-08-20 16:21 | disposition home or self-care (01) ==
LOC: RAD 16:20
PROVIDERS: PCP Family Medicine; Visit Provider Family Medicine
DX: M25.512 Pain in left shoulder (principal); G89.29 Other chronic pain
CPT/HCPCS: 73030

== ENCOUNTER 2024-09-27 15:30 | Emergency (ER) | payer BC, SELFPAY ==
[2024-09-27 15:38] VITALS: BP 181/105; PULSE 107; TEMP 36.7; O2SAT 98; BMI 20.1
--- OUTSIDE RECORDS SUMMARY | 2024-09-27 15:48 | XMS_ITS | CCD ---
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 Name Role Phone LLAMAS, SIM P Unavailable Unavailable NILL, MEDINA R Unavailable Unavailable LLAMAS, SIM P Unavailable Unavailable NILL, MEDINA R Unavailable Unavailable Nill, Medina R Unavailable Unavailable Nill, Medina R Unavailable Unavailable Nill, Medina R Unavailable Unavailable NADERESEYMOUR Decker~[phone] UNKNOWN Unavailable Unavailable Alejandra Higgins Unavailable EVELYN, DR SEYMOUR French Primary Care Unavailable SHAIKH Lis PRADO Attending Unavailable FAWWASkip, SHAIKH Lis Admitting Unavailable SHAIKH Lis PRADO Consulting Unavailable KARASIK, DR GUADALUPE Admitting Unavailable KARASIK, DR GUADALUPE Consulting Unavailable KARASIK, DR GUADALUPE Attending Unavailable NADERER, DR SEYMOUR French Primary Care Unavailable ZIEBER, DR EDUARDO Decker Consulting Unavailable KARASIK, DR GUADALUPE Admitting Unavailable KARASIK, DR GUADALUPE Consulting Unavailable KARASIK, DR GUADALUPE Attending Unavailable NADEREJeronimo, DR SEYMOUR French Primary Care Unavailable NADEREJeronimo, DR SEYMOUR French Primary Care Unavailable NADEREJeronimo, DR SEYMOUR French Consulting Unavailable NADEREJeronimo, DR SEYMOUR French Attending Unavailable NADERER, DR SEYMOUR French Admitting Unavailable NADERER, DR SEYMOUR French Primary Care Unavailable RON, DR EDUARDO Decker Consulting Unavailable NADEREJeronimo, DR SEYMOUR French Attending Unavailable NADEREJeronimo, DR SEYMOUR French Admitting Unavailable NADERER, DR SEYMOUR French Consulting Unavailable Seymour Rivas MD Unavailable Seymuor Rivas MD Primary Care Provider [phone] SEYMOUR RIVAS Attending Unavailable EVELYN, SEYMOUR Attending Unavailable EVELYN, SEYMOUR Attending Unavailable EVELYN, SEYMOUR Attending Unavailable MARK BURROUGHS Attending Unavailable SEYMOUR RIVAS Referring Unavailable MARK BURROUGHS Referring Unavailable MARK BURROUGHS Attending Unavailable MARK BURROUGHS Attending Unavailable MARK BURROUGHS Referring Unavailable SEYMOUR RIVAS Primary Care Unavailable MARK BURROUGHS Referring Unavailable SEYMOUR RIVAS Primary Care Unavailable Allergies Allergy Classification Reported Allergen(s) Allergy Type Date of Onset Reaction(s) Facility (15 sources) ampicillin; Translations: [AMPICILLIN] Drug Allergy 0 anaphylaxis, Hives, Swelling [facility] Repository (2 sources) Penicillins; Translations: [PENICILLINS] Propensity to adverse reactions to drug (disorder) 0 AOF [facility] Repository (1 source) Amoxicillin Drug Allergy anaphylaxis Dynamic Signal Other (13 sources) metroNIDAZOLE; Translations: [METRONIDAZOLE] Drug Allergy 1 Rash [facility] (12 sources) Penicillin G Drug Allergy 4 Shortness of breath [facility] Medications Current Medications Medication Drug Class(es) Dates Sig (Normalized) Sig (Original) Acetaminophen (1 source) Tylenol Active alendronic acid 70 mg oral tablet (12 sources) Bisphosphonate alendronate (Fosamax) 70 MG tablet Take 1 tablet by mouth every 7 (seven) days Active diphenhydrAMINE (1 source) Histamine-1 Receptor Antagonist Benadryl Active estrogens, conjugated (detention) 1.25 mg oral tablet (13 sources) Estrogen Start: 08-24-2024 take 1 tablet by mouth once daily Premarin 1.25 MG tablet Indications: Post menopausal syndrome TAKE 1 TABLET BY MOUTH DAILY 30 tablet 5 08/24/2024 Active Start: 03-04-2024 take 1 tablet by mabel th once daily estrogens, conjugated, (Premarin) 1.25 MG tablet Indications: Post menopausal syndrome Take 1 tablet (1.25 mg) by mouth Daily 30 tablet 5 03/04/2024 Active Premarin Active 12 hr guaiFENesin 1200 mg / pseudoephedrine hydrochloride 120 mg extended release oral tablet (12 sources) alpha-Adrenergic Agonist Start: 01-14-2024 take 120-1200 mg [...] Apr, Active montelukast 10 mg oral tablet (13 sources) Leukotriene Receptor Antagonist Start: 12-09-2023 End: 12-08-2024 take 1 tablet by mouth at bedtime montelukast (Singulair) 10 MG tablet Indications: Upper respiratory tract infection, unspecified type Take 1 tablet (10 mg) by mouth at bedtime 30 tablet 11 12/09/2023 12/08/2024 Active Singulair Active oxaprozin 600 mg oral tablet (12 sources) Nonsteroidal Anti-inflammatory Drug Start: 06-22-2024 take 1 [...] Apr, Active SUMAtriptan 100 mg oral tablet (13 sources) Serotonin-1b and Serotonin-1d Receptor Agonist Start: [...] Not-Taki ng tiZANidine 4 mg oral tablet (13 sources) Central alpha-2 Adrenergic Agonist Start: 07-31-2024 take 2 tablets by mouth at bedtime tiZANidine (Zanaflex) 4 MG tablet Indications: Migraine without aura, not intractable, with status migrainosus (CMS/HCC) TAKE 2 TABLETS BY MOUTH AT BEDTIME 60 tablet 3 07/31/2024 Active Zanaflex Active topiramate 100 mg oral tablet (13 sources) Start: 06-22-2024 take 1 tablet by mouth four times daily topiramate (Topamax) 100 MG tablet Indications: Migraine without aura, not intractable, with status migrainosus (CMS/HCC) TAKE 1 TABLET BY MOUTH FOUR TIMES DAILY 120 tablet 5 06/22/2024 Active Topamax Active Completed/Discontinued Medications Medication Drug Class(es) Dates Sig (Normalized) Sig (Original) acetaminophen 325 mg / oxyCODONE hydrochloride 5 mg oral tablet (14 sources) Opioid Agonist Start: 07-31-2024 End: 09-17-2024 take 1 tablet by mouth four times daily as needed for pain oxyCODONE-acetamin ophen (Percocet) 5-325 MG tablet Indications: Lumbar spondylolysis Take 1 tablet by mouth 4 (four) times a day as needed for severe pain for up to 15 days 60 tablet 08/31/2024 09/17/2024 Discontinued (Reorder) dexamethasone 1 mg/ml / tobramycin 3 mg/ml ophthalmic suspension (1 source) Aminoglycoside Antibacterial, Corticosteroid Start: 03-04-2022 take 1 drop(s) into the eye(s) three times daily Tobramycin-Dexamet hasone 0.3-0.1 % 1 drop into affected eye Ophthalmic Three times a day for 5 days March, Not-Taking fluconazole 150 mg oral tablet (12 sources) Azole Antifungal Start: 03-23-2024 End: 09-16-2024 fluconazole (Diflucan) 150 MG tablet Indications: Candidiasis, unspecified TAKE 1 TABLET BY MOUTH once, may repeat in 3 (THREE) days if SYMPTOMS persist 2 tablet 2 03/23/2024 09/16/2024 Discontinued (Reorder) Tobramycin-Dexameth asone (1 source) Tobramycin-Dexam et hasone Not-Taking Problems Active Problems Problem Classification Problem Date Documented Date Episodic/Chronic Esophageal disorders (12 sources) Gastroesophageal reflux disease without esophagitis; Translations: [Gastro-esophageal reflux disease without esophagitis] Onset: 01-15-2024 01-15-2024 Chronic Essential hypertension (12 sources) Benign essential hypertension; Translations: [Essential (primary) hypertension] Onset: 01-15-2024 01-15-2024 Chronic Headache; including migraine (12 sources) Migraine without aura, not refractory ; Translations: [Migraine without aura, not intractable, with status migrainosus] Onset: 01-15-2024 01-15-2024 Chronic Immunizations and screening for infectious disease (3 sources) Encounter for screening for human papillomavirus (HPV); Translations: [Encounter for screening for other viral diseases] Onset: 05-01-2022 Episodic Lymphadenitis (4 sources) Localized enlarged lymph nodes; Translations: [LOCALIZED ENLARGED LYMPH NODES] Onset: 09-12-2022 Episodic Menopausal disorders (12 sources) Disorder associated with menstruation AND/OR menopause; Translations: [Menopausal and female climacteric states] Onset: 01-15-2024 01-15-2024 Chronic Nonmalignant breast conditions (5 sources) Unspecified lump in unspecified breast; Translations: [Unspecified lump in left breast, subareolar] Onset: 12-07-2022 Episodic Osteoporosis (13 sources) Age-related osteoporosis without current pathological fracture; Translations: [Senile osteoporosis] Onset: 12-09-2022 01-15-2024 Chronic Other connective tissue disease (2 sources) Nontraumatic rotator cuff tear; Translations: [Unspecified rotator cuff tear or rupture of left shoulder, not specified as traumatic] 09-01-2024 Episodic Other connective tissue disease (2 sources) Tendinosis of left shoulder; Translations: [Other specified disorders of tendon, left shoulder] 09-10-2024 Episodic Other connective tissue disease (6 sources) Ganglion cyst of left shoulder; Translations: [Ganglion, left shoulder] 09-10-2024 Episodic Other connective tissue disease (1 source) Ganglion, left shoulder; Translations: [Ganglion, left shoulder] Onset: 09-22-2024 Episodic Other non-traumatic joint disorders (18 sources) Derangement of left shoulder joint; Translations: [Other specific joint derangements of left shoulder, not elsewhere classified] Onset: 08-19-2024 08-19-2024 Chronic Other non-traumatic joint disorders (18 sources) Chronic pain of left upper limb; Translations: [Pain in left shoulder] Onset: 08-19-2024 08-19-2024 Episodic Other non-traumatic joint disorders (1 source) Pain in left shoulder; Translations: [Pain in left shoulder] Onset: 09-22-2024 Episodic Other upper respiratory disease (12 sources) Allergic rhinitis due to pollen; Translations: [Allergic rhinitis due to pollen] Onset: 01-15-2024 01-15-2024 Chronic Residual codes; unclassified (1 source) Asymptomatic menopausal state; Translations: [ASYMPTOMATIC MENOPAUSAL STATE] Onset: 12-09-2022 Episodic Residual codes; unclassified (1 source) Family history of malignant neoplasm of breast; Translations: [FAMILY HX MALIG NEOPLASM OF BREAST] Onset: 12-09-2022 Episodic Spondylosis; intervertebral disc disorders; other back problems (12 sources) Cervical spondylosis; Translations: [Spondylosis without myelopathy or radiculopathy, cervical region] Onset: 09-26-2021 01-15-2024 Chronic Sprains and strains (2 sources) Injury of superior glenoid labrum of shoulder joint; Translations: [Superior glenoid labrum lesion of left shoulder, initial encounter] 09-10-2024 Episodic Unclassified (2 sources) Chronic pain of left upper limb 08-19-2024 Viral infection (4 sources) Viral infection, unspecified; Translations: [VIRAL INFECTION UNSPECIFIED] Onset: 09-17-2022 Episodic Past or Other Problems Problem Classification Problem Date Documented Da te Episodic/Chronic Allergic reactions (1 source) Irritant contact dermatitis, unspecified cause Onset: 04-22-2022 Resolved: 04-22-2022 Episodic Other acquired deformities (14 sources) Spondylolysis; Translations: [Spondylolysis, lumbar region] Onset: 01-15-2024 08-17-2024 Episodic Other connective tissue disease (12 sources) Pain in left lower limb; Translations: [Pain in left leg] Onset: 01-15-2024 Resolved: 03-04-2024 03-04-2024 Episodic Other non-traumatic joint disorders (12 sources) Multiple joint pain; Translations: [Pain in unspecified joint] Onset: 01-15-2024 01-15-2024 Episodic Other non-traumatic joint disorders (12 sources) Hip pain; Translations: [Pain in left hip] Onset: 01-15-2024 Resolved: 03-04-2024 03-04-2024 Episodic Other nutritional; endocrine; and metabolic disorders (4 sources) Abnormal weight loss; Translations: [ABNORMAL WEIGHT LOSS] Onset: 04-26-2022 Episodic Other screening for suspected conditions (not mental disorders or infectious disease) (17 sources) Encounter for screening for malignant neoplasm of cervix; Translations: [Encounter for screening for diabetes mellitus] Onset: 05-01-2022 Episodic Residual codes; unclassified (12 sources) Bilateral lower limb edema; Translations: [Localized edema] Onset: 01-15-2024 01-15-2024 Episodic Results Test Name Value Interpretation Reference Range Facility FL MR/CT ARTHROGRAM SHOULDER LT W GUIDon 09-22-2024 FL MR/CT ARTHROGRAM SHOULDER LT W GUID FL MR/CT ARTHROGRAM SHOULDER LT W GUID FLUOROSCOPICALLY GUIDED ARTHROGRAM CLINICAL INFORMATION: Left shoulder pain and limited range of motion. Ganglion of left shoulder. PROCEDURE: The patient was brought to the fluoroscopy suite where informed written consent was obtained after discussion of the risks, benefits, and alternatives to the procedure. The patient understood and wished to proceed. All questions were answered. A timeout was performed prior to the procedure. The patient was placed the supine position on fluoroscopic examination table. The skin over the left shoulder joint was marked under fluoroscopic guidance. The skin was then prepped and draped in the usual sterile fashion. After local anesthesia was obtained with 1% lidocaine, a #22 gauge spinal needle was advanced into the joint. Intra-articular placement was confirmed with injection of a small amount of Omnipaque 300 contrast material. After this, 11 mL of a solution containing 10 mL of Omnipaque 300, 10 mL of 0.9 % saline solution, and 0.2 mL of ProHance gadolinium solution was introduced into the joint space. Finally, the needle and all material was removed. Antiseptic was cleansed from the skin. A bandage was placed over the needle insertion site. Postprocedure images of the left shoulder were obtained. There is good contrast filling of the joint space. There is no evidence of full-thickness rotator cuff tear. The patient tolerated the procedure well. There were no immediate complications. Fluoroscopy time: 1.2 minutes minutes. Reference Air Kerma: 15.228 mGy CONCRETE BUSTER OPERATOR: Bj Roman MD IMPRESSION: 1. Technically successful left shoulder arthrogram as detailed above. 2. Left shoulder MR arthrogram dictated separately. Finalized by Bj Roman MD on 09/22/2024 10:32 AM [facility] MR ARTHROGRAM SHOULDER LT W CONTon 09-22-2024 MR ARTHROGRAM SHOULDER LT W CONT MR ARTHROGRAM SHOULDER LT W CONT History: Pain. MRI Left Shoulder post arthrogram Technique: Multiplanar/multisequence imaging of the shoulder was obtained following prior injection of contrast material into the joint space, arthrogram. Findings: The anterior supraspinatus tendon is torn. This is a full-thickness tear involving less than 50% of the fibers. Contrast is appreciated in the joint space, in the bicipital groove, and superficial to the supraspinatus tendon.The infraspinatus and teres minor tendons are intact. Partial thickness tear of the subscapularis is noted. The labrum is intact. Study is affected by motion artifact. Marrow signal of the humeral head is normal. No evidence of AVN, healing fracture or bone contusion. No advanced glenohumeral joint osteoarthropathy or chondromalacia is noted. The biceps tendon is intact. Bicipital anchor is intact.Slightly laterally downsloping acromion. Mild degenerative changes in AC joint are noted. No muscle volume loss is appreciated. Impression: * Supraspinatus tendon is torn anteriorly. Partial-thickness tear of the subscapularis. Follow-up with orthopedics is advised. Motion affected study Finalized by Flower Vera MD on 09/22/2024 10:14 AM Normal [facility] MR SHOULDER LEFT WO IV CONTR Darryl 09-07-2024 MR SHOULDER LEFT WO IV CONTRAST EXAMINATION/TECHNIQUE: MR SHOULDER LEFT WO IV CONTRAST HISTORY: Left shoulder pain. Limited range of motion. COMPARISON: Radiographs 08/20/2024. RESULT: Some limitations from motion. Patient unable to tolerate repeat sequences. Rotator Cuff Tendons: Mild to moderate tendinosis involving supraspinatus and infraspinatus, without evidence for tear, within limits of motion. With reactive cystic change especially at the infraspinatus insertion. Subscapularis and teres minor appear intact. Long Head Biceps Tendon: Appears intact with appropriate location. Muscle: Muscle bulk and signal intensity are within normal limits. Labrum: Not well assessed secondary to motion. No displaced tear. Areas of fraying/tearing superiorly. Bones and Marrow: No evidence of fracture or bone marrow replacing process. Glenohumeral Joint: Osteophytes without measurable full-thickness chondral defect within limits of motion. No joint effusion. Acromioclavicular Joint: Mild degenerative changes. Other: No other significant abnormality. IMPRESSION: Rotator cuff tendinosis, without evidence for tear. ELECTRONICALLY SIGNED BY: Daniel John MD Normal Not Available Comment on above: Order Comment: MRI L T shoulder w/o contrast. To be done at [facility] MG MAMM DIAGNOSTIC 3D CARMEN CA Don 12-07-2022 MG MAMM DIAGNOSTIC 3D CARMEN CAD Patient: ROSLYN FLORES Exam Date: 12/07/2022 : 1970 Gender:F Ordering : DR COLLINS JARRETT . Admission #: [id number] Family : Order #: [id number] CLICK HERE TO VIEW EXAM RADIOLOGY REPORT [...] breast cancer at age 59. LOCATION: [facility] BREAST COMPOSITION: Extremely dense, which lowers the [...] M.D. on 12/07/2022 at 15:02 Normal [facility] US BREAST CARMEN LIMITEDon 02-0 US BREAST CARMEN LIMITED Patient: ROSLYN FLORES Exam Date: 12/07/2022 : 1970 Gender:F Ordering : DR COLLINS JARRETT . Admission #: [id number] Family : Order #: [id number] CLICK HERE TO VIEW EXAM RADIOLOGY REPORT [...] breast cancer at age 59. LOCATION: [facility] BREAST COMPOSITION: Extremely dense, which lowers the [...] Trevino M.D. on 12/07/2022 at 15:02 Normal [facility] XR DEXA BONE DENSITYon 12-07 XR DEXA [...] by: EDUARDO TREVINO Date: 2022-12-07 14:46 Normal [facility] PAP ACOG PANEL 2: 30 to 65on 11-28-2022 . . Normal [facility] Comment on above: Result Comment: Perf ormed at: WB Performed By: #### C BC #### [facility] [address] [address] [address] Henrietta Herr Age Gdln ACOG Testing 30-65 Normal [facility] Comment on above: Performed By: #### C BC #### [facility] [address] [address] [address] Henrietta Herr DIAGNOSIS: Comment Normal [facility] Comment on above: Result Comment: NEGA TIVE FOR INTRAEPITHELIAL LESION OR MALIGNANCY. Performed at: WB Performed By: #### C BC #### [facility] [address] [place] [address] Dr. Henrietta Herr HPV Aptima Negative Normal Negative [facility] Comment on above: Result Comment: This nucleic acid amplification test detects fourteen high-risk HPV types (16,18,31,33,35,39,45,51,52,56,58,59,66,68) without differentiation. Performed at: =G Performed By: #### C BC #### [facility] [address] [address] [address] Henrietta Herr HPV Genotype Reflex Comment Normal [facility] Comment on above: Result Comment: Crit eria not met, HPV Genotype not performed. Performed at: WB Performed By: #### C BC #### [facility] [address] [place] [address] Dr. Henrietta Herr Methodology: Comment Normal [facility] Comment on above: Result Comment: This liquid based ThinPrep(R) pap test was screened with the use of an image guided system. Performed at: WB Performed By: #### C BC #### [facility] [address] [place] [address] Dr. Henrietta Herr Note: Comment Normal [facility] Comment on above: Result Comment: The Pap smear is a screening test designed to aid in the detection of premalignant and malignant conditions of the uterine cervix. It is not a diagnostic procedure and should not be used as the sole means of detecting cervical cancer. Both false-positive and false-negative reports do occur. . Performed at: WB Performed By: #### C BC #### [facility] [address] [place] [address] Dr. Henrietta Herr Performed by: Comment Normal [facility] Comment on above: Result Comment: Maria Elena Page, Electronic Components Assembler (ASCP) Performed at: WB Performed By: #### C BC #### [facility] [address] [place] [address] Dr. Henrietta Herr Specimen adequacy: Comment Normal [facility] Comment on above: Result Comment: Sati sfactory for evaluation. No endocervical cells are present. This is consistent with a history of hysterectomy. Performed at: WB Performed By: #### C BC #### [facility] [address] [place] [address] Dr. Henrietta Herr CBC AUTO DIFFon 09-17-2022 BASO # 0.0 103/ul Normal 0.0-0.1 [facility] Comment on above: Performed By: #### C BC #### [facility] [address] [place] [address] Dr. Henrietta Herr Basophils/100 WBC (Bld) 0.8 % Normal 0.2-2.0 [facility] Comment on above: Performed By: #### C BC #### [facility] [address] [place] [address] Dr. Henrietta Herr EO # 0.1 103/ul Normal 0.0-0.7 [facility] Comment on above: Performed By: #### C BC #### [facility] [address] [place] [address] Dr. Henrietta Herr Eosinophils/100 WBC (Bld) 1.2 % Normal 0.9-7.0 [facility] Comment on above: Performed By: #### C BC #### [facility] [address] [place] [address] Dr. Henrietta Herr Erythrocyte distribution width (RBC) [Ratio] 13.6 % Normal 11.0-15.0 [facility] Comment on above: Performed By: #### C BC #### [facility] [address] [place] [address] Dr. eHnrietta Herr Hematocrit (Bld) [Volume fraction] 41.2 % Normal 36.0-48.0 [facility] Comment on above: Performed By: #### C BC #### [facility] [address] [place] [address] Dr. Henrietta Herr Hemoglobin (Bld) [Mass/Vol] 13.2 g/dL Normal 12.0-16.0 [facility] Comment on above: Performed By: #### C BC #### [facility] [address] [place] [address] Dr. Henrietta Herr IG # 0.01 10e3/ul Normal 0.00-0.03 [facility] Comment on above: Performed By: #### C BC #### [facility] [address] [place] [address] Dr. Henrietta Herr IG % 0.2 % Normal 0.0-0.5 [facility] Comment on above: Performed By: #### C BC #### [facility] [address] [place] [address] Dr. Henrietta Herr LYMPH # 1.8 103/ul Normal 1.2-3.8 [facility] Comment on above: Performed By: #### C BC #### [facility] [address] [place] [address] Dr. Henrietta Herr Lymphocytes/100 WBC (Bld) 36.9 % Normal 20.5-60.0 [facility] Comment on above: Performed By: #### C BC #### [facility] [address] [place] [address] Dr. Henrietta Herr MANUAL DIFF REQ NO Normal [facility] Comment on above: Performed By: #### C BC #### [facility] [address] [place] [address] Dr. Henrietta Herr MCH (RBC) [Entitic mass] 28.9 pg Normal 26.7-34.0 [facility] Comment on above: Performed By: #### C BC #### [facility] [address] [place] [address] Dr. Henrietta Herr MCHC (RBC) [Mass/Vol] 32.0 g/dL Normal 29.9-35.2 [facility] Comment on above: Performed By: #### C BC #### [facility] [address] [place] [address] Dr. Henrietta Herr MCV (RBC) [Entitic vol] 90.2 fL Normal 81.0-99.0 [facility] Comment on above: Performed By: #### C BC #### [facility] [address] [place] [address] Dr. Henrietta Herr MONO # 0.3 103/ul Normal 0.3-0.8 [facility] Comment on above: Performed By: #### C BC #### [facility] [address] [place] [address] Dr. Henrietta Herr Monocytes/100 WBC (Bld) 6.6 % Normal 1.7-12.0 [facility] Comment on above: Performed By: #### C BC #### [facility] [address] [place] [address] Dr. Henrietta Herr NEUT # 2.7 103/ul Normal 1.4-6.5 [facility] Comment on above: Performed By: #### C BC #### [facility] [address] [place] [address] Dr. Henrietta Herr Neutrophils/100 WBC (Bld) 54.3 % Normal 43.0-75.0 [facility] Comment on above: Performed By: #### C BC #### [facility] [address] [place] [address] Dr. Henrietta Herr Platelet mean volume (Bld) [Entitic vol] 10.4 fL Normal 9.5-13.5 [facility] Comment on above: Performed By: #### C BC #### [facility] [address] [place] [address] Dr. Henrietta Herr PLT 207 103/ul Normal 150-450 [facility] Comment on above: Performed By: #### C BC #### [facility] [address] [place] [address] Dr. Henrietta Herr RBC 4.57 106/ul Normal 4.20-5.40 [facility] [facility] Comment on above: Performed By: #### C BC #### [facility] [address] [place] [address] Dr. Henrietta Herr WBC 5.0 103/ul Normal 4.0-11.0 [facility] Comment on above: Performed By: #### C BC #### [facility] [address] [place] [address] Dr. Henrietta Herr MONOon 09-17-2022 Monocytes (Bld) [#/Vol] Negative Normal NEGATIVE [facility] Comment on above: Performed By: #### C BC #### [facility] [address] [place] [address] Dr. Henrietta Herr PROF CHEM 8 (BAS METB)on Anion gap [Moles/Vol] 9.5 mmol/L Normal [facility] Comment on above: Performed By: #### T SH, BMP #### [facility] [address] [place] [address] Dr. Henrietta Herr Calcium [Mass/Vol] 8.4 mg/dL Critically low 8.5-10.1 Th [facility] Comment on above: Performed By: #### T SH, BMP #### [facility] [address] [place] [address] Dr. Henrietta Herr Chloride [Moles/Vol] 109 mmol/L Critically high 98-107 [facility] Comment on above: Performed By: #### T SH, BMP #### [facility] [address] [place] [address] Dr. Henrietta Herr CO2 [Moles/Vol] 24.8 mmol/L Normal 21.0-32.0 [facility] Comment on above: Performed By: #### T SH, BMP #### [facility] [address] [place] [address] Dr. Henrietta Herr Creatinine [Mass/Vol] 0.95 mg/dL Normal 0.55-1.02 [facility] Comment on above: Performed By: #### T SH, BMP #### [facility] [address] [place] [address] Dr. Henrietta Herr EGFR-AF YEMENI >60 Normal >=60 [facility] Comment on above: Performed By: #### T SH, BMP #### [facility] [address] [place] [address] Dr. Henrietta Herr EGFR-NON AF YEMENI >60 Normal >=60 [facility] Comment on above: Performed By: #### T SH, BMP #### [facility] [address] [place] [address] Dr. Henrietta Herr Glucose [Mass/Vol] 113 mg/dL Critically high 74-106 T [facility] Comment on above: Performed By: #### T SH, BMP #### [facility] [address] [place] [address] Dr. Henrietta Herr Potassium [Moles/Vol] 4.3 mmol/L Normal 3.5-5.1 [facility] Comment on above: Performed By: #### T SH, BMP #### [facility] [address] [place] [address] Dr. Henrietta Herr Sodium [Moles/Vol] 139 mmol/L Normal 136-145 [facility] Comment on above: Performed By: #### T SH, BMP #### [facility] [address] [place] [address] Dr. Henrietta Herr Urea nitrogen [Mass/Vol] 21.0 mg/dL Critically high 7.0-18.0 [facility] Comment on above: Performed By: #### T KANE, BMP #### [facility] [address] [place] [address] Dr. Henrietta Herr Urea nitrogen/Creatinin e [Mass ratio] 22.1 mg/mg Normal [facility] Comment on above: Performed By: #### T SH, BMP #### [facility] [address] [place] [address] Dr. Henrietta Herr TSHon 09-17-2022 TSH 1.038 uIU/mL Normal 0.358-3.740 [facility] Comment on above: Performed By: #### T KANE, BMP #### [facility] [address] [place] [address] Dr. [address] US ST HEAD_NECKon 09-13-2022 [...] at this time. Electronically authenticated by: EDUARDO Chen: 2022-09-13 09:15 Normal [facility] HEPATITIS C ANTIBODYon 04-27 Hep C Virus Ab 0.1 s/co ratio Normal 0.0-0.9 [facility] Comment on above: Result Comment: Nega tive: [...] Hepatitis C Virus (HCV) RNA, Diagnosis, ANDREA (005209) and Hepatitis C Virus (HCV) Antibody with reflex to Quantitative Real-time PCR (159736). Performed By: #### H CV #### [facility] [address] [place] [address] Dr. Henrietta Herr HIV 1 AND 2 WITH REFLEXon HIV Screen 4th Generation wRfx Non-Reactive Normal Non Reactive [facility] Comment on above: Result Comment: HIV Negative HIV-1/HIV-2 antibodies and HIV-1 p24 antigen were NOT detected. There is no laboratory evidence of HIV infection. Performed By: #### H IV12 #### [facility] [address] [place] [address] Dr. Henrietta Herr GLYCOHEMOGLOBIN A1Con 2021 ADA RECOMMENDATION SEE BELOW Normal [facility] Comment on above: Result Comment: ADA RECOMMENDED LIMIT 4.0 - 6.0 ADA THERAPEUTIC TARGET < 7.0 ACTION SUGGESTED > 7.0 Performed By: #### C BC #### [facility] [address] [place] [address] Dr. Henrietta Herr Glucose [Mass/Vol] 114 mg/dL Normal [facility] Comment on above: Performed By: #### C BC #### [facility] [address] [place] [address] Dr. Henrietta Herr HbA1c (Bld) [Mass fraction] 5.6 % Normal 4.5-6.2 [facility] Comment on above: Performed By: #### C BC #### [facility] [address] [address] [address] Henrietta Herr TSHon 04-26-2022 TSH 0.549 uIU/mL Normal 0.358-3.740 [facility] Comment on above: Performed By: #### T #### [facility] [address] [address] [address] Henrietta Herr XR forearm LT 2V*on 06-14-20 XR forearm LT 2V* [facility] [address] XRay Report Signed Patient: Roslyn Flores MR#: [id number] : 1970 Acct:[id number] Age/Sex: 51 / F ADM Date: 06/13/21 Loc: XDUC Room: Type: 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 - 2 views CLINICAL HISTORY: [...] May Pineda M.D.06/14/2021 7:46 AM Dictation Location: [place] [address] Transcribed By: [facility] 06/14/21745 Dictated By: May Pineda MD 06/14/21 0745 Signed By: 06/14/2146 [facility] CNOVSPon 08-05-2017 CNOVSP Visit (SP) Office ([facility]) -ROSLYN FLORES ([id number]) 1970 FDate Time Provider Ssjclanxwv23/2/17 9:00 AM SIM LLAMAS During your visit today, we recorded the following information about you: Pulse Respiration Blood pressure Weight 83/minute 18/minute 116/62 49.7 kg Height 1.575 mReferring Provider: MEDINA CAREY [[id number]]Allergies As of Date: 08/05/2017 Noted Allergy ReactionAMPICILLIN [...] encounter MELOXICAM 7.5 MG TABLET >> February Mario Alberto 08/05/2017 [...] Status:Closed by SIM LLAMAS MD on 08/06/17 [facility] CNOVSPon 07-16-2017 CNOVSP Visit (SP) Office ([facility]) -ROSLYN FLORES ([id number]) 1970 FDate Time Provider Department07/16/17 2:45 PM [...] also has a history of endometriosis leaving [facility] in the past. She is on estrogen [...] kg (110 lb 3.2 oz) BMI 20.16 kg/m7Xhhkogq appearance: well appearing, alert, in no acute [...] further testing based on results her symptomsAlfred JACQUI Cooperefclaribel Provider: MEDINA CAREY [[id number]]Allergies As of Date: 07/16/2017 Noted Allergy ReactionAMPICILLIN 04/28/2010 7 - SwellingPENICILLINS 08/16/2015 10 - AnaphylaxisDate Reviewed: 07/16/2017Reviewed by: Heather Toney - Fully AssessedReason for Visit: Consult [173] Cmt: ref for abnormal mammogramPrimary Visit Diagnosis:Abnormal mammogram [R92.8] Other Visit Diagnoses:Nipple discharge in female [N64.52] Family history of breast cancer [Z80.3]Order(s):PROLACTIN BLD [SQPROL] Order #: [id number] FUTURE TSH BLD [SQTSH] Order #: [id number] FUTURE CONSULT TO MEDICAL GENETICS [19991108] Order #: [id number]: 1Follow-up and Disposition History RecordedPrescriptions as of [...] by SIM LLAMAS MD on 07/16/17 Normal [facility] MRI Breast w/o and/or w/ Con [...] evident. FINAL REPORT Dictated: 07/16/2017 3:55 pm Searfin Meadows M.D. Signed (Electronic Signature): 07/16/2017 3:55 pm Signed by: Serafin Meadows M.D. Transcribed by: FENG Technologist: AFTechnical CommentsMultiHanceContrast amount in ml's: 10 Normal [facility] PROGRESSon 07-16-2017 PROGRESS HNO ID: [id number] thor: Sim Boswellervice: (none)Author Type: PhysicianType: Progress NotesFiled: 07/16/2017 3:41 [...] kg (110 lb 3.2 oz) BMI 20.16 kg/v9Rkreomd appearance: well appearing, alert, in no acute [...] results her symptomsAlfred Mariposa Llamas MD Normal [facility] Prolactinon 07-16-2017 Prolactin 9.5 ng/mL Normal 4.5-26.8 [facility] Comment on above: Performed By: #### T SH, PROL ####[facility], [place] [phone] TSHon 07-16-2017 Thyroid stimulating hormone (TSH) 0.320 uU/mL Low 0.400-5.500 [facility] Comment on above: Result Comment: If t he patient is , TSH reference range varies by gestational period:First Trimester 0.100-2.500 uU/mLSecond Trimester 0.200-3.000 uU/mLThird Trimester 0.300-3.000 uU/mLReferences: 1. Perry L, Anmol M, Desmond EK, et al. Management of Thyroid Dysfunction during and : An Endocrine Society Clinical Practice Guideline. J Clin Endocrinol Metab, 2012:97:4417-2654. 2. Asif CARR. Overview of thyroid disease in . UpToDate. 2016. Accessed on April 20, 2016. Performed By: #### T SH, PROL ####[facility], [place] [phone] Coding Summary.on 07-13-2017 Coding Summary. 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 Coded By: Janki, Steph B Date Saved: 07/13/2017 09:02 am [facility] Vital Signs Date Time Vital Sign Value Performing Clinician Facility 08-19-2024 10:27-0400 Body height 156.2 cm Seymour Rivas MD Work Phone: [facility] 08-19-2024 10:27-0400 Body mass index (BMI) [Ratio] 21.56 kg/m2 Seymour Rivas MD Work Phone: [facility] 08-19-2024 10:27-0400 Body temperature 97.5 [degF] Seymour Rivas MD Work Phone: [facility] 08-19-2024 10:27-0400 Body weight 52.62 kg Seymour Rivas MD Work Phone: [facility] 08-19-2024 10:27-0400 Diastolic blood pressure 76 mm[Hg] Seymour Rivas MD Work Phone: [facility] 08-19-2024 10:27-0400 Heart rate 93 /min Seymour Rivas MD Work Phone: [facility] 08-19-2024 10:27-0400 Respiratory rate 22 /min Seymour Rivas MD Work Phone: [facility] 08-19-2024 10:27-0400 SaO2% (BldA) [Mass fraction] 99 % Seymour Rivas MD Work Phone: [facility] 08-19-2024 10:27-0400 Systolic blood pressure 140 mm[Hg] Seymour Rivas MD Work Phone: [facility] 04-22-2022 15:35-0400 Body height 156.21 cm Alejandra Higgins Other [facility] 04-22-2022 15:35-0400 Body mass index (BMI) [Ratio] 18.4 kg/m2 Alejandra Higgins Other [facility] 04-22-2022 15:35-0400 Body temperature 99.7 [degF] Alejandra Higgins Other [facility] Other 04-22-2022 15:35-0400 Body weight 44.91 kg Alejandra Higgins Other [facility] Other 04-22-2022 15:35-0400 Diastolic blood pressure 81 mm[Hg] Alejandra Higgins Other [facility] Other 04-22-2022 15:35-0400 Respiratory rate 18 /min Alejandra Higgins Other [facility] Other 04-22-2022 15:35-0400 SaO2% (BldA) [Mass fraction] 98 % Alejnadra Higgins Other [facility] Other 04-22-2022 15:35-0400 Systolic blood pressure 143 mm[Hg] Alejandra Higgins Other [facility] Other Encounters Encounter Date Encounter Type Care Provider Facility Start: 09-22-2024 End: 09-22-2024 ambulatory MARK BURROUGHS [facility] Start: 09-15-2024 End: 09-15-2024 ambulatory MARK BURROUGHS Not Available Start: 09-15-2024 End: 09-15-2024 Postop follow up visit related to original px Mark Burroughs DO Work Phone: [facility] Comment on above: Chronic left shoulde r pain (Primary Dx); Ganglion of left shoulder Start: 09-10-2024 End: 09-10-2024 Bamboo flowsheet Mark Burroughs DO Work Phone: [facility] Start: 09-10-2024 End: 09-10-2024 Bamboo flowsheet Mark Burroughs DO Work Phone: [facility] Start: 09-10-2024 End: 09-10-2024 Office outpatient visit 25 minutes Mark Negrondleston DO Work Phone: [facility] Comment on above: Chronic left shoulde r pain (Primary Dx); Internal derangement of left shoulder; Tendinosis of left rotator cuff; Superior glenoid labrum lesion of left shoulder, initial encounter; Ganglion of left shoulder Start: 09-10-2024 End: 09-10-2024 ambulatory MARK Manolo HEIKE Not Available Start: 09-07-2024 End: 09-07-2024 ambulatory MARK Manolo HEIKE Not Available Start: 09-01-2024 End: 09-01-2024 Office outpatient new 30 minutes Mark Negrondleston DO Work Phone: [facility] Comment on above: Chronic left shoulde r pain (Primary Dx); Internal derangement of left shoulder; Nontraumatic tear of left rotator cuff, unspecified tear extent Start: 09-01-2024 End: 09-01-2024 ambulatory MARK Manolo HEIKE Not Available Start: 08-31-2024 End: 08-31-2024 Refill Seymour Rivas MD Work Phone: [facility] Comment on above: Lumbar spondylolysis Start: 08-19-2024 End: 08-19-2024 Bamboo flowsheet Seymour Rivas MD Work Phone: [facility] Start: 08-19-2024 End: 08-19-2024 Bamboo flowsheet Seymour Rivas MD Work Phone: [facility] Start: 08-19-2024 End: 08-19-2024 ambulatory SEYMOUR RIVAS Not Available Start: 08-19-2024 End: 08-19-2024 Office outpatient visit 25 minutes Seymour Rivas MD Work Phone: [facility] Comment on above: Chronic left shoulde r pain (Primary Dx); Internal derangement of left shoulder Start: 08-17-2024 End: 08-17-2024 Refill Seymour Rivas MD Work Phone: [facility] Comment on above: Lumbar spondylolysis Start: 06-29-2024 [...] 04-22-2022 End: 04-22-2022 ambulatory Alejandra Higgins Other [facility] Other Start: 04-22-2022 Office outpatient vi sit 15 minutes Alejandra Higgins [facility] Start: 08-05-2017 Ambulatory SIM LLAMAS [facility] Start: 07-16-2017 End: 07-17-2017 Ambulatory SIM LLAMAS [facility] Start: 07-12-2017 End: 07-13-2017 Patient encounter Medina Carey Facility[place] [place] Date Procedure Procedure Detail Performing Clinician Start: 12-27-2022 Colonoscopy Seymour laurent MD Work Phone: Start: 12-07-2022 Mammography Seymour laurent MD Work Phone: Plan of Treatment Date Care Activity Detail Author Start: 12-27-2032 Screening for malignant neoplasm of colon [facility] Start: 12-28-2024 End: 12-28-2024 Patient encounter procedure 12/28/2024 2:30 PM EST Office Visit [facility] [address] [place] [address] Seymour Rivas MD [address] [place] [address] [facility] Start: 10-09-2024 End: 10-09-2024 Patient encounter procedure 10/09/2024 9:15 AM EST Office Visit [facility] [address] [place] [address] Jr. Galo Cordova, DO [address] [place] [address] [facility] Start: 09-15-2024 End: 09-15-2025 MR Shoulder - left Arthrogram MR shoulder arthrogram left Imaging Routine Ganglion of left shoulder Expected: 09/15/2024 (Approximate), Expires: 09/15/2025 [facility] Work Phone: Comment on above: Expected: 09/15/2024 (Approximate), Expires: 09/15/2025 Start: 09-15-2024 End: 09-15-2024 Patient encounter procedure 09/15/2024 9:15 AM EST Office Visit [facility] [address] [place] [phone] Mark Burroughs, DO [address] [facility] [address] [place] [address] [facility] Start: 09-10-2024 End: 09-10-2024 Patient encounter procedure 09/10/2024 9:30 AM EST Office Visit [facility] [address] [place] [phone] Mark Burroughs, DO [address] [place] [address] Chronic left shoulder pain (Primary Dx); Internal derangement of left shoulder; Tendinosis of left rotator cuff; Superior glenoid labrum lesion of left shoulder, initial encounter; Ganglion of left shoulder [facility] Comment on above: Chronic left shoulde r pain (Primary Dx); Internal derangement of left shoulder; Tendinosis of left rotator cuff; Superior glenoid labrum lesion of left shoulder, initial encounter; Ganglion of left shoulder Start: 09-01-2024 End: 09-01-2024 Patient encounter procedure 09/01/2024 1:00 PM EDT Office Visit [facility] [address] [place] [address] Mark Burroughs DO [address] [place] [address] [facility] Start: 08-19-2024 End: 08-19-2025 XR Shoulder - left 2 Views XR shoulder 2+ views left Imaging Routine Chronic left shoulder pain Expected: 08/19/2024, Expires: 08/19/2025 [facility] Work Phone: Comment on above: Expected: 08/19/2024 , Expires: 08/19/2025 Start: 08-19-2024 End: 08-19-2024 Patient encounter procedure 08/19/2024 10:15 AM EDT Office Visit [facility] [address] [place] [address] Seymour Rivas MD [address] [place] [address] [facility] Start: 07-05-2024 Influenza vaccination Influenza Vacc ine (#1) [facility] Start: 12-07-2023 Screening for malignant neoplasm of breast Mammogram [facility] Start: 1999 Screening for malignant neoplasm of cervix HPV/Cotest [facility] Start: 1990 Screening for malignant neoplasm of cervix Pap Smear [facility] Start: 1970 Screening for malignant neoplasm of colon [facility] Immunizations Immunization Date Immunization Notes Care Provider Fa cili 10-03-2023 influenza virus vacc ine, unspecified formulation Seymour Rivas MD Work Phone: [facility] Payers Date Payer Category Payer Blue [facility] BCBS [id number] 2022 Unknown [id number] 2017 Unknown 1970 Unknown [id number] 2.16840.1.821096.3.579. 2.593 1970 Unknown [id number] 2.16840.1.645033.3.579. 2.59 1970 Unknown [id number] 2.16840.1.014448.3.579. 2.593 1970 Unknown [id number] 2.16.840.1.034547.3.579. 2.593 1970 Unknown [id number] 2.16.840.1.160580.3.579. 2.593 1970 Unknown [id number] 2.16.840.1.436112.3.579. 2.1259 1970 Unknown [id number] 2.16.840.1.876518.3.579. 2.1259 1970 Unknown [id number] 2.16.840.1.424521.3.579. 2.1259 1970 Unknown [id number] 2.16.840.1.922383.3.579. 2.1259 1970 Unknown [id number] 2.16.840.1.734074.3.579. 2.9 1970 Unknown [id number] 2.16.840.1.251255.3.579. 2.1259 1970 Unknown [id number] 2.16.840.1.347132.3.579. 2.9 1970 Unknown [id number] 2.16.840.1.946893.3.579. 2.1259 1970 Unknown [id number] 2.16.840.1.030766.3.579. 2.6 1970 Unknown [id number] 2.16.840.1.370114.3.579. 2.1286 1960 [facility] [id number] 2.16.840.1.941693.19 Social History Date Type Detail Facility Unknown if ever smoked [facility] Start: 06-29-2024 Sex Assigned At N [facility] Start: 12-18-2023 Tobacco smoking stat [facility] Never smoked tobacco [facility] Start: 06-29-2024 History of Social function [facility] Start: 1970 Sex assigned at Not on file N [facility] Clinical Notes 04-22-2022 to 09-15-2024 Mark Burroughs, - 09/15/2024 9:15 AM Jaci Burroughs, - 09/10/2024 9:30 AM Jaci Burroughs, DO - 09/01/2024 1:00 PM Carolyn Rivas MD - 08/19/2024 10:57 AM EDT Note Date & Type Note Facility 09-15-2024 History of Presen t illness Narrative Patient ID: Roslyn Flores is a 54 y.o. female. Procedures Ultrasound, Limited, [place]. [id number] The patient was positioned supine. Ultrasound was used to evaluate the anatomy of the left shoulder and to evaluate for the presence of a cyst. The biceps tendon was identified both on transverse and longitudinal axis. Within the substance of the tendon in the bicipital groove there were areas of hypoechoic and hyperechoic return. The tendon was of normal size and contained in the groove. The findings in the body of the tendon are suggestive of intrasubstance degeneration The subscapularis muscle was identified along with its attachment real-time imaging was performed with the patient going through rotational range of motion the tendon was grossly intact. The anterior portion of the labrum could just barely be visualized. I was unable to identify a fluid collection around the labrum or subscapularis our anterior capsule. This was suspected to be present based on findings noted at the time of a previous MRI but could not be confirmed at ultrasound. The rotator cuff was intact at the footprint and was visualized on longitudinal and transverse axis. I was unable to identify a fluid collection for aspiration purposes. At this point I have recommended to the patient that we proceed with a MR with and without contrast to better assess the labrum and to re-evaluate for the presence of fluid mass. I did advise the patient that I am leaving my current practice to practice in another state but my colleagues are willing to see her if she has any problems or concerns or if she desires a referral to another equipment specialist we would be happy to make referral, she states she would like to continue her care here. documented in this encounter [facility] 09-10-2024 History of Presen t illness Narrative Images from the original note were not included. HISTORY OF PRESENT ILLNESS: Roslyn Flores is an 54 y.o. @ female. Left shoulder pain and recent MRI of the left shoulder LT shoulder. Here for MRI results [facility] 09/07. She continues to have increasing pain. LT shoulder pain for February 2024 and getting worse. Denies injury Saw Dr Rivas on 08/19 XR ordered (done 08/24/24 at [facility]), PT ordered at [facility] Constant pain in posterior left shoulder, trap, around scapula and into her neck. Admits headaches. Increased pain with pushing heavy things at work. Limited and painful ROM. 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 Throbbing pain. The move she uses her arm the worse the pain gets. Tingling in RF and LF after shoulder movement. Tries to raise arm with other hand but won't go move. + wake at HS. Admits weakness. Using heat and massage and not helping. Taking percocet for back pain per Dr Rivas (did not help shoulder) Taking daypro prn. Prior treatment: Dr Carolina 08/19/24, PT ordered at [facility], XR done at [facility] 08/24/24, percocet for LBP, MRI 09/07/24 [facility] Patient did advise me that she is currently unemployed. She indicated she elected to resign from her job due to scheduling issues. MEDICATION: Current Outpatient Medications on File Prior to Visit Medication Sig Dispense Refill alendronate (Fosamax) 70 MG tablet Take 1 tablet by mouth every 7 (seven) days (Patient not taking: Reported on 08/19/2024) fluconazole (Diflucan) 150 MG tablet TAKE 1 TABLET BY MOUTH once, may repeat in 3 (THREE) days if SYMPTOMS persist 2 tablet 2 montelukast (Singulair) 10 MG tablet Take 1 tablet (10 mg) by mouth at bedtime 30 tablet 11 Mucinex D Max Strength 120-1200 MG tablet sustained-release 12 hour TAKE 1 TABLET BY MOUTH TWICE DAILY 60 tablet 2 oxaprozin (Daypro) 600 MG tablet TAKE 1 TABLET BY MOUTH TWICE DAILY NEEDED 60 tablet 3 oxyCODONE-acetaminophen (Percocet) 5-325 MG tablet Take 1 tablet by mouth 4 (four) times a day as needed for severe pain for up to 15 days 60 tablet 0 Premarin 1.25 MG tablet TAKE 1 TABLET BY MOUTH DAILY 30 tablet 5 SUMAtriptan (Imitrex) 100 MG tablet TAKE 1 TABLET BY MOUTH IN THE MORNING at the onset OF headache, may repeat in 2 (TWO) hours if needed 27 tablet 3 tiZANidine (Zanaflex) 4 MG tablet TAKE 2 TABLETS BY MOUTH AT BEDTIME 60 tablet 3 topiramate (Topamax) 100 MG tablet TAKE 1 TABLET BY MOUTH FOUR TIMES DAILY 120 tablet 5 No current facility-administered medications on file prior to visit. MEDICAL HISTORY: Past Medical History: Diagnosis Date Abnormal thyroid stimulating hormone (TSH) level Actinic keratoses At low risk for fall Benign essential hypertension (CMS/HCC) Bilateral leg edema Chronic bilateral low back pain with bilateral sciatica DDD (degenerative disc disease), cervical Encounter for long-term (current) use of medications GERD without esophagitis Greater trochanteric bursitis, right Hip pain, chronic, left Migraine without aura and with status migrainosus, not intractable (CMS/HCC) Muscle spasms of both lower extremities Opioid abuse (CMS/HCC) Osteoporosis, postmenopausal (CMS/HCC) Palpitation Post-menopausal Right hip pain Rosacea Seasonal allergic rhinitis due to pollen Stress reaction ALLERGIES: Allergies Allergen Reactions Penicillin G Shortness of breath Hives, throat swelling Ampicillin Hives and Swelling Swelling on tongue, throat, eyes Metronidazole Rash VITALS: Visit Vitals Smoking Status Never PHYSICAL EXAM: Ortho Exam LT SHOULDER Max abduction 40 active and passive IR to buttocks Flexion 50 Tender anterior in vacinity of the cyst IMAGING: I reviewed an MRI of the left shoulder dated September 07 2024. There is bright signal near the insertion of the rotator cuff just proximal to the foot print. There are no definitive tears. There is no impingement from the acromioclavicular joint. There is no fatty infiltration. There is a subchondral cyst at the greater tuberosity. There is however a large fluid collection anterior to the labrum and glenoid which appears to communicate with the glenohumeral joint. Findings are very suspicious for a labral cyst and labral tear. Axial image fourteen the cyst measures 28 mm in medial to lateral width and 18 mm to anterior posterior width ASSESSMENT: ICD-10-CM 1. Chronic left shoulder pain M25.512 G89.29 2. Internal derangement of left shoulder M24.812 3. Tendinosis of left rotator cuff M67.814 4. Superior glenoid labrum lesion of left shoulder, initial encounter S43.432A 5. Ganglion of left shoulder M67.412 PLAN: I reviewed MRI findings with the patient and discussed treatment options, answered questions. I recommend aspiration of the cyst under ultrasound guidance. I will see her back in [place] next week for this. Dr. Burroughs obtained history and examined the patient, I am acting as scribe for Dr. Burroughs/, RN I did advise the patient that I am leaving my current practice to practice in another state but my colleagues are willing to see her if she has any problems or concerns or if she desires a referral to another equipment specialist we would be happy to make referral, she states she would like to continue her care here. Vanita Burroughs D.O. documented in this encounter [facility] 09-01-2024 History of Presen t illness Narrative Images from the original note were not included. HISTORY OF PRESENT ILLNESS: Roslyn Flores is an 54 y.o. @ female. Chief complaint LT shoulder pain New patient: LT shoulder. Dr Rivas referral. XR [facility] 08/19/24 LT shoulder pain for February 2024 and getting worse. Denies injury Saw Dr Rivas on 08/19 XR ordered (done 08/24/24 at [facility]), PT ordered at [facility] Constant pain in posterior left shoulder, trap, around scapula and into her neck. Admits headaches. Increased pain with pushing heavy things at work. Limited and painful ROM. 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 Throbbing pain. The move she uses her arm the worse the pain gets. Tingling in RF and LF after shoulder movement. Tries to raise arm with other hand but won't go move. + wake at HS. Admits weakness. Using heat and massage and not helping. Taking percocet for back pain per Dr Rivas (did not help shoulder) Taking daypro prn. Prior treatment: Dr Carolina 08/19/24, PT ordered at [facility], XR done at [facility] 08/24/24, percocet for LBP Patient did advise me that she is currently unemployed. She indicated she elected to resign from her job due to scheduling issues. I reviewed notes from the patient's primary care provider dated August 19, 2024. The patient was noted to have chronic left shoulder pain with decreased range of motion. The patient had use heat and massage without benefit MEDICATION: Current Outpatient Medications on File Prior to Visit Medication Sig Dispense Refill alendronate (Fosamax) 70 MG tablet Take 1 tablet by mouth every 7 (seven) days (Patient not taking: Reported on 08/19/2024) fluconazole (Diflucan) 150 MG tablet TAKE 1 TABLET BY MOUTH once, may repeat in 3 (THREE) days if SYMPTOMS persist 2 tablet 2 montelukast (Singulair) 10 MG tablet Take 1 tablet (10 mg) by mouth at bedtime 30 tablet 11 Mucinex D Max Strength 120-1200 MG tablet sustained-release 12 hour TAKE 1 TABLET BY MOUTH TWICE DAILY 60 tablet 2 oxaprozin (Daypro) 600 MG tablet TAKE 1 TABLET BY MOUTH TWICE DAILY NEEDED 60 tablet 3 oxyCODONE-acetaminophen (Percocet) 5-325 MG tablet Take 1 tablet by mouth 4 (four) times a day as needed for severe pain for up to 15 days 60 tablet 0 Premarin 1.25 MG tablet TAKE 1 TABLET BY MOUTH DAILY 30 tablet 5 SUMAtriptan (Imitrex) 100 MG tablet TAKE 1 TABLET BY MOUTH IN THE MORNING at the onset OF headache, may repeat in 2 (TWO) hours if needed 27 tablet 3 tiZANidine (Zanaflex) 4 MG tablet TAKE 2 TABLETS BY MOUTH AT BEDTIME 60 tablet 3 topiramate (Topamax) 100 MG tablet TAKE 1 TABLET BY MOUTH FOUR TIMES DAILY 120 tablet 5 [DISCONTINUED] oxyCODONE-acetaminophen (Percocet) 5-325 MG tablet Take 1 tablet by mouth 4 (four) times a day as needed for severe pain for up to 15 days 60 tablet 0 No current facility-administered medications on file prior to visit. MEDICAL HISTORY: Past Medical History: Diagnosis Date Abnormal thyroid stimulating hormone (TSH) level Actinic keratoses At low risk for fall Benign essential hypertension (CMS/HCC) Bilateral leg edema Chronic bilateral low back pain with bilateral sciatica DDD (degenerative disc disease), cervical Encounter for long-term (current) use of medications GERD without esophagitis Greater trochanteric bursitis, right Hip pain, chronic, left Migraine without aura and with status migrainosus, not intractable (CMS/HCC) Muscle spasms of both lower extremities Opioid abuse (CMS/HCC) Osteoporosis, postmenopausal (CMS/HCC) Palpitation Post-menopausal Right hip pain Rosacea Seasonal allergic rhinitis due to pollen Stress reaction ALLERGIES: Allergies Allergen Reactions Penicillin G Shortness of breath Hives, throat swelling Ampicillin Hives and Swelling Swelling on tongue, throat, eyes Metronidazole Rash VITALS: Visit Vitals Smoking Status Never PHYSICAL EXAM: Ortho Exam Examination left shoulder reveals tenderness diffusely around the shoulder but mostly over the lateral edge of the acromion. The patient has 60 degrees of active abduction and 60 degrees of flexion. With the assistance from the other hand she can get it up to 90 degrees but then has a positive drop test and marked pain thereafter. Passively I am able to abduct her and move her further. The patient does have a positive drop test. She also has crepitus both audible and palpable with range of motion. A very weak 3/5 abduction strength test. Empty can and crossover is positive. Patient was too painful to perform a SLAP test. The patient was also noted to have tenderness at the acromioclavicular joint. IMAGING: I reviewed x-rays of the left shoulder from the [facility]. There is slight narrowing of the acromioclavicular joint with mild sclerosis. There are no fractures detected. ASSESSMENT: ICD-10-CM 1. Chronic left shoulder pain M25.512 Ambulatory referral to Orthopaedic Surgery G89.29 2. Internal derangement of left shoulder M24.812 Ambulatory referral to Orthopaedic Surgery 3. Nontraumatic tear of left rotator cuff, unspecified tear extent M75.102 PLAN: I have recommended an MRI of the left shoulder. We will see her back when the MRI is complete. I explained the diagnosis and reviewed treatment options. I answered all of the patient's questions. Vanita Burroughs D.O. documented in this encounter [facility] 08-31-2024 Telephone encount er Note [facility] 08-31-2024 Miscellaneous Notes Formattin g of this note might be different from the original. documented in this encounter [facility] 08-19-2024 History of Presen t illness Narrative Associated Problem(s): Internal derangement of left shoulder Pain for weeks and now decreased ROM. Possibly developing adhesive capsulitis. Check x-ray and start PT. Refer to ortho. Associated Problem(s): Chronic left shoulder pain Pain for weeks and now decreased ROM. Possibly developing adhesive capsulitis. Check x-ray and start PT. Refer to ortho. Images from the original note were not included. Subjective Patient ID: Roslyn Flores is a 54 y.o. female who presents for Shoulder Pain (Left shoulder). C/o left shoulder pain for months and getting worse. Severe pain in left shoulder and top shoulder. Pain down to upper arm. Starting to have decreased ROM and not able to move arm. Not able to forward flex or abduct past 90 degrees. 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 Shoulder feels very stiff and like it's stuck. Tries to raise arm with other hand but won't go up further. Using heat and mild relief. Using massage and not helping. Review of Systems Respiratory: Negative for cough, shortness of breath and wheezing. Cardiovascular: Negative for chest pain and palpitations. Gastrointestinal: Negative for abdominal pain, diarrhea, nausea and vomiting. Genitourinary: Negative for dysuria. Objective Physical Exam Constitutional: General: She is not in acute distress. Appearance: Normal appearance. HENT: Head: Normocephalic. Right Ear: Tympanic membrane normal. Left Ear: Tympanic membrane normal. Eyes: Extraocular Movements: Extraocular movements intact. Pupils: Pupils are equal, round, and reactive to light. Cardiovascular: Rate and Rhythm: Normal rate and regular rhythm. Heart sounds: No murmur heard. No friction rub. No gallop. Pulmonary: Effort: Pulmonary effort is normal. Breath sounds: Normal breath sounds. No wheezing, rhonchi or rales. Abdominal: General: Bowel sounds are normal. There is no distension. Palpations: Abdomen is soft. Tenderness: There is no abdominal tenderness. There is no guarding or rebound. Musculoskeletal: Cervical back: Neck supple. Right lower leg: No edema. Left lower leg: No edema. Comments: Left shoulder: Forward flexion and abduction limited to 90 degrees both actively and passively. Strength rotator cuff 4/5 Neurological: Mental Status: She is alert. Assessment/Plan Problem List Items Addressed This Visit Chronic left shoulder pain - Primary Pain for weeks and now decreased ROM. Possibly developing adhesive capsulitis. Check x-ray and start PT. Refer to ortho. Relevant Orders XR shoulder 2+ views left Ambulatory referral to Orthopaedic Surgery Internal derangement of left shoulder Pain for weeks and now decreased ROM. Possibly developing adhesive capsulitis. Check x-ray and start PT. Refer to ortho. Relevant Orders Ambulatory referral to Orthopaedic Surgery documented in this encounter [facility] 04-22-2022 Evaluation note Encounter Date Diagnosis Assessment [...] take with food to prevent stomach upset. Dynamic Signal Other Evaluation note* Diagnosis Arthralgia of multiple joints- Primary Pain [...] spondylosis without myelopathy [facility] Diagnosis Arthralgia of multiple joints- Primary Pain [...] (CMS/HCC) Seasonal allergic rhinitis due to pollen Chronic left shoulder pain- Primary Pain in joint, shoulder region Internal derangement of left shoulder [facility] Diagnosis Arthralgia of multiple joints- Primary Pain [...] (CMS/HCC) Seasonal allergic rhinitis due to pollen Chronic left shoulder pain- Primary Pain in joint, shoulder region Internal derangement of left shoulder Lumbar spondylolysis Lumbosacral spondylosis without myelopathy [facility] Diagnosis Arthralgia of multiple joints- Primary Pain [...] (CMS/HCC) Seasonal allergic rhinitis due to pollen Chronic left shoulder pain- Primary Pain in joint, shoulder region Internal derangement of left shoulder Chronic left shoulder pain- Primary Pain in joint, shoulder region Internal derangement of left shoulder Nontraumatic tear of left rotator cuff, unspecified tear extent documented in this encounter [facility]* Diagnosis Arthralgia of multiple joints- Primary Pain [...] (CMS/HCC) Seasonal allergic rhinitis due to pollen Chronic left shoulder pain- Primary Pain in joint, shoulder region Internal derangement of left shoulder Chronic left shoulder pain- Primary Pain in joint, shoulder region Internal derangement of left shoulder Tendinosis of left rotator cuff Superior glenoid labrum lesion of left shoulder, initial encounter Ganglion of left shoulder [facility] Diagnosis Arthralgia of multiple joints- Primary Pain [...] (CMS/HCC) Seasonal allergic rhinitis due to pollen Chronic left shoulder pain- Primary Pain in joint, shoulder region Internal derangement of left shoulder Chronic left shoulder pain- Primary Pain in joint, shoulder region Ganglion of left shoulder documented in this encounter [facility] HealthcareHistory general Narrative - Reported* Type Description Date Medical History migraine headache Medical History fibromyalgia Medical History thorasic outlet Medical History htn Surgical History knee arthroscopy Surgical History cholecystectomy Surgical History hysterectomy Surgical History breast lump removed Surgical History bladder suspension, unspecified Surgical History spinal injection oct 2021 Surgical History RFA burn Hospitalization History see above Dynamic Signal Other Summary Purpose Family History No Family [...] section and content) DATE CREATED AUTHOR 04/30/2018 [facility] DATE CREATED AUTHOR AUTHOR'S ORGANIZ ATION 06/16/2018 [facility] DATE CREATED AUTHOR AUTHOR'S ORGANIZ ATION 11/27/2021 [facility] DATE CREATED AUTHOR AUTHOR'S ORGANIZ ATION 12/09/2022 [facility] DATE CREATED AUTHOR AUTHOR'S ORGANIZ ATION 09/17/2024 [facility] EPIC DATE CREATED AUTHOR AUTHOR'S ORGANIZ ATION 09/24/2024 [facility] REASON FOR VISIT (unrecogniz ed section and content) Reason Onset Date Comments Med Refill 08/17/2024 Reason Comments Shoulder Pain Left shoulder Reason Onset Date Comments Med Refill 08/31/2024 Reason Comments Pain Specialty Diagnoses / Procedures Referred By Devon t Referred To Contact Orthopaedic Surgery Diagnoses Chronic left shoulder pain Internal derangement of left shoulder Seymour Rivas MD [address] [place] [address] Phone: tel: fax: Mark Burroughs, DO [address] [facility] [address] [place] [address] Phone: tel: fax: Referral ID Status Reason Start Date Expiration Date V isits Requested Visits Authorized [id number] Closed Specialty Services Required 08/19/2024 02/15/2025 1 1 Reason Comments Follow-up Reason Comments Follow-up Care Teams (unrecognized sec tion and content) [employer]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 Relationship Specialty Start Date End Date Seymour Rivas MD [address] [place] [phone] PCP - [facility] 11/04/23 Seymour Rivas MD [address] [place] [phone] PCP - General Family Medicine 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 Relationship Specialty Start Date End Date Seymour Rivas MD [address] [place] [phone] PCP - [facility] 11/04/23 Seymour Rivas MD [address] [place] [phone] PCP - General Family Medicine 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 Relationship Specialty Start Date End Date Seymour Rivas MD [address] [place] [phone] PCP - [facility] 11/04/23 Seymour Rivas MD [address] [place] [phone] PCP - General [facility] Medicine 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 [facility] [employer] [facility]. provides no warranty or guarantee of the accuracy or completeness of information in this document.
--- NOTE | 2024-09-27 15:56 | ED.UPPEXIN1 ---
HPI HPI - Extremity Injury (Upper) General Chief Complaint: Extremity Injury, Upper Stated Complaint: UE INJURY Time Seen by Provider: 09/27/24 15:41 Source: patient Mode of arrival: walk-in Limitations: no limitations History of Present Illness HPI narrative: 54-year-old female presents to the emergency department for left shoulder pain. She injured it 2 months ago and has seen an orthopedist several times for it. She has had 2 MRIs and family reports that it shows to tears. She has been taking Percocet for chronic back issues and gets a 15-day supply every 2 weeks from her PCP. She is already on a muscle relaxant. The pain continues and hurts more when she moves it and she does not have a sling and came here mainly to get a sling. Related Data Home Medications ?Medication ?Instructions ?Recorded ?Confirmed conjugated estrogens 1.25 mg 1.25 mg PO DAILY 09/27/24 09/27/24 tablet (Premarin) montelukast 10 mg tablet 10 mg PO BEDTIME 09/27/24 09/27/24 oxaprozin 600 mg tablet 600 mg PO BID 09/27/24 09/27/24 oxycodone-acetaminophen 5 mg-325 1 tab PO Q6H PRN pain 09/27/24 09/27/24 mg tablet tizanidine 4 mg tablet 8 mg PO BEDTIME 09/27/24 09/27/24 Previous Rx's ?Medication ?Instructions ?Recorded etodolac 400 mg tablet 400 mg PO Q6H PRN pain #30 tabs 09/27/24 Allergies Allergy/AdvReac Type Severity Reaction Status Date / Time Penicillins AdvReac Mild Hives Verified 09/27/24 15:46 Opioid HPI Opioid Management Most Recent Pain and Opioid Data: No Data to Display Review of Systems ROS Narrative A ten point review of systems is negative except as noted above. Exam Narrative Exam Narrative: Nurses note and vital signs reviewed and patient is not hypoxic. General: The patient appears uncomfortable and is laying on the examination cart. Skin: Warm, dry, no pallor noted. There is no rash noted. Head: Normocephalic, atraumatic Eye: Normal conjunctiva, no drainage Ears, Nose, Mouth, and Throat: oral mucosa is moist. Nares patent. Cardiovascular: Regular Rate and Rhythm Respiratory: Patient is in no distress, no accessory muscle use, lungs are clear to auscultation, no wheezing, rales or rhonchi Back: non-tender GI: Nontender Musculoskeletal: Her left shoulder is examined. No erythema or swelling. She is quite reluctant to move it. Her elbow is flexed and her arm is abducted. Radial pulse 2+. Neurological: A&O, normal speech Psychiatric: Cooperative Constitutional Vital Signs, click to edit/add: Last Vital Signs Temp 98.1 F 09/27/24 15:38 Pulse 107 H 09/27/24 15:38 Resp 18 09/27/24 15:38 BP 181/105 H 09/27/24 15:38 Pulse Ox 98 09/27/24 15:38 O2 Del Method Room Air 09/27/24 15:38 Course Vital Signs Vital signs: Vital Signs Temperature 98.1 F 09/27/24 15:38 Pulse Rate 107 H 09/27/24 15:38 Respiratory Rate 18 09/27/24 15:38 Blood Pressure 181/105 H 09/27/24 15:38 Pulse Oximetry 98 09/27/24 15:38 Oxygen Delivery Method Room Air 09/27/24 15:38 Temperature 98.1 F 09/27/24 15:38 Pulse Rate 107 H 09/27/24 15:38 Respiratory Rate 18 09/27/24 15:38 Blood Pressure 181/105 H 09/27/24 15:38 Pulse Oximetry 98 09/27/24 15:38 Oxygen Delivery Method Room Air 09/27/24 15:38 MDM - Extremity Injury (Upper) MDM Narrative Medical decision making narrative: She is already on Percocet and tizanidine and already has an orthopedist appointment and has had MRIs. She was given IM Toradol and provided a prescription for etodolac. Sling applied, application checked by me and found to be appropriate, she is neurovascular intact. We discussed range of motion exercises for this type of injury with using the sling and the importance to prevent frozen shoulder. Treatment diagnosis and follow-up were discussed with the patient and her . Differential Diagnosis Differential diagnosis: Likely other (Rotator cuff injury, rotator cuff tear, shoulder strain, adhesive capsulitis) Discharge Plan Discharge Chief Complaint: Extremity Injury, Upper Clinical Impression: Acute pain of left shoulder Patient Disposition: Home, Self-Care Time of Disposition Decision: 15:54 Condition: Good Mode of Transportation: Private Vehicle Prescriptions / Home Meds: New etodolac 400 mg tablet 400 mg PO Q6H PRN (Reason: pain) Qty: 30 0RF Rx Instructions: do not exceed 3 doses per 24 hrs No Action oxycodone-acetaminophen 5-325 mg tablet 1 tab PO Q6H PRN (Reason: pain) tizanidine 4 mg tablet 8 mg PO BEDTIME oxaprozin 600 mg tablet 600 mg PO BID montelukast 10 mg tablet 10 mg PO BEDTIME Premarin 1.25 mg tablet 1.25 mg PO DAILY Print Language: Tajik Instructions: Rotator Cuff Injury (ED), Shoulder Pain (ED) Additional Instructions: Discontinue oxaprozin while on etodolac. See your orthopedist at your appointment which is already scheduled. Referrals: Seymour Batres MD [Primary Care Provider] - 1 week
[2024-09-27] MEDS: KETOROLAC TROMETHAMINE 60 MG/2 ML VIAL IM (16:16)
[2024-09-27 16:40] VITALS: BP 158/101; PULSE 85; O2SAT 96
== END 2024-09-27 16:44 | disposition home or self-care (01) ==
PROVIDERS: Emergency Provider Emergency Medicine; PCP Family Medicine
DX: M25.512 Pain in left shoulder (principal)
CPT/HCPCS: 96372; 99284; J1885

== ENCOUNTER 2025-01-04 12:30 | Outpatient (OUT) | payer BC, SELFPAY ==
--- OUTSIDE RECORDS SUMMARY | 2025-01-04 12:42 | XMS_ITS | CCD ---
Author Organization [facility]ini[facility] Care Team Providers Care Black Pickler Name Role Phone LLAMAS, SIM P Unavailable Unavailable NILL, MEDINA R Unavailable Unavailable LLAMAS, SIM P Unavailable Unavailable NILL, MEDINA R Unavailable Unavailable Nill, Medina R Unavailable Unavailable Nill, Medina R Unavailable Unavailable Nill, Medina R Unavailable Unavailable NADERESEYMOUR Decker~[phone] UNKNOWN Unavailable Unavailable Alejandra Higgins Unavailable EVELYN, DR SEYMOUR French Primary Care Unavailable MALIWSHAIKH Lis TORRES Attending Unavailable FAWWASkip, SHAIKH Lis Admitting Unavailable [...] Unavailable NADERER, DR SEYMOUR French Consulting Unavailable Evelyn EPPERSON, Seymour Unavailable Seymour Rivas MD Primary Care Provider MARK BURROUGHS Referring Unavailable SEYMOUR RIVAS Primary Care Unavailable MARK BURROUGHS Referring Unavailable EVELYN, SEYMOUR Primary Care Unavailable MONSE LUNA Attending Unavailable NADERER, SEYMOUR Attending Unavailable NADERER, SEYMOUR Attending Unavailable EVELYN, SEYMOUR Attending Unavailable EVELYN, SEYMOUR Attending Unavailable EVELYN, SEYMOUR Attending Unavailable MARK BURROUGHS Attending Unavailable SEYMOUR RIVAS Referring Unavailable MARK BURROUGHS Referring Unavailable MARK BURROUGHS Attending Unavailable HERBERT, MARK French Attending Unavailable JR. VIKAS, JAIME Solares Attending Unavaila ruth RIVAS, SEYMOUR Attending Unavailable Allergies Allergy Classification Reported Allergen(s) Allergy Type Date of Onset Reaction(s) Facility (20 sources) ampicillin; Translations: [AMPICILLIN] Drug Allergy 0 anaphylaxis, Hives, Swelling [facility] Repository (2 sources) Penicillins; Translations: [PENICILLINS] Propensity to adverse reactions to drug (disorder) 0 AOF [facility] Repository (1 source) Amoxicillin Drug Allergy anaphylaxis [facility] Other (20 sources) metroNIDAZOLE; Translations: [METRONIDAZOLE] Drug Allergy 1 Rash [facility] (20 sources) Penicillin G Drug Allergy 4 Shortness of breath [facility] Medications Current Medications Medication Drug Class(es) Dates Sig (Normalized) Sig (Original) Acetaminophen (1 source) Tylenol Active alendronic acid 70 mg oral tablet (20 sources) Bisphosphonate End: 11-13-2024 alendronate (Fosamax) 70 MG tablet Take 1 tablet by mouth every 7 (seven) days 11/13/2024 Discontinued ciprofloxacin 3 mg/ml ophthalmic solution (3 sources) Quinolone Antimicrobial Start: 06-25-2024 End: 07-02-2024 take 2 drop(s) into the eye(s) every four hours ciprofloxacin (Ciloxan) 0.3 % ophthalmic solution Indications: Acute bacterial conjunctivitis, unspecified laterality Administer 2 drops into both eyes every 4 (four) hours for 7 days 10 mL 06/25/2024 07/02/2024 Active Comirnaty 30 MCG/0.3ML suspension prefilled syringe (5 sources) Start: 09-14-2024 End: 12-29-2024 Comirnaty 30 MCG/0.3ML suspension prefilled syringe 09/14/2024 12/29/2024 Discontinued Start: 09-14-2024 Comirnaty 30 M CG/0.3ML suspension prefilled syringe 09/14/2024 Active diphenhydrAMINE (1 source) Histamine-1 Receptor Antagonist Benadryl Active estrogens, conjugated (long term) 1.25 mg oral tablet (20 sources) Estrogen Start: take 1 tablet by mouth once daily Premarin 1.25 MG tablet Indications: Post menopausal syndrome TAKE 1 TABLET BY MOUTH DAILY 30 tablet 5 08/24/2024 Active Start: 03-04-2024 take 1 tablet by mabel th once daily estrogens, conjugated, (Premarin) 1.25 MG tablet Indications: Post menopausal syndrome Take 1 tablet (1.25 mg) by mouth Daily 30 tablet 5 03/04/2024 Active Premarin Active etodolac 400 mg oral tablet (18 sources) Nonsteroidal Anti-inflammatory Drug Start: 12-29-2024 take 1 tablet by mouth in the morning etodolac (Lodine) 400 MG tablet Indications: Lumbar spondylolysis Take 1 tablet (400 mg) by mouth in the morning and 1 tablet (400 mg) before bedtime. 60 tablet 5 12/29/2024 Active Start: 12-29-2024 take 1 tablet by mabel th in the morning etodolac (Lodine) 400 MG tablet Indications: Lumbar spondylolysis Take 1 tablet (400 mg) by mouth in the morning and 1 tablet (400 mg) before bedtime. 60 tablet 5 12/29/2024 Active Start: 09-27-2024 End: 12-29-2024 etodolac (Lodine) 400 MG tab let 09/27/2024 12/29/2024 Discontinued (Reorder) Flublok 0.5 ML solution prefilled syringe (5 sources) Start: 09-14-2024 End: 12-29-2024 Flublok 0.5 ML solution pref illed syringe 09/14/2024 12/29/2024 Discontinued Start: 09-14-2024 Flublok 0.5 ML solution prefilled syringe 09/14/2024 Active fluconazole 150 mg oral tablet (20 sources) Azole Antifungal Start: 09-17-2024 fluconazole ( Diflucan) 150 MG tablet Take 1 tablet (150 mg) by mouth 1 (one) time for 1 dose; may take 2nd dose in 3 days if needed 09/17/2024 Active Start: 03-23-2024 End: 09-16-2024 fluconazole (Diflucan) 150 M G tablet Indications: Candidiasis, unspecified TAKE 1 TABLET BY MOUTH once, may repeat in 3 (THREE) days if SYMPTOMS persist 2 tablet 2 03/23/2024 09/16/2024 Discontinued (Reorder) furosemide 40 mg oral tablet (3 sources) Loop Diuretic Start: 12-29-2024 take 1 tablet by mouth once daily as needed for edema furosemide (Lasix) 40 MG tablet Indications: Bilateral leg edema Take 1 tablet (40 mg) by mouth Daily as needed (Edema) 30 tablet 5 12/29/2024 Active Start: 12-29-2024 take 1 tablet by mabel th once daily as needed for edema furosemide (Lasix) 40 MG tablet Indications: Bilateral leg edema Take 1 tablet (40 mg) by mouth Daily as needed (Edema) 30 tablet 5 12/29/2024 Active 12 hr guaiFENesin 1200 mg / pseudoephedrine hydrochloride 120 mg extended release oral tablet (20 sources) alpha-Adrenergic Agonist Start: 12-02-2024 take 1 tablet by mouth once in the morning, then take 1 tablet by mouth every twelve hours at bedtime pseudoephedrine-guaiFENesin ER (Mucinex D Max Strength) 120-1200 MG tablet sustained-release 12 hour Indications: Allergic rhinitis due to pollen Take 1 tablet by mouth in the morning and 1 tablet before bedtime. 60 tablet 2 12/02/2024 Active Start: 01-14-2024 End: 12-02-2024 take 120-1200 mg by mouth every twelve hours Mucinex D Max Strength 120-1200 MG tablet sustained-release 12 hour Indications: Allergic rhinitis due to pollen TAKE 1 TABLET BY MOUTH TWICE DAILY 60 tablet 2 01/14/2024 12/02/2024 Discontinued (Reorder) hydroCHLOROthiazide (1 source) Thiazide Diuretic hydroCHLOROthi azide Active ivermectin 10 mg/ml topical cream (3 sources) Antiparasitic, Pediculicide Start: 12-29-19 Ivermectin 1 % cream Indications: Rosacea Apply 1 Application topically Daily 45 g 3 12/29/2024 Active Start: 12-29-2024 Ivermectin 1 % cream Indications: Rosacea Apply 1 Application topically Daily 45 g 3 12/29/2024 Active losartan potassium 50 mg oral tablet (13 sources) Angiotensin 2 Receptor Marli Start: 12-29-2024 take 1 tablet by mouth once daily losartan (Cozaar) 50 MG tablet Indications: Benign essential hypertension (CMS/HCC) Take 1 tablet (50 mg) by mouth Daily 30 tablet 5 12/29/2024 Active Start: 12-29-2024 take 1 tablet by mabel th once daily losartan (Cozaar) 50 MG tablet Indications: Benign essential hypertension (CMS/HCC) Take 1 tablet (50 mg) by mouth Daily 30 tablet 5 12/29/2024 Active Start: 11-13-2024 End: 12-29-2024 take 1 tablet by mouth once daily losartan (Cozaar) 25 MG tablet Indications: Benign essential hypertension (CMS/HCC) Take 1 tablet (25 mg) by mouth Daily 30 tablet 5 11/13/2024 12/29/2024 Discontinued (Reorder) methylPREDNISolone 4 mg oral tablet (2 sources) Corticosteroid Start: 10-26-2021 methylPREDNISolone 4 MG as directed Orally Once a day for 6 days Apr, Active montelukast 10 mg oral tablet (20 sources) Leukotriene Receptor Antagonist Start: 12-09-2023 End: 12-08-2024 take 1 tablet by mouth at bedtime montelukast (Singulair) 10 MG tablet Indications: Upper respiratory tract infection, unspecified type Take 1 tablet (10 mg) by mouth at bedtime 30 tablet 11 12/09/2023 Active Singulair Active Multiple Vitamin (multivitamin) tablet (16 sources) take 1 tablet by mouth once daily Multiple Vitamin (multivitamin) tablet Take 1 tablet by mouth Daily Active oxaprozin 600 mg oral tablet (20 sources) Nonsteroidal Anti-inflammatory Drug Start: End: take 1 tablet by mouth twice daily as needed oxaprozin (Daypro) 600 MG tablet Indications: Pain in right hip TAKE 1 TABLET BY MOUTH TWICE DAILY NEEDED 60 tablet 3 06/22/2024 12/29/2024 Discontinued silver sulfADIAZINE 10 mg/ml topical cream (1 source) Sulfonamide Antibacterial Start: Silvadene 1 % 1 application to affected area Externally Twice daily Apr, Active SUMAtriptan 100 mg oral tablet (20 sources) Serotonin-1b and Serotonin-1d Receptor Agonist Start: take 1 tablet by mouth every two hours in the morning SUMAtriptan (Imitrex) 100 MG tablet Indications: Migraine without aura, not intractable, with status migrainosus (CMS/HCC) TAKE 1 TABLET BY MOUTH IN THE MORNING at the onset OF headache, may repeat in 2 (TWO) hours if needed 27 tablet 3 08/05/2024 Active Start: 04-22-2024 SUMAtriptan (I mitrex) 100 MG tablet Indications: Migraine without aura, not intractable, with status migrainosus (CMS/HCC) TAKE 1 TABLET BY MOUTH at the onset OF headache, may repeat in 2 (TWO) (TWO) hours one time 27 tablet 3 04/22/2024 Active Imitrex Not-Taki ng tiZANidine 4 mg oral tablet (20 sources) Central alpha-2 Adrenergic Agonist Start: 12-21-2024 take 2 tablets by mouth at bedtime tiZANidine (Zanaflex) 4 MG tablet Indications: Migraine without aura, not intractable, with status migrainosus (CMS/HCC) TAKE 2 TABLETS BY MOUTH AT BEDTIME 60 tablet 3 12/21/2024 Active Start: 07-31-2024 take 2 tablets by mo uth at bedtime tiZANidine (Zanaflex) 4 MG tablet Indications: Migraine without aura, not intractable, with status migrainosus (CMS/HCC) TAKE 2 TABLETS BY MOUTH AT BEDTIME 60 tablet 3 07/31/2024 Active Start: 03-09-2024 take 2 tablets by mo uth at bedtime tiZANidine (Zanaflex) 4 MG tablet Indications: Migraine without aura, not intractable, with status migrainosus (CMS/HCC) TAKE 2 TABLETS BY MOUTH AT BEDTIME 60 tablet 3 03/09/2024 Active Zanaflex Active topiramate 100 mg oral tablet (20 sources) Start: 01-06-2024 End: 06-22-2024 take 1 tablet by mouth four times daily topiramate (Topamax) 100 MG tablet Indications: Migraine without aura, not intractable, with status migrainosus (CMS/HCC) TAKE 1 TABLET BY MOUTH FOUR TIMES DAILY 120 tablet 5 06/22/2024 Active Topamax Active Completed/Discontinued Medications Medication Drug Class(es) Dates Sig (Normalized) Sig (Original) acetaminophen 325 mg / oxyCODONE hydrochloride 5 mg oral tablet (20 sources) Opioid Agonist Start: 06-02-2024 End: 01-15-2025 take 1 tablet by mouth four times daily as needed for pain oxyCODONE-acetamin ophen (Percocet) 5-325 MG tablet Indications: Lumbar spondylolysis Take 1 tablet by mouth 4 (four) times a day as needed for severe pain for up to 15 days 60 tablet 12/15/2024 12/30/2024 Discontinued (Reorder) dexamethasone 1 mg/ml / tobramycin 3 mg/ml ophthalmic suspension (1 source) Aminoglycoside Antibacterial, Corticosteroid Start: 03-04-2022 take 1 drop(s) into the eye(s) three times daily Tobramycin-Dexamet hasone 0.3-0.1 % 1 drop into affected eye Ophthalmic Three times a day for 5 days March, Not-Taking Tobramycin-Dexameth asone (1 source) Tobramycin-Dexam et hasone Not-Taking Problems Active Problems Problem Classification Problem Date Documented Date Episodic/Chronic Esophageal disorders (20 sources) Gastroesophageal reflux disease without esophagitis; Translations: [Gastro-esophageal reflux disease without esophagitis] Onset: 01-15-2024 01-15-2024 Chronic Essential hypertension (20 sources) Benign essential hypertension; Translations: [Essential (primary) hypertension] Onset: 01-15-2024 01-15-2024 Chronic Headache; including migraine (20 sources) Migraine without aura, not refractory ; Translations: [Migraine without aura, not intractable, with status migrainosus] Onset: 01-15-2024 01-15-2024 Chronic Immunizations and screening for infectious disease (3 sources) Encounter for screening for human papillomavirus (HPV); Translations: [Encounter for screening for other viral diseases] Onset: 05-01-2022 Episodic Lymphadenitis (4 sources) Localized enlarged lymph nodes; Translations: [LOCALIZED ENLARGED LYMPH NODES] Onset: 09-12-2022 Episodic Menopausal disorders (20 sources) Disorder associated with menstruation AND/OR menopause; Translations: [Menopausal and female climacteric states] Onset: 01-15-2024 01-15-2024 Chronic Nonmalignant breast conditions (5 sources) Unspecified lump in unspecified breast; Translations: [Unspecified lump in left breast, subareolar] Onset: 12-07-2022 Episodic Osteoporosis (20 sources) Age-related osteoporosis without current pathological fracture; Translations: [Senile osteoporosis] Onset: 12-09-2022 01-15-2024 Chronic Other acquired deformities (20 sources) Spondylolysis; Translations: [Spondylolysis, lumbar region] Onset: 01-15-2024 08-17-2024 Episodic Other connective tissue disease (2 sources) Nontraumatic [...] [Ganglion, left shoulder] Onset: 09-22-2024 Episodic Other connective tissue disease (1 source) Impingement syndrome of left shoulder region; Translations: [Impingement syndrome of left shoulder] 12-11-2024 Episodic Other inflammatory condition of skin (5 sources) Rosacea; Translations: [Rosacea, unspecified] Onset: 12-29-2024 12-29-2024 Chronic Other non-traumatic joint disorders (20 sources) Derangement of left shoulder joint; Translations: [Other specific joint derangements of left shoulder, not elsewhere classified] Onset: 08-19-2024 08-19-2024 Chronic Other non-traumatic joint disorders (1 source) Pain in left shoulder; Translations: [Pain in left shoulder] Onset: 09-22-2024 Episodic Other upper respiratory disease (20 sources) Allergic rhinitis due to pollen; Translations: [Allergic rhinitis due to pollen] Onset: 01-15-2024 01-15-2024 Chronic Residual codes; unclassified (1 source) Asymptomatic menopausal state; Translations: [ASYMPTOMATIC MENOPAUSAL STATE] Onset: 12-09-2022 Episodic Residual codes; unclassified (1 source) Family history of malignant neoplasm of breast; Translations: [FAMILY HX MALIG NEOPLASM OF BREAST] Onset: 12-09-2022 Episodic Spondylosis; intervertebral disc disorders; other back problems (20 sources) Cervical spondylosis; Translations: [Spondylosis without myelopathy [...] Resolved: 04-22-2022 Episodic Other connective tissue disease (20 sources) Pain in left lower limb; Translations: [Pain in left leg] Onset: 01-15-2024 Resolved: 03-04-2024 03-04-2024 Episodic Other non-traumatic joint disorders (20 sources) Multiple joint pain; Translations: [Pain in unspecified joint] Onset: 01-15-2024 01-15-2024 Episodic Other non-traumatic joint disorders (20 sources) Hip pain; Translations: [Pain in left hip] Onset: 01-15-2024 Resolved: 03-04-2024 03-04-2024 Episodic Other non-traumatic joint disorders (20 sources) Chronic pain of left upper limb; Translations: [Pain in left shoulder] Onset: 08-19-2024 08-19-2024 Episodic Other non-traumatic joint disorders (1 source) Pain in right hip joint; Translations: [Pain in right hip] 06-22-2024 Episodic Other nutritional; endocrine; and metabolic disorders (4 sources) Abnormal weight loss; Translations: [ABNORMAL WEIGHT LOSS] Onset: 04-26-2022 Episodic Other screening for suspected conditions (not mental disorders or infectious disease) (20 sources) Encounter for screening for malignant neoplasm of cervix; Translations: [Encounter for screening for diabetes mellitus] Onset: 05-01-2022 Episodic Residual codes; unclassified (20 sources) Bilateral lower limb edema; Translations: [Localized edema] Onset: 01-15-2024 01-15-2024 Episodic Results Test Name Value Interpretation Reference Range Facility CBC (INCLUDES DIFF/PLT)on Basophils (Bld) [#/Vol] 0.04 10*3/uL Normal 0-200 [facility] Comment on above: Performed By: #### 1 0231, [id number] #### [facility] [place] [address] [address] Supervisor: Jameel Dasilva MD Basophils/100 WBC (Bld) 0.6 % Normal [facility] Comment on above: Performed By: #### 1 0231, [id number] #### [facility] [place] [address] [facility] Supervisor: Jameel Dasilva MD Eosinophils (Bld) [#/Vol] 0.073 10*3/uL Normal 15-500 [facility] Comment on above: Performed By: #### 1 0231, 6399 #### [facility] [place] [address] [facility] Supervisor: Jameel Dasilva MD Eosinophils/100 WBC (Bld) 1.1 % Normal [facility] Comment on above: Performed By: #### 1 023, 6399 #### [facility] [place] [address] [employer] Supervisor: Jameel Dasilva MD Erythrocyte distribution width (RBC) [Ratio] 12.6 % Normal 11.0-15.0 [facility] Comment on above: Performed By: #### 1 230, 6399 #### [facility] [place] [address] [facility] Supervisor: Jameel Dasilva MD Hematocrit (Bld) [Volume fraction] 46.3 % High 35.0-45.0 [facility] Comment on above: Performed By: #### 1 0231, 6399 #### [facility] [place] [address] [address] Supervisor: Jameel Dasilva MD Hemoglobin (Bld) [Mass/Vol] 14.9 g/dL Normal 11.7-15.5 [facility] Comment on above: Performed By: #### 1 0231, 6399 #### [facility] [place] [address] [address] Supervisor: Jameel Dasilva MD Lymphocytes (Bld) [#/Vol] 2.944 10*3/uL Normal 850-3900 [facility] Comment on above: Performed By: #### 1 0231, 6399 #### [facility] [place] [address] [employer] Supervisor: Jameel Dasilva MD Lymphocytes/100 WBC (Bld) 44.6 % Normal [facility] Comment on above: Performed By: #### 1 230, 6399 #### [facility] [place] [address] [employer] Supervisor: Jameel Dasilva MD MCH (RBC) [Entitic mass] 30.4 pg Normal 27.0-33.0 [facility] Comment on above: Performed By: #### 1 230, 6399 #### [facility] [place] [address] [employer] Supervisor: Jameel Dasilva MD MCHC (RBC) [Mass/Vol] 32.2 g/dL Normal 32.0-36.0 [facility] Comment on above: Result Comment: For adults, a slight decrease in the calculated MCHC value (in the range of 30 to 32 g/dL) is most likely not clinically significant; however, it should be interpreted with caution in correlation with other red cell parameters and the patient's clinical condition. Performed By: #### 1 230, 6399 #### [facility] [place] [address] [address] Supervisor: Jameel Dasilva MD MCV (RBC) [Entitic vol] 94.5 fL Normal 80.0-100.0 [facility] Comment on above: Performed By: #### 1 023, 6399 #### [facility] [place] [address] [address] Supervisor: Jameel Dasilva MD Monocytes (Bld) [#/Vol] 0.363 10*3/uL Normal 200-950 [facility] Comment on above: Performed By: #### 1 0231, 6399 #### [facility] of [address], [address] [place] [address] [employer]ruding Department Supervisor: Jameel Dasilva MD Monocytes/100 WBC (Bld) 5.5 % Normal [facility] Comment on above: Performed By: #### 1 0231, 6399 #### [facility] of [address], [address] [place] [address] [employer]uding Department Supervisor: Jameel Dasilva MD Neutrophils (Bld) [#/Vol] 3.181 10*3/uL Normal 9946-3904 [facility] Comment on above: Performed By: #### 1 0231, 6399 #### [facility] of [address], [address] [place] [address] [employer]uding Department Supervisor: Jameel Dasilva MD Neutrophils/100 WBC (Bld) 48.2 % Normal [facility] Comment on above: Performed By: #### 1 0231, 6399 #### [facility] of [address], [address] [place] [address] [employer] Department Supervisor: Jameel Dasilva MD Platelet mean volume (Bld) [Entitic vol] 10.6 fL Normal 7.5-12.5 [facility] Comment on above: Performed By: #### 1 0231, 6399 #### [facility] of [address], [address] [place] [address] [employer] Department Supervisor: Jameel Dasilva MD Platelets (Bld) [#/Vol] 285 10*3/uL Normal 140-400 [facility] Comment on above: Performed By: #### 1 0231, 6399 #### [facility] of [address], [address] [place] [address] [employer] Department Supervisor: Jameel Dasilva MD RBC (Bld) [#/Vol] 4.90 10*6/uL Normal 3.80-5.10 [facility] Comment on above: Performed By: #### 1 0231, 6399 #### [facility] of [address], [address] [place] [address] [employer] Department Supervisor: Jameel Dasilva MD WBC (Bld) [#/Vol] 6.6 10*3/uL Normal 3.8-10.8 [facility] Comment on above: Performed By: #### 1 0231, 6399 #### [facility] [address], [address] [place] [address] [employer] Department Supervisor: Jameel Dasilva MD COMPREHENSIVE METABOLIC PANE [facility] 12-17-2024 Albumin [Mass/Vol] 4.8 g/dL Normal 3.6-5.1 [facility] Comment on above: Order Comment: FASTI NG:YES FASTING: YES Performed By: #### 1 0231, 6399 #### [facility] [place] [address] [address] Supervisor: Jameel Dasilva MD Albumin/Globulin [Mass ratio] 1.8 {ratio} Normal 1.0-2.5 [facility] Comment on above: Order Comment: FASTI NG:YES FASTING: YES Performed By: #### 1 0231, 6399 #### [facility] [address], [address] [place] [address] [employer] Department Supervisor: Jameel Dasilva MD ALP [Catalytic activity/Vol] 62 U/L Normal 37-153 [facility] Comment on above: Order Comment: FASTI NG:YES FASTING: YES Performed By: #### 1 0231, 6399 #### [facility] [place] [address] [address] Supervisor: Jameel Dasilva MD ALT [Catalytic activity/Vol] 13 U/L Normal 6-29 [facility] Comment on above: Order Comment: FASTI NG:YES FASTING: YES Performed By: #### 1 0231, 6399 #### [facility] [place] [address] [address] Supervisor: Jameel Dasilva MD AST [Catalytic activity/Vol] 19 U/L Normal 10-35 [facility] Comment on above: Order Comment: FASTI NG:YES FASTING: YES Performed By: #### 1 0231, 6399 #### [facility] [address], [address] [place] [address] [employer] Department Supervisor: Jameel Dasilva MD Bilirubin [Mass/Vol] 0.4 mg/dL Normal 0.2-1.2 [facility] Comment on above: Order Comment: FASTI NG:YES FASTING: YES Performed By: #### 1 0231, 6399 #### [facility] [address], [address] [place] [address] [employer] Department Supervisor: Jameel Dasilva MD BUN/CREATININE RATIO SEE NOTE: Normal 6- [facility] Comment on above: Order Comment: FASTI NG:YES FASTING: YES Result Comment: Not Reported: BUN and Creatinine are within reference range. Performed By: #### 1 0231, 6399 #### [facility] [address], [address] [place] [address] [employer] Department Supervisor: Jameel Dasilva MD Calcium [Mass/Vol] 9.8 mg/dL Normal 8.6-10.4 [facility] Comment on above: Order Comment: FASTI NG:YES FASTING: YES Performed By: #### 1 0231, 6399 #### [facility] [place] [address] [employer] Supervisor: Jameel Dasilva MD Chloride [Moles/Vol] 105 mmol/L Normal 98-110 [facility] Comment on above: Order Comment: FASTI NG:YES FASTING: YES Performed By: #### 1 0231, 6399 #### [facility] [address], [address] [place] [address] [employer] Department Supervisor: Jameel Dasilva MD CO2 [Moles/Vol] 24 mmol/L Normal 20-32 [facility] Comment on above: Order Comment: FASTI NG:YES FASTING: YES Performed By: #### 1 0231, 6399 #### [facility] [address], [address] [place] [address] [employer] Department Supervisor: Jameel Dasilva MD Creatinine [Mass/Vol] 1.00 mg/dL Normal 0.50-1.03 [facility] Comment on above: Order Comment: FASTI NG:YES FASTING: YES Performed By: #### 1 0231, 6399 #### [facility] [address], [address] [place] [address] [employer] Department Supervisor: Jameel Dasilva MD GFR/1.73 sq M.predicted among non-blacks MDRD (S/P/Bld) [Vol rate/Area] 67 mL/min/{1.73_m2} Normal > OR = 60 [facility] Comment on above: Order Comment: FASTI NG:YES FASTING: YES Performed By: #### 1 0231, 6399 #### [facility] [address], [address] [place] [address] Extruding Department Supervisor: Jameel Dasilva MD Globulin (S) [Mass/Vol] 2.6 g/dL Normal 1.9-3.7 [facility] Comment on above: Order Comment: FASTI NG:YES FASTING: YES Performed By: #### 1 0231, 6399 #### [facility] [address], [address] [place] [address] Extruding Department Supervisor: Jameel Dasilva MD Glucose [Mass/Vol] 86 mg/dL Normal 65-99 [facility] Comment on above: Order Comment: FASTI NG:YES FASTING: YES Result Comment: Fasting reference interval Performed By: #### 1 0231, 6399 #### [facility] [place] [address] Extruding Department Supervisor: Jameel Dasilva MD Potassium [Moles/Vol] 4.3 mmol/L Normal 3.5-5.3 [facility] Comment on above: Order Comment: FASTI NG:YES FASTING: YES Performed By: #### 1 0231, 6399 #### [facility] [place] [address] Extruding Department Supervisor: Jameel Dasilva MD Protein [Mass/Vol] 7.4 g/dL Normal 6.1-8.1 [facility] Comment on above: Order Comment: FASTI NG:YES FASTING: YES Performed By: #### 1 0231, 6399 #### [facility] [address], [address] [address] Extruding Department Supervisor: Jameel Dasilva MD Sodium [Moles/Vol] 138 mmol/L Normal 135-146 [facility] Comment on above: Order Comment: FASTI NG:YES FASTING: YES Performed By: #### 1 0231, 6399 #### [facility] [address], [address] [address] Extruding Department Supervisor: Jameel Dasilva MD Urea nitrogen [Mass/Vol] 24 mg/dL Normal 7-25 [facility] Comment on above: Order Comment: FASTI NG:YES FASTING: YES Performed By: #### 1 0231, 6399 #### [facility] [address], [address] [place] [address] Extruding Department Supervisor: Jameel Dasilva MD FL MR/CT ARTHROGRAM SHOULDER LT W GUIDon [...] minutes minutes. Reference Air Kerma: 15.228 mGy FLYER REPAIRER: Bj Roman MD IMPRESSION: 1. Technically successful left shoulder arthrogram as detailed above. 2. Left shoulder MR arthrogram dictated separately. Finalized by Bj Roman MD on 09/22/2024 10:32 AM Normal [facility] MR ARTHROGRAM SHOULDER LT W CONTon 09-22-2024 [...] Vera MD on 09/22/2024 10:14 AM Normal [facility] MR SHOULDER LEFT WO IV CONTR Darryl [...] shoulder w/o contrast. To be done at [facility] MG MAMM DIAGNOSTIC 3D CARMEN CA Don 12-07-2022 MG MAMM DIAGNOSTIC 3D CARMEN CAD Patient: ROSLYN FLORES Exam Date: 12/07/2022 : 1970 Gender:F Ordering : DR COLLINS JARRETT . Admission #: [id number] Family : Order #: [id number] CLICK HERE TO VIEW EXAM RADIOLOGY REPORT [...] breast cancer at age 59. LOCATION: [facility] BREAST COMPOSITION: Extremely dense, which lowers [...] M.D. on 12/07/2022 at 15:02 Normal [facility] US BREAST CARMEN LIMITEDon 02-0 US BREAST CARMEN LIMITED Patient: ROSLYN FLORES Exam Date: 12/07/2022 : 1970 Gender:F Ordering : DR COLLINS JARRETT . Admission #: [id number] Family : Order #: [id number] CLICK HERE TO VIEW EXAM RADIOLOGY REPORT [...] breast cancer at age 59. LOCATION: [facility] BREAST COMPOSITION: Extremely dense, which lowers [...] Trevino M.D. on 12/07/2022 at 15:02 Normal [facility] XR DEXA BONE DENSITYon 12-07 XR DEXA [...] High Fracture Risk Electronically authenticated by: EDUARDO RON Date: 2022-12-07 14:46 Normal [facility] PAP ACOG PANEL 2: 30 to 65on 11-28-2022 . . Normal [facility] Comment on above: Result Comment: Perf ormed at: WB Performed By: #### C BC #### [facility] [address] [address] [address] Henrietta Herr Age Gdln ACOG Testing 30-65 Normal [facility] Comment on above: Performed By: #### C BC #### [facility] [address] [address] [address] Henrietta Herr DIAGNOSIS: Comment Normal [facility] Comment on above: Result Comment: NEGA TIVE FOR INTRAEPITHELIAL LESION OR MALIGNANCY. Performed at: WB Performed By: #### C BC #### [facility] [address] [place] [address] Dr. Henrietta Herr HPV Aptima Negative Normal Negative [facility] Comment on above: Result Comment: This nucleic acid amplification test detects fourteen high-risk HPV types (16,18,31,33,35,39,45,51,52,56,58,59,66,68) without differentiation. Performed at: =G Performed By: #### C BC #### [facility] [address] [address] [address] Henrietta Herr HPV Genotype Reflex Comment [facility] Comment on above: Result Comment: Crit eria not met, HPV Genotype not performed. Performed at: WB Performed By: #### C BC #### [facility] [address] [address] [address] Henrietta Herr Methodology: Comment Normal [facility] Comment on above: Result Comment: This liquid based ThinPrep(R) pap test was screened with the use of an image guided system. Performed at: WB Performed By: #### C BC #### [facility] [address] [place] [address] Dr. Henrietta Herr Note: Comment Normal [facility] Comment on above: Result Comment: The Pap smear is a screening test designed to aid in the detection of premalignant and malignant conditions of the uterine cervix. It is not a diagnostic procedure and should not be used as the sole means of detecting cervical cancer. Both false-positive and false-negative reports do occur. . Performed at: WB Performed By: #### C BC #### [facility] [address] [place] [address] Dr. Henrietta Herr Performed by: Comment Normal [facility] Comment on above: Result Comment: Maria Elena Page, Rn Enterostomal (ASCP) Performed at: WB Performed By: #### C BC #### [facility] [address] [place] [address] Dr. Henrietta Herr Specimen adequacy: Comment Normal [facility] Comment on above: Result Comment: Sati sfactory for evaluation. No endocervical cells are present. This is consistent with a history of hysterectomy. Performed at: WB Performed By: #### C BC #### [facility] [address] [place] [address] Dr. Henrietta Herr CBC AUTO DIFFon 09-17-2022 BASO # 0.0 103/ul Normal 0.0-0.1 [facility] Comment on above: Performed By: #### C BC #### [facility] [address] [place] [address] Dr. Henrietta Herr Basophils/100 WBC (Bld) 0.8 % Normal 0.2-2.0 [facility] Comment on above: Performed By: #### C BC #### [facility] [address] [place] [address] Dr. Henrietta Herr EO # 0.1 103/ul Normal 0.0-0.7 [facility] Comment on above: Performed By: #### C BC #### [facility] [address] [place] [address] Dr. Henrietta Herr Eosinophils/100 WBC (Bld) 1.2 % Normal 0.9-7.0 [facility] Comment on above: Performed By: #### C BC #### [facility] [address] [place] [address] Dr. Henrietta Herr Erythrocyte distribution width (RBC) [Ratio] 13.6 % Normal 11.0-15.0 [facility] Comment on above: Performed By: #### C BC #### [facility] [address] [place] [address] Dr. Henrietta Herr Hematocrit (Bld) [Volume fraction] 41.2 % Normal 36.0-48.0 [facility] Comment on above: Performed By: #### C BC #### [facility] [address] [place] [address] Dr. Henrietta Herr Hemoglobin (Bld) [Mass/Vol] 13.2 g/dL Normal 12.0-16.0 [facility] Comment on above: Performed By: #### C BC #### [facility] [address] [place] [address] Dr. Henrietta Herr IG # 0.01 10e3/ul Normal 0.00-0.03 [facility] Comment on above: Performed By: #### C BC #### [facility] [address] [place] [address] Dr. Henrietta Herr IG % 0.2 % Normal 0.0-0.5 [facility] Comment on above: Performed By: #### C BC #### [facility] [address] [place] [address] Dr. Henrietta Herr LYMPH # 1.8 103/ul Normal 1.2-3.8 [facility] Comment on above: Performed By: #### C BC #### [facility] [address] [place] [address] Dr. Henrietta Herr Lymphocytes/100 WBC (Bld) 36.9 % Normal 20.5-60.0 [facility] Comment on above: Performed By: #### C BC #### [facility] [address] [place] [address] Dr. Henrietta Herr MANUAL DIFF REQ NO Normal [facility] Comment on above: Performed By: #### C BC #### [facility] [address] [place] [address] Dr. Henrietta Herr MCH (RBC) [Entitic mass] 28.9 pg Normal 26.7-34.0 [facility] Comment on above: Performed By: #### C BC #### [facility] [address] [address] [address] Henrietta Herr MCHC (RBC) [Mass/Vol] 32.0 g/dL Normal 29.9-35.2 [facility] Comment on above: Performed By: #### C BC #### [facility] [address] [place] [address] Dr. Henrietta Herr MCV (RBC) [Entitic vol] 90.2 fL Normal 81.0-99.0 [facility] Comment on above: Performed By: #### C BC #### [facility] [address] [place] [address] Dr. Henrietta Herr MONO # 0.3 103/ul Normal 0.3-0.8 [facility] Comment on above: Performed By: #### C BC #### [facility] [address] [place] [address] Dr. Henrietta Herr Monocytes/100 WBC (Bld) 6.6 % Normal 1.7-12.0 [facility] Comment on above: Performed By: #### C BC #### [facility] [address] [place] [address] Dr. Henrietta Herr NEUT # 2.7 103/ul Normal 1.4-6.5 [facility] Comment on above: Performed By: #### C BC #### [facility] [address] [place] [address] Dr. Henrietta Herr Neutrophils/100 WBC (Bld) 54.3 % Normal 43.0-75.0 [facility] Comment on above: Performed By: #### C BC #### [facility] [address] [place] [address] Dr. Henrietta Herr Platelet mean volume (Bld) [Entitic vol] 10.4 fL Normal 9.5-13.5 [facility] Comment on above: Performed By: #### C BC #### [facility] [address] [place] [address] Dr. Henrietta Herr PLT 207 103/ul Normal 150-450 [facility] Comment on above: Performed By: #### C BC #### [facility] [address] [place] [address] Dr. Henrietta Herr RBC 4.57 106/ul Normal 4.20-5.40 [facility] Comment on above: Performed By: #### C BC #### [facility] [address] [place] [address] Dr. Henrietta Herr WBC 5.0 103/ul Normal 4.0-11.0 [facility] Comment on above: Performed By: #### C BC #### [facility] [address] [place] [address] Dr. Henrietta Herr MONOon 09-17-2022 Monocytes (Bld) [#/Vol] Negative Normal NEGATIVE [facility] Comment on above: Performed By: #### C BC #### [facility] [address] [place] [address] Dr. Henrietta Herr PROF CHEM 8 (BAS METB)on Anion gap [Moles/Vol] 9.5 mmol/L Normal [facility] Comment on above: Performed By: #### T SH, BMP #### [facility] [address] [place] [address] Dr. Henrietta Herr Calcium [Mass/Vol] 8.4 mg/dL Critically low 8.5-10.1 [facility] Comment on above: Performed By: #### T SH, BMP #### [facility] [address] [place] [address] Dr. Henrietta Herr Chloride [Moles/Vol] 109 mmol/L Critically high 98-107 [facility] Comment on above: Performed By: #### T SH, BMP #### [facility] [address] [place] [address] Dr. Henrietta Herr CO2 [Moles/Vol] 24.8 mmol/L Normal 21.0-32.[address] [facility] Comment on above: Performed By: #### T SH, BMP #### [facility] [address] [place] [address] Dr. Henrietta Herr Creatinine [Mass/Vol] 0.95 mg/dL Normal 0.55-1.02 [facility] Comment on above: Performed By: #### T SH, BMP #### [facility] [address] [address] [address] Henrietta Herr EGFR-AF [place] >60 Normal >=60 [facility] Comment on above: Performed By: #### T SH, BMP #### [facility] [address] [address] [address] Henrietta Herr EGFR-NON AF [place] >60 Normal >=60 [facility] Comment on above: Performed By: #### T SH, BMP #### [facility] [address] [address] [address] Henrietta Herr Glucose [Mass/Vol] 113 mg/dL Critically high 74-106 [facility] Comment on above: Performed By: #### T SH, BMP #### [facility] [address] [place] [address] Dr. Henrietta Herr Potassium [Moles/Vol] 4.3 mmol/L Normal 3.5-5.1 [facility] Comment on above: Performed By: #### T SH, BMP #### [facility] [address] [place] [address] Dr. Henrietta Herr Sodium [Moles/Vol] 139 mmol/L Normal 136-145 [facility] Comment on above: Performed By: #### T SH, BMP #### [facility] [address] [place] [address] Dr. Henrietta Herr Urea nitrogen [Mass/Vol] 21.0 mg/dL Critically high 7.0-18.0 [facility] Comment on above: Performed By: #### T SH, BMP #### [facility] [address] [place] [address] Dr. Henrietta Herr Urea nitrogen/Creatini ne [Mass ratio] 22.1 mg/mg Normal [facility] Comment on above: Performed By: #### T SH, BMP #### [facility] [address] [place] [address] Dr. Henrietta Herr TSHon 09-17-2022 TSH 1.038 uIU/mL Normal 0.358-3.740 [facility] Comment on above: Performed By: #### T SH, [facility] #### [facility] [address] [address] [address] Henrietta Herr US ST HEAD_NECKon 09-13-2022 [...] EDUARDO TREVINO Date: 2022-09-13 09:15 Normal [facility] HEPATITIS C ANTIBODYon 04-27 Hep C Virus Ab 0.1 s/co ratio Normal 0.0-0.9 [facility] Comment on above: Result Comment: Nega [...] Hepatitis C Virus (HCV) RNA, Diagnosis, ANDREA ([id number]) and Hepatitis C Virus (HCV) Antibody with reflex to Quantitative Real-time PCR ([id number]). Performed By: #### H CV #### [facility] [address] [address] [address] Henrietta Herr HIV 1 AND 2 WITH REFLEXon HIV Screen 4th Generation wRfx Non-Reactive Normal Non Reactive [facility] Comment on above: Result Comment: HIV Negative HIV-1/HIV-2 antibodies and HIV-1 p24 antigen were NOT detected. There is no laboratory evidence of HIV infection. Performed By: #### H IV12 #### [facility] [address] [place], [place] [address] Dr. Henrietta Herr GLYCOHEMOGLOBIN A1Con 2021 ADA RECOMMENDATION SEE BELOW Normal [facility] Comment on above: Result Comment: ADA RECOMMENDED LIMIT 4.0 - 6.0 ADA THERAPEUTIC TARGET < 7.0 ACTION SUGGESTED > 7.0 Performed By: #### C BC #### [facility] [address] [address] [address] Henrietta Herr Glucose [Mass/Vol] 114 mg/dL Normal [facility] Comment on above: Performed By: #### C BC #### [facility] [address] [address] [address] Henrietta Herr HbA1c (Bld) [Mass fraction] 5.6 % Normal 4.5-6.2 [facility] Comment on above: Performed By: #### C BC #### [facility] [address] [address] [address] Henrietta Herr TSHon 04-26-2022 TSH 0.549 uIU/mL Normal 0.358-3.740 [facility] Comment on above: Performed By: #### T SH #### [facility] [address] [place] [address] Dr. Henrietta Herr XR forearm LT 2V*on 06-14-20 21 XR forearm LT 2V* [facility] [place] [place] [address] XRay Report Signed Patient: Roslyn Flores MR#: [id number] : 1970 Acct:[id number] Age/Sex: 51 / F ADM Date: 06/13/21 Loc: XDUC Room: Type: [facility] Attending Dr: Melo TRIMBLE Ordering Provider: Melo ESTRADA-C Date of Service: 06/13/21 XR/XR forearm LT [...] May Pineda M.D.06/14/2021 7:46 AM Dictation Location: [facility] Transcribed By: SALINA 06/14/21745 Dictated By: May Pineda MD 06/14/2145 Signed By: 06/14/2146 [facility] CNOVSPon 08-05-2017 CNOVSP Visit (SP) Office (HEMACL) ----ROSLYN FLORES ([id number]) 1970 FDate Time Provider Nkhcnwnqkl36/2/17 9:00 AM SIM LLAMAS HEMACL During your visit today, we recorded the following information about you: Pulse Respiration Blood pressure Weight 83/minute 18/minute 116/62 49.7 kg Height 1.575 mReferring Provider: MEDINA CAREY [[id number]]Allergies As of Date: 08/05/2017 Noted Allergy ReactionAMPICILLIN [...] >> Rita Llanes 08/05/2017 9:02 AM >> LLANESFebruaryAug 05, 2017 9:02 AM Received from: External Pharmacy Received Sig: TAKE 1 TABLET BY MOUTH EVERYDAY PHENAZOPYRIDINE 200 MG TABLET >> February Llanes 08/05/2017 9:02 AM >> LLANESFebruaryAug 05, 2017 9:02 AM Received from: External Pharmacy SULFAMETHOXAZOLE 800 MG-TRIMETHOPRIM 160 MG TABLET >> February Mario Alberto 08/05/2017 9:02 AM >> LLANESFebruaryAug 05, 2017 9:02 AM Received from: External Pharmacy Received Sig: TAKE 1 TABLET BY MOUTH TWICEDAILY FOR 5 DAYSProblem List As Of Date 08/05/2017 Noted Resolved Abnormal bleeding time [R79.1] INVALID FOR*Encounter Status:Closed by SIM LLAMAS MD on 08/06/17 [facility] CNOVSPon 07-16-2017 CNOVSP Visit (SP) Office (HEMASA) ----ROSLYN FLORES ([id number]) 1970 [facility] Time Provider Department07/16/17 2:45 PM SIM LLAMAS [...] also has a history of endometriosis leaving toT/BSO in the past. She is on estrogen [...] kg (110 lb 3.2 oz) BMI 20.16 kg/c1Krytyco appearance: well appearing, alert, in no acute [...] this cousin has had genetic testing in [place] and wasreported to have findings that would [...] her symptomsAlfred Eliezer Cooper Provider: MEDINA CAREY [[id number]]Allergies As of Date: 07/16/2017 Noted Allergy ReactionAMPICILLIN 04/28/2010 7 - SwellingPENICILLINS 08/16/2015 10 - AnaphylaxisDate Reviewed: 07/16/2017Reviewed by: Heather Toney - Fully AssessedReason for Visit: Consult [173] Cmt: Dr. angelo for abnormal mammogramPrimary Visit Diagnosis:Abnormal mammogram [R92.8] Other Visit Diagnoses:Nipple discharge in female [N64.52] Family history of breast cancer [Z80.3]Order(s):PROLACTIN BLD [SQPROL] Order #: [id number] FUTURE TSH BLD [SQTSH] Order #: [id number] FUTURE CONSULT TO MEDICAL GENETICS [19991108] Order #: [id number]: 1Follow-up and Disposition History RecordedPrescriptions as of [...] by SIM LLAMAS MD on 07/16/17 Normal [facility] MRI Breast w/o and/or w/ Con trast Bilateralon 07-16-2017 MRI Breast w/o and/or w/ Contrast Bilateral Exam Date/Time:07/12/2017 15:18 EDTReason for Exam:ABNORMAL BREAST IMAGING, ABNORMAL MAMM RIGHT, FAMILY HX BREAST CA, HX BREAST AUGMENTATIONReportIMPRESSION : BI-RADS CATEGORY 2: BENIGN.CLINICAL HISTORY: abnormal breast [...] AFTechnical CommentsMultiHanceContrast amount in ml's: 10 Normal [facility] PROGRESSon 07-16-2017 PROGRESS HNO ID: [id number] thor: Sim Vangice: (none)Author Type: PhysicianType: Progress [...] kg (110 lb 3.2 oz) BMI 20.16 kg/a4Wvhoaow appearance: well appearing, alert, in no acute [...] Apparently this cousin has hadgenetic testing in [place] and was reported to have findings that [...] results her symptomsAlfred Mariposa Llamas MD Normal [facility] Prolactinon 07-16-2017 Prolactin 9.5 ng/mL Normal 4.5-26.8 [facility] Comment on above: Performed By: #### T SH, PROL ####[facility] [address] [place], [place] [phone] TSHon 07-16-2017 Thyroid stimulating hormone (TSH) 0.320 uU/mL Low 0.400-5.500 [facility] Comment on above: Result Comment: If t he patient is , TSH reference range varies by gestational period:First Trimester 0.100-2.500 uU/mLSecond Trimester 0.200-3.000 uU/mLThird Trimester 0.300-3.000 uU/mLReferences: 1. Perry L, Anmol M, Desmond EK, et al. Management of Thyroid Dysfunction during and : An Endocrine Society Clinical Practice Guideline. J Clin Endocrinol Metab, 2012:97:5637-8672. 2. Asif CARR. Overview of thyroid disease in . UpToDate. 2016. Accessed on April 20, 2016. Performed By: #### T SH, PROL ####[facility] [address] [place], [place] [phone] Coding Summary.on 07-13-2017 Coding Summary. CODING DATE: 017 [facility] STATUS: Home (Routine DC) PAYOR: Commercial Insurance [...] Shearer Date Saved: 07/13/2017 09:02 am Normal [facility] Vital Signs Date Time Vital Sign Value Performing Clinician Facility 12-29-2024 10:08-0500 Body height 157.5 cm Seymour Rivas MD Work Phone: [facility] 12-29-2024 10:08-0500 Body mass index (BMI) [Ratio] 21.4 kg/m2 Seymour Rivas MD Work Phone: [facility] 12-29-2024 10:08-0500 Body temperature 97.81 [degF] Seymour Rivas MD Work Phone: [facility] 12-29-2024 10:08-0500 Body weight 53.07 kg Seymour Rivas MD Work Phone: [facility] 12-29-2024 10:08-0500 Diastolic blood pressure 72 mm[Hg] Seymour Rivas MD Work Phone: [facility] 12-29-2024 10:08-0500 Heart rate 89 /min Seymour Rivas MD Work Phone: [facility] 12-29-2024 10:08-0500 Respiratory rate 18 /min Seymour Rivas MD Work Phone: [facility] 12-29-2024 10:08-0500 SaO2% (BldA) [Mass fraction] 98 % Seymour Rivas MD Work Phone: [facility] 12-29-2024 10:08-0500 Systolic blood pressure 150 mm[Hg] Seymour Rivas MD Work Phone: [facility] 12-16-2024 11:00-0500 Body height 157.5 cm Monse Paystrup NURSE SPECIALIST Work Phone: [facility] 12-16-2024 11:00-0500 Body mass index (BMI) [Ratio] 20.12 kg/m2 Monse Paystrup NURSE SPECIALIST Work Phone: [facility] 12-16-2024 11:00-0500 Body weight 49.9 kg Monse Paystrup NURSE SPECIALIST Work Phone: [facility] 12-16-2024 11:00-0500 Diastolic blood pressure 81 mm[Hg] Monse Paystrup NURSE SPECIALIST Work Phone: [facility] 12-16-2024 11:00-0500 Systolic blood pressure 142 mm[Hg] Monse Paystrup NURSE SPECIALIST Work Phone: [facility] 11-13-2024 11:31-0500 Body height 156.2 cm Seymour Rivas MD Work Phone: [facility] 11-13-2024 11:31-0500 Body mass index (BMI) [Ratio] 21.01 kg/m2 Seymour Rivas MD Work Phone: [facility] 11-13-2024 11:31-0500 Body temperature 97.5 [degF] Seymour Rivas MD Work Phone: [facility] 11-13-2024 11:31-0500 Body weight 51.26 kg Seymour Rivas MD Work Phone: [facility] 11-13-2024 11:31-0500 Diastolic blood pressure 74 mm[Hg] Seymour Rivas MD Work Phone: [facility] 11-13-2024 11:31-0500 Heart rate 50 /min Seymour Rivas MD Work Phone: [facility] 11-13-2024 11:31-0500 Respiratory rate 20 /min Seymour Rivas MD Work Phone: [facility] 11-13-2024 11:31-0500 SaO2% (BldA) [Mass fraction] 90 % Seymour Rivas MD Work Phone: [facility] 11-13-2024 11:31-0500 Systolic blood pressure 160 mm[Hg] Seymour Rivas MD Work Phone: [facility] 10-09-2024 09:26-0500 Body height 156.2 cm Jr. Stepanic DO Work Phone: [facility] 10-09-2024 09:26-0500 Body mass index (BMI) [Ratio] 20.82 kg/m2 Jr. Stepanic DO Work Phone: [facility] [facility] 10-09-2024 09:26-0500 Body weight 50.8 kg Jr. Stepanic DO Work Phone: [facility] 08-19-2024 10:27-0400 Body height 156.2 cm Seymour Rivas MD Work Phone: [facility] 08-19-2024 10:27-0400 Body mass index (BMI) [Ratio] 21.56 kg/m2 Seymour Rivas MD Work Phone: [facility] 08-19-2024 10:27-0400 Body temperature 97.5 [degF] Seymour Rivas MD Work Phone: [facility] 08-19-2024 10:27-0400 Body weight 52.62 kg Seymour Rivas MD Work Phone: [facility] 08-19-2024 10:27-0400 Diastolic blood pressure 76 mm[Hg] Seymour Rivas MD Work Phone: [facility] 08-19-2024 10:27-0400 Heart rate 93 /min Seymour Rivas MD Work Phone: [facility] 08-19-2024 10:27-0400 Respiratory rate 22 /min Seymour Rivas MD Work Phone: [facility] 08-19-2024 10:27-0400 SaO2% (BldA) [Mass fraction] 99 % Seymour Rivas MD Work Phone: [facility] 08-19-2024 10:27-0400 Systolic blood pressure 140 mm[Hg] Seymour Rivas MD Work Phone: [facility] 06-29-2024 14:06-0400 Body height 157.5 cm Seymour Rivas MD Work Phone: [facility] 06-29-2024 14:06-0400 Body mass index (BMI) [Ratio] 20.67 kg/m2 Seymour Rivas MD Work Phone: [facility] 06-29-2024 14:06-0400 Body temperature 97.81 [degF] Seymour Rivas MD Work Phone: [facility] 06-29-2024 14:06-0400 Body weight 51.26 kg Seymour Rivas MD Work Phone: [facility] 06-29-2024 14:06-0400 Diastolic blood pressure 62 mm[Hg] Seymour Rivas MD Work Phone: [facility] 06-29-2024 14:06-0400 Heart rate 97 /min Seymour Rivas MD Work Phone: [facility] 06-29-2024 14:06-0400 Respiratory rate 20 /min Seymour Rivas MD Work Phone: [facility] 06-29-2024 14:06-0400 SaO2% (BldA) [Mass fraction] 97 % Seymour Rivas MD Work Phone: [facility] 06-29-2024 14:06-0400 Systolic blood pressure 128 mm[Hg] Seymour Rivas MD Work Phone: [facility] 04-22-2022 15:35-0400 Body height 156.21 cm Alejandra Higgins Other [facility] Other 04-22-2022 15:35-0400 Body mass index (BMI) [Ratio] 18.4 kg/m2 Alejandra Higgins Other [facility] Other 04-22-2022 15:35-0400 Body temperature 99.7 [degF] Alejandra Higgins Other [facility] Other 04-22-2022 15:35-0400 Body weight 44.91 kg Alejandra Higgins Other [facility] Other 04-22-2022 15:35-0400 Diastolic blood pressure 81 mm[Hg] Alejandra Higgins Other [facility] Other 04-22-2022 15:35-0400 Respiratory rate 18 /min Alejandra Higgins Other [facility] Other 04-22-2022 15:35-0400 SaO2% (BldA) [Mass fraction] 98 % Alejandra Higgins Other [facility] Other 04-22-2022 15:35-0400 Systolic blood pressure 143 mm[Hg] Alejandra Higgins Other [facility] Other Encounters Encounter Date Encounter Type Care Provider Facility Start: 12-30-2024 End: 12-31-2024 Refill Seymour Rivas MD Work Phone: [facility] Comment on above: Lumbar spondylolysis Start: 12-29-2024 End: 12-29-2024 Bamboo flowsheet Seymour Rivas MD Work Phone: [facility] Start: 12-29-2024 End: 12-29-2024 Bamboo flowsheet Seymour Rivas MD Work Phone: [facility] Start: 12-29-2024 End: 12-29-2024 Patient encounter procedure Seymour Rivas MD Work Phone: [facility] Work Phone: Start: 12-29-2024 End: 12-29-2024 Periodic preventive med est patient 40-64yrs Seymour Rivas MD Work Phone: [facility] Comment on above: Annual physical exam (Primary Dx); Benign essential hypertension (CMS/HCC); Abnormal TSH; Breast cancer screening by mammogram; Bilateral leg edema; Rosacea; Lumbar spondylolysis Start: 12-29-2024 End: 12-29-2024 ambulatory SEYMOUR RIVAS Not Available Start: 12-16-2024 End: 12-16-2024 Bamboo flowsheet Monse Paystrup NURSE SPECIALIST Work Phone: [facility] Start: 12-16-2024 End: 12-16-2024 Bamboo flowsheet Monse Paystrup NURSE SPECIALIST Work Phone: [facility] Start: 12-16-2024 End: 12-16-2024 Office outpatient new 45 minutes Monse Paystrup NURSE SPECIALIST Work Phone: [facility] Comment on above: Impingement syndrome of left shoulder (Primary Dx); Pre-op exam; Benign essential hypertension (CMS/HCC); Migraine without aura and with status migrainosus, not intractable (CMS/HCC) Start: 12-16-2024 End: 12-16-2024 Preprocedural examination done Monse Paystrup NURSE SPECIALIST Work Phone: [facility] Work Phone: Start: 12-16-2024 End: 12-16-2024 ambulatory MONSE PAYSTRUP Not Available Start: 12-15-2024 End: 12-15-2024 Refill Seymour Rivas MD Work Phone: [facility] Comment on above: Lumbar spondylolysis Start: 12-02-2024 End: 12-02-2024 Refill Seymour Rivas MD Work Phone: [facility] Comment on above: Allergic rhinitis du e to pollen; Lumbar spondylolysis Start: 11-18-2024 End: 11-18-2024 Refill Seymour Rivas MD Work Phone: [facility] Comment on above: Lumbar spondylolysis Start: 11-13-2024 End: 11-13-2024 Bamboo flowsheet Seymour Rivas MD Work Phone: [facility] Start: 11-13-2024 End: 11-13-2024 Bamboo flowsheet Seymour Rivas MD Work Phone: [facility] Start: 11-13-2024 End: 11-13-2024 ambulatory SEYMOUR RIVAS Not Available Start: 11-13-2024 End: 11-13-2024 Office outpatient visit 15 minutes Seymour Rivas MD Work Phone: [facility] Comment on above: Benign essential hyp ertension (CMS/HCC) (Primary Dx); Bilateral leg edema Start: 11-02-2024 End: 11-02-2024 Refill Seymour Rivas MD Work Phone: [facility] Comment on above: Lumbar spondylolysis Start: 10-19-2024 End: 10-19-2024 Refill Seymour Rivas MD Work Phone: [facility] Comment on above: Lumbar spondylolysis Start: 10-09-2024 End: 10-09-2024 Office outpatient visit 25 minutes Jr. Jaime Cordova DO Work Phone: [facility] Comment on above: Chronic left shoulde r pain (Primary Dx); Internal derangement of left shoulder Start: 10-09-2024 End: 10-09-2024 ambulatory JAIME ANDERSON Not Available Start: 09-30-2024 End: 09-30-2024 Refill Seymour Rivas MD Work Phone: [facility] Comment on above: Lumbar spondylolysis Start: 09-22-2024 End: 09-22-2024 ambulatory MARK BURROUGHS [facility] Start: 09-17-2024 End: 09-18-2024 Janette Rivas MD Work Phone: [facility] Comment on above: Lumbar spondylolysis MRI Start: 09-15-2024 End: 09-15-2024 ambulatory MARK BURROUGHS Not Available Start: 09-15-2024 End: 09-15-2024 Postop follow up visit related to original px Mark Burroughs DO Work Phone: [facility] Comment on above: Chronic left shoulde r pain (Primary Dx); Ganglion of left shoulder Start: 09-10-2024 End: 09-10-2024 Bamboo flowsheet Mark Burroughs DO Work Phone: [facility] Start: 09-10-2024 End: 09-10-2024 BamIntelleflexheet Mark Burroughs DO Work Phone: [facility] Start: 09-10-2024 End: 09-10-2024 Office outpatient visit 25 minutes Mark Burroughs DO Work Phone: [facility] Comment on above: Chronic left shoulde r pain (Primary Dx); Internal derangement of left shoulder; Tendinosis of left rotator cuff; Superior glenoid labrum lesion of left shoulder, initial encounter; Ganglion of left shoulder Start: 09-10-2024 End: 09-10-2024 ambulatory MARK BURROUGHS Not Available Start: 09-07-2024 End: 09-07-2024 ambulatory MARK BURROUGHS Not Available Start: 09-01-2024 End: 09-01-2024 Office outpatient new 30 minutes Mark Burroughs DO Work Phone: [facility] Comment on above: Chronic left shoulde r pain (Primary Dx); Internal derangement of left shoulder; Nontraumatic tear of left rotator cuff, unspecified tear extent Start: 09-01-2024 End: 09-01-2024 ambulatory MARK BURROUGHS Not Available Start: 08-31-2024 End: 08-31-2024 Refill Seymour Rivas MD Work Phone: [facility] Comment on above: Lumbar spondylolysis Start: 07-31-2024 End: 07-31-2024 Refill Seymour Rivas MD Work Phone: [facility] Comment on above: Lumbar spondylolysis Start: 07-10-2024 End: 07-10-2024 Refill Seymour Rivas MD Work Phone: [facility] Comment on above: Lumbar spondylolysis Start: 06-29-2024 End: 06-29-2024 Office outpatient visit 25 minutes Seymour Rivas MD Work Phone: [facility] Comment on above: Benign essential hyp ertension (CMS/HCC) (Primary Dx); Lumbar spondylolysis; Migraine without aura and with status migrainosus, not intractable (CMS/HCC); Seasonal allergic rhinitis due to pollen Start: 06-29-2024 End: 06-29-2024 Bamboo flowsheet Seymour Rivas MD Work Phone: [facility] Start: 06-29-2024 End: 06-29-2024 Bamboo flowsheet Seymour Rivas MD Work Phone: [facility] Start: 06-29-2024 End: 06-29-2024 ambulatory SEYMOUR RIVAS Not Available Start: 06-21-2024 End: 06-22-2024 Refill Seymour Rivas MD Work Phone: [facility] Comment on above: Pain in right hip; Migraine without aura, not intractable, with status migrainosus (CMS/HCC); Lumbar spondylolysis Start: 03-04-2024 End: 03-04-2024 ambulatory SEYMOUR RIVAS [...] 04-22-2022 End: 04-22-2022 ambulatory Alejandra Higgins Other [facility] Other Start: 04-22-2022 Office outpatient vi sit 15 minutes Alejandra Higgins [facility] Start: 08-05-2017 [facility] Start: 07-16-2017 End: 07-17-2017 Ambulatory SIM LLAMAS [facility] Start: 07-12-2017 End: 07-13-2017 Patient encounter Medina Carey Facility:[facility] Procedures Date Procedure Procedure Detail Performing Clinician Start: 12-27-2022 Colonoscopy Seymour laurent MD Work Phone: Start: 12-07-2022 Mammography Seymour laurent MD Work Phone: Plan of Treatment Date Care Activity Detail Author Start: 12-27-2032 Screening for malign ant neoplasm of colon [facility] Start: 03-30-2025 End: 03-30-2025 Patient encounter procedure 03/30/2025 2:45 PM EDT Office Visit [facility] [address] [place] [phone] Seymour Rivas MD [address] [place] [phone] [facility] Start: 12-29-2024 End: 12-29-2025 Basic metabolic 1998 panel - Serum or Plasma Basic metabolic panel Lab Routine Annual physical exam Expected: 12/29/2024 (Approximate), Expires: 12/29/2025 [facility] Work Phone: Comment on above: Expected: 12/29/2024 (Approximate), Expires: 12/29/2025 Start: 12-29-2024 End: 12-29-2025 CBC W Auto Differential panel - Blood CBC and differential Lab Routine Annual physical exam Expected: 12/29/2024 (Approximate), Expires: 12/29/2025 [facility] Comment on above: Expected: 12/29/2024 (Approximate), Expires: 12/29/2025 Start: 12-29-2024 End: 12-29-2025 Hemoglobin A1c/Hemoglobin.total in Blood Hemoglobin A1c Lab Routine Annual physical exam Expected: 12/29/2024 (Approximate), Expires: 12/29/2025 [facility] Comment on above: Expected: 12/29/2024 (Approximate), Expires: 12/29/2025 Start: 12-29-2024 End: 12-29-2025 Hepatic function 2000 panel - Serum or Plasma Hepatic function panel Lab Routine Annual physical exam Expected: 12/29/2024 (Approximate), Expires: 12/29/2025 [facility] Comment on above: Expected: 12/29/2024 (Approximate), Expires: 12/29/2025 Start: 12-29-2024 End: 12-29-2025 Lipid 1996 panel - Serum or Plasma Lipid panel Lab Routine Annual physical exam Expected: 12/29/2024 (Approximate), Expires: 12/29/2025 [facility] Comment on above: Expected: 12/29/2024 (Approximate), Expires: 12/29/2025 Start: 12-29-2024 End: 02-26-2026 MG Breast - bilateral Screening Bilateral screening mammogram Imaging Routine Breast cancer screening by mammogram Expected: 12/29/2024, Expires: 02/26/2026 [facility] Comment on above: Expected: 12/29/2024 , Expires: 02/26/2026 Start: 12-29-2024 End: 12-29-2025 Thyrotropin [Units/volume] in Serum or Plasma TSH Lab Routine Annual physical exam Expected: 12/29/2024 (Approximate), Expires: 12/29/2025 [facility] Comment on above: Expected: 12/29/2024 (Approximate), Expires: 12/29/2025 Start: 12-29-2024 End: 12-29-2025 Thyroxine (T4) free [Mass/volume] in Serum or Plasma T4, free Lab Routine Abnormal TSH Expected: 12/29/2024 (Approximate), Expires: 12/29/2025 [facility] Comment on above: Expected: 12/29/2024 (Approximate), Expires: 12/29/2025 Start: 12-29-2024 End: 12-29-2024 Patient encounter procedure 12/29/2024 10:00 AM EST Office [facility] [address] [place] [address] Seymour Rivas MD [address] [place] [address] [facility] Comment on above: Arrived Start: 12-28-2024 End: 12-28-2024 Patient encounter procedure 12/28/2024 2:30 PM EST [facility] [address] [place] [address] Seymour Rivas MD [address] [place] [phone] [facility] Start: 12-16-2024 End: 12-16-2024 Patient encounter procedure [facility] Comment on above: Impingement syndrome of left shoulder (Primary Dx); Pre-op exam Start: 12-11-2024 End: 12-11-2025 CBC W Auto Differential panel - Blood CBC and differential Lab Routine Pre-op exam Expected: 12/11/2024 (Approximate), Expires: 12/11/2025 [facility] Comment on above: Expected: 12/11/2024 (Approximate), Expires: 12/11/2025 Start: 12-11-2024 End: 12-11-2025 Comprehensive metabolic 2000 panel - Serum or Plasma Comprehensive metabolic panel Lab Routine Pre-op exam Expected: 12/11/2024 (Approximate), Expires: 12/11/2025 [facility] Comment on above: Expected: 12/11/2024 (Approximate), Expires: 12/11/2025 Start: 12-11-2024 End: 12-11-2025 ECG 12 lead ECG 12 lead ECG Routine Pre-op exam Expected: 12/11/2024 (Approximate), Expires: 12/11/2025 [facility] Work Phone: Comment on above: Expected: 12/11/2024 (Approximate), Expires: 12/11/2025 Start: 11-13-2024 End: 11-13-2024 Patient encounter procedure 11/13/2024 11:15 AM EST Office Visit [facility] [address] [place] [address] Seymour Rivas MD [address] [place] [phone] [facility] Start: 10-09-2024 End: 10-09-2024 Patient encounter procedure 10/09/2024 9:15 AM EST Office Visit [facility] [address] [place] [address] Jr. Jaime Cordova DO [address] [address] [place] [address] [facility] Start: 09-15-2024 End: 09-15-2025 MR Shoulder - left Arthrogram MR shoulder arthrogram left Imaging Routine Ganglion of left shoulder Expected: 09/15/2024 (Approximate), Expires: 09/15/2025 [facility] Work Phone: Comment on above: Expected: 09/15/2024 (Approximate), Expires: 09/15/2025 Start: 09-15-2024 End: 09-15-2024 Patient encounter procedure 09/15/2024 9:15 AM EST [facility] [address] [facility] [address] [place] [address] Mark Burroughs, DO [address] [facility] [address] [place] [address] [facility] Start: 09-10-2024 End: 09-10-2024 Patient encounter procedure 09/10/2024 9:30 AM EST [facility] Visit [facility] [address] [place] [id number] Mark Burroughs, DO [address] [facility] [address] [place] [address] Chronic left shoulder pain (Primary Dx); Internal derangement of left shoulder; Tendinosis of left rotator cuff; Superior glenoid labrum lesion of left shoulder, initial encounter; Ganglion of left shoulder [facility] Comment on above: Chronic left shoulde r pain (Primary Dx); Internal derangement of left shoulder; Tendinosis of left rotator cuff; Superior glenoid labrum lesion of left shoulder, initial encounter; Ganglion of left shoulder Start: 09-01-2024 End: 09-01-2024 Patient encounter procedure 09/01/2024 1:00 PM EDT Office Visit [facility] [address] [facility] [address] [place] [address] Mark Burroughs, DO [address] [facility] [address] [place] [address] [facility] Start: 08-19-2024 End: 08-19-2025 XR Shoulder - left 2 Views XR shoulder 2+ views left Imaging Routine Chronic left shoulder pain Expected: 08/19/2024, Expires: 08/19/2025 [facility] Work Phone: Comment on above: Expected: 08/19/2024 , Expires: 08/19/2025 Start: 08-19-2024 End: 08-19-2024 Patient encounter procedure 08/19/2024 10:15 AM EDT Office Visit [facility] [address] [place] [phone] Seymour Rivas MD [address] [place] [phone] [facility] Start: 07-05-2024 Influenza vaccination Influenza Vacc ine (#1) [facility] Start: 06-29-2024 End: 06-29-2024 [facility] Ar[facility] Start: 12-07-2023 Screening for malign ant neoplasm of breast Mammogram [facility] Start: 1999 Screening for malign ant neoplasm of cervix [facility] Start: 1990 Screening for malign ant neoplasm of cervix Pap Smear [facility] Start: 1969 Screening for malign ant neoplasm of colon [facility] Immunizations Immunization Date Immunization Notes Care Provider [facility] 09-14-2024 Seasonal, trivalent, recombinant, injectable influenza vaccine, preservative free Seymour Rivas MD Work Phone: [facility] 10-03-2023 Influenza, injectabl e, Madin [place] Canine Kidney, preservative free, quadrivalent Seymour Rivas MD Work Phone: [facility] 10-03-2023 influenza virus vacc ine, unspecified formulation Seymour Rivas MD Work Phone: [facility] 02-10-2023 zoster vaccine recombinant Seymour Rivas MD Work Phone: [facility] 09-28-2022 influenza, injectabl e, quadrivalent, preservative free Seymour Rivas MD Work Phone: [facility] 08-10-2022 zoster vaccine recombinant Seymour Rivas MD Work Phone: [facility] 10-10-2021 influenza, injectabl e, quadrivalent, preservative free Seymour Rivas MD Work Phone: [facility] 08-20-2019 influenza, injectabl e, quadrivalent, preservative free Seymour Rivas MD Work Phone: [facility] 10-23-2018 influenza, injectabl e, quadrivalent, preservative free Seymour Rivas MD Work Phone: [facility] 10-07-2017 Influenza, injectabl e, Madin [place] Canine Kidney, preservative free, quadrivalent Seymour Rivas MD Work Phone: [facility] 10-29-2016 influenza, seasonal, injectable, preservative free Seymour Rivas MD Work Phone: [facility] 09-12-2015 influenza, seasonal, injectable, preservative free Seymour Rivas MD Work Phone: [facility] Payers Date Payer Category Payer [facility] [id number] 2022 Unknown [id number] 2022 Unknown [id number] 2017 Unknown 1969 Unknown [id number] 2.16.84 [id number] 1969 Unknown [id number] 2.16.84 [id number] 1969 Unknown [id number] 2.16.84 0.1.355714.3.579.2.593 1969 Unknown [id number] 2.16.84 0.1.857879.3.579.2.593 1969 Unknown [id number] 2.16.84 0.1.060725.3.579.2.593 1969 Unknown [id number] 2.16.8 40.1.382307.3.579.2.1286 1969 Unknown [id number] 2.16.8 40.1.773224.3.579.2.1286 1969 Unknown [id number] 2.16.84 0.1.056235.3.579.2.1259 1969 Unknown [id number] 2.16.84 0.1.168971.3.579.2.1259 1969 Unknown [id number] 2.16.84 0.1.963548.3.579.2.1259 1969 Unknown [id number] 2.16.84 0.1.008329.3.579.2.1259 1969 Unknown [id number] 2.16.84 0.1.304589.3.579.2.1259 1969 Unknown [id number] 2.16.84 0.1.447755.3.579.2.1259 1969 Unknown [id number] 2.16.84 0.1.545288.3.579.2.1259 1969 Unknown [id number] 2.16.84 0.1.255925.3.579.2.1259 1969 Unknown [id number] 2.16.84 0.1.014166.3.579.2.1259 1969 Unknown [id number] 2.16.84 0.1.350582.3.579.2.1259 1969 Unknown [id number] 2.16.84 0.1.714699.3.579.2.1259 1969 Unknown [id number] 2.16.84 0.1.961518.3.579.2.1259 1959 [facility] [id number] Social History Date Type Detail Facility Unknown if ever smoked [facility] Other Start: 06-29-2024 End: 12-16-2024 Sex Assigned At [facility] Other Start: 12-18-2023 Tobacco smoking stat [facility] Never smoked tobacco [facility] Start: 06-29-2024 End: 12-16-2024 History of Social function [facility] Start: 1970 Sex assigned at Not on file [facility] Start: 10-09-2024 End: 12-29-2024 Alcoholic beverage intake Current drinker of alcohol (finding) [facility] Clinical Notes 04-22-2022 to 12-29-2024 Seymour Rivas MD - 12/29/2024 10:45 AM Bartolo Rivas MD - 12/29/2024 10:45 AM Bartolo Rivas MD - 12/29/2024 10:00 AM ESTTelephone Encounter - Seymour Rivas MD - 11/18/2024 2:28 PM EST Note Date & Type Note Facility 12-29-2024 History of Presen t illness Narrative Associated Problem(s): Benign essential hypertension (CMS/HCC) BP elevated and increase losartan. Continue to monitor PRN. Discussed DASH diet. Associated Problem(s): Annual physical exam Due for labs. Discussed proper diet and regular aerobic exercise. Need aerobic exercise 5-6 days a week for 30 minutes at a time. Smaller portions and limit total calories. Colonoscopy every 10 years. Tetanus every 10 years. Advised not to smoke. Discussed daily Aspirin therapy. Images from the original note were not included. Subjective Patient ID: Roslyn Flores is a 54 y.o. female who presents for Follow-up (6 m). Presents for annual PE. Weight up 6 pounds in the past year. Active and exercises several days a week. Tries to watch diet and eat healthy. Increased fruits and vegetables. Smaller portions and limits snacking. Tries to limit total daily calories. C/o fatigue and no energy. Always tired and worried about thyroid. Checking BP PRN and frequently elevated. BP elevated today at 150/72. Taking medication daily and tolerating without side effects. Review of Systems Respiratory: Negative for cough, [...] There is no guarding or rebound. Musculoskeletal: General: No swelling or tenderness. Cervical back: Neck supple. Right lower leg: No edema. Left lower leg: No edema. Skin: Findings: No erythema or rash. Neurological: General: No focal deficit present. Mental Status: She is alert and oriented to person, place, and time. Cranial Nerves: No cranial nerve deficit. Motor: No weakness. Gait: Gait normal. Assessment/Plan Problem List Items Addressed This Visit Abnormal TSH Relevant Orders T4, free Benign essential hypertension (CMS/HCC) BP elevated and increase losartan. Continue to monitor PRN. Discussed DASH diet. Relevant Medications losartan (Cozaar) 50 MG tablet Bilateral leg edema Relevant Medications furosemide (Lasix) 40 MG tablet Lumbar spondylolysis Relevant Medications etodolac (Lodine) 400 MG tablet Annual physical exam - Primary Due for labs. Discussed proper diet and regular aerobic exercise. Need aerobic exercise 5-6 days a week for 30 minutes at a time. Smaller portions and limit total calories. Colonoscopy every 10 years. Tetanus every 10 years. Advised not to smoke. Discussed daily Aspirin therapy. Relevant Orders Basic metabolic panel Hemoglobin A1c CBC and differential Hepatic function panel Lipid panel TSH Rosacea Relevant Medications Ivermectin 1 % cream Other Visit Diagnoses Breast cancer screening by mammogram Relevant Orders Bilateral screening mammogram documented in this encounter [facility] 11-18-2024 Telephone encount er Note [facility] 11-18-2024 Miscellaneous Notes Formattin g of this note might be different from the original. documented in this encounter [facility] 11-13-2024 History of Presen t illness Narrative Associated Problem(s): Bilateral leg edema Edema controlled with lasix and continue. Elevate legs PRN. Associated Problem(s): Benign essential hypertension (CMS/HCC) BP elevated and add losartan. Continue to monitor PRN. Discussed DASH diet. Images from the original note were not included. Subjective Patient ID: Roslyn Flores is a 54 y.o. female who presents for Hypertension (Bp running high). Concerned of elevated blood pressure. To ER end of September and BP 200/100. Started checking at home and BP elevated. Systolic 150-180 and diastolic 90-110. Today BP 160/74. Recently not exercising and not performing cardio. No recent weight gain. On hydrochlorothiazide in the past but lost weight and hasn't used for several years. Uses lasix for edema and controlled. Review of Systems Respiratory: Negative for cough, [...] No edema. Left lower leg: No edema. Neurological: Mental Status: She is alert. Assessment/Plan Problem List Items Addressed This Visit Benign essential hypertension (CMS/HCC) - Primary BP elevated and add losartan. Continue to monitor PRN. Discussed DASH diet. Relevant Medications losartan (Cozaar) 25 MG tablet Bilateral leg edema Edema controlled with lasix and continue. Elevate legs PRN. documented in this encounter [facility] 10-09-2024 History of Presen t illness Narrative Images from the original note were not included. HISTORY OF PRESENT ILLNESS: EST PT Roslyn Flores is an 54 y.o. @ female. (EST PT W/ DR BURROUGHS) RECHECK (L) SHOULDER ; HERE FOR MRI ARTHROGRAM RESULTS 09/22/24 @ [facility] SHE WAS SEEN AT [facility] ON 10/06/24 (3 DAYS) BY DR. KENT AND WAS GIVEN AN USG STEROID INJECTIONS IN HER SHOULDER W/ 40-50% IMPROVEMENT. XRAYS 08/24/24 @ [facility] MRI ARTHROGRAM 09/22/24 @ [facility] MRI W/O 09/07/24 IN [facility] NO MDP / PREDNISONE USG CORTISONE INJ @ [facility] 10/06/24 NO PHYSICAL THERAPY NO PAIN MGMT PAIN X 8 MONTHS (FEBRUARY 2024) PAIN IS CONSTANT, POSTERIOR SHOULDER AND INTO NECK. RADIATES DOWN TO HER ELBOW. WORSE WITH CERTAIN MOVEMENTS. LIMITED ROM, PAINFUL WITH OVERHEAD ACTIVITY. DULL ACHE, CONSTANT. TINGLING IN RF/LF. ADMITS WEAKNESS. FEELS PULLING IN BICEP IN CERTAIN POSITIONS. TAKING PERCOCET FOR PAIN, FOR HER BACK PER DR. RIVAS. TAKING ETODOLAC WITH GOOD RELIEF. PT IS RT HAND DOMINANT. ALLERGIES: Allergies Allergen Reactions Penicillin G Shortness of breath Hives, throat swelling Ampicillin Hives and Swelling Swelling on tongue, throat, eyes Metronidazole Rash HOME MEDICATIONS: Current Outpatient Medications Medication Instructions alendronate (Fosamax) 70 MG tablet 1 tablet, Every 7 days etodolac (Lodine) 400 MG tablet fluconazole (Diflucan) 150 MG tablet Take 1 tablet (150 mg) by mouth 1 (one) time for 1 dose; may take 2nd dose in 3 days if needed montelukast (SINGULAIR) 10 mg, Oral, Nightly Mucinex D Max Strength 120-1200 MG tablet sustained-release 12 hour 1 tablet, Oral, 2 times daily Multiple Vitamin (multivitamin) tablet 1 tablet, Daily oxaprozin (DAYPRO) 600 mg, Oral, 2 times daily PRN oxyCODONE-acetaminophen (Percocet) 5-325 MG tablet 1 tablet, Oral, 4 times daily PRN Premarin 1.25 mg, Oral, Daily SUMAtriptan (Imitrex) 100 MG tablet TAKE 1 TABLET BY MOUTH IN THE MORNING at the onset OF headache, may repeat in 2 (TWO) hours if needed tiZANidine (ZANAFLEX) 8 mg, Oral, Nightly topiramate (TOPAMAX) 100 mg, Oral, 4 times daily PHYSICAL EXAM: Shoulder Musculoskeletal Exam Inspection Left Left shoulder inspection is normal. Ecchymosis: none Peripheral edema: none Atrophy: mild Masses: none Inspection additional comments: Mild deltoid atrophy. Palpation Left Crepitus: mild Increased warmth: none Tenderness: present Anterior shoulder: mild Bicipital groove: moderate Range of Motion Left Left shoulder range of motion is normal. Active ROM: pain. Passive ROM: pain. Active forward elevation: 90. Passive forward elevation: 160. Shoulder active abduction: 90. Passive abduction: 160. Active external rotation at side: 40. Passive external rotation at side: 50. Internal rotation: L1. Strength Left External rotation: 5/5. Internal rotation: 5/5. Abduction: 3/5. Biceps: 5/5. Triceps: 5/5. Neurovascular Left Radial pulse: normal and 2+ Capillary refill: <3 sec Axillary nerve sensory distribution: normal Scapula Right Right shoulder scapula is normal. Left Left shoulder scapula is normal. Position: normal Winging: none Special Tests Left Rotator Cuff Signs Neer's test: positive Luo test: positive Painful arc test: positive Biceps/armando Signs Speed's test: positive General Constitutional: appears stated age Neurological: alert and oriented x3 Vitals: Body mass index is 20.82 kg/m . Tobacco Use: Unknown (10/09/2024) Patient History Smoking Tobacco Use: Never Smokeless Tobacco Use: Unknown Passive Exposure: Not on file Alcohol Use: Not on file IMAGING: Procedures No orders of the defined types were placed in this encounter. ASSESSMENT: ICD-10-CM 1. Chronic left shoulder pain M25.512 G89.29 2. Internal derangement of left shoulder M24.812 PLAN:Evidence of frozen shoulder on exam today. We'll continue her with Dr. Smith as she Already has an appointment scheduled with him and she prefers to follow up with him. Rotator cuff tear and impingement noted on MRI Questions answered in laymen terms at the bedside. The diagnosis, home exercise plan and any ongoing restrictions/ recommendations reviewed. If unable to be reached in office, I recommend evaluation at nearest Emergency Room if any symptoms worsened or new symptoms develop for requiring urgent evaluation. documented in this encounter [facility] 09-18-2024 Telephone encount er Note Faxed new order to [facility] for arthrogram/MRI marked stat. Pt notified. [facility] 09-18-2024 Miscellaneous Notes Formattin g of this note might be different from the original. Faxed new order to [facility] for arthrogram/MRI marked stat. Pt notified. Patient called in regarding her MRI. She stated that [facility] called her to schedule and they are booking into October. They told her for what needs done it takes 2 time slots. [facility] told he to call her doctor to filiberto this MRI priority to get it done faster. Patient states husbands insurance is running out next week. Please advise [phone]. documented in this encounter [facility] 09-17-2024 Telephone encount er Note Patient called in regarding her MRI. She stated that [facility] called her to schedule and they are booking into October. They told her for what needs done it takes 2 time slots. [facility] told he to call her doctor to filiberto this MRI priority to get it done faster. Patient states husbands insurance is running out next week. Please advise [phone]. [facility] 09-15-2024 History of Presen t illness Narrative Patient ID: Roslyn Flores is a 54 y.o. female. Procedures Ultrasound, Limited, evaluation of the [place]. [id number] The patient was positioned supine. Ultrasound was [...] if she desires a referral to another hearing specialist we would be happy to make referral, she states she would like to continue her care here. documented in this encounter [facility] 09-10-2024 History of Presen t illness Narrative Images from the original note were not included. HISTORY OF PRESENT ILLNESS: Roslyn Flores is an 54 y.o. @ female. Left shoulder pain and recent MRI of the left shoulder LT shoulder. Here for MRI results [facility] 09/07. She continues to have increasing pain. LT shoulder pain for February 2024 and getting worse. Denies injury Saw Dr Rivas on 08/19 XR ordered (done 08/24/24 at [facility]), PT ordered at [facility] Constant pain in posterior left shoulder, [...] treatment: Dr Carolina 08/19/24, PT ordered at [facility], XR done at [facility] 08/24/24, percocet for LBP, MRI 09/07/24 [facility] Patient did advise me that she is [...] guidance. I will see her back in [place] next week for this. Dr. Burroughs obtained history and examined the patient, I am acting as scribe for Dr. Burroughs/, RN I did advise the patient that I am leaving my current practice to practice in another state but my colleagues are willing to see her if she has any problems or concerns or if she desires a referral to another hearing specialist we would be happy to make referral, she states she would like to continue her care here. Vanita Burroughs D.O. documented in this encounter [facility] 09-01-2024 History of Presen t illness Narrative Images from the original note were not included. HISTORY OF PRESENT ILLNESS: Roslyn Flores is an 54 y.o. @ female. Chief complaint LT shoulder pain New patient: LT shoulder. Dr Rivas referral. XR [facility] 08/19/24 LT shoulder pain for February 2024 and getting worse. Denies injury Saw Dr Rivas on 08/19 XR ordered (done 08/24/24 at [facility]), PT ordered at [facility] Constant pain in posterior left shoulder, trap, [...] treatment: Dr Carolina 08/19/24, PT ordered at [facility], XR done at [facility] 08/24/24, percocet for LBP Patient did [...] x-rays of the left shoulder from the [facility]. There is slight narrowing of the [...] Vanita Burroughs D.O. documented in this encounter [facility] 08-31-2024 Telephone encount er Note [facility] 08-31-2024 Miscellaneous Notes Formattin g of this note might be different from the original. documented in this encounter [facility] 08-19-2024 History of Presen t illness Narrative [...] to Orthopaedic Surgery documented in this encounter [facility] 06-29-2024 History of Presen t illness Narrative Associated Problem(s): Seasonal allergic rhinitis due to pollen Symptoms controlled with medication and continue. Associated Problem(s): Migraine without aura and with status migrainosus, not intractable (CMS/HCC) LI stable and continue topamax. Use imitrex PRN. Associated Problem(s): Lumbar spondylolysis Pain stable and continue home PT exercises. Continue daypro and zanaflex. Use percocet PRN. Discussed risks and benefits of opiate therapy. Warned medication is narcotic and risk of addiction. OARRS reviewed. Associated Problem(s): Benign essential hypertension (CMS/HCC) BP controlled and monitor PRN. Images from the original note were not included. Subjective Patient ID: Roslyn Flores is a 54 y.o. female who presents for Follow-up (3m). Follow up HTN, migraines, pain, and allergies. Checking BP PRN and typically controlled. BP normal today. Taking medication daily and tolerating without side effects. Migraines stable. Migraine 2-3 times a week. Pain starts behind eye or in back head then spreads. Throbbing pain in entire head associated with photophobia, phonophobia and nausea. Using imitrex and mild relief. Pain unchanged. Continues to have pain in low back and across top hip. Pain radiates into left hip and left gluteal region. Pain with walking and standing. Completed PT and overall pain improved. Using daypro and zanaflex mild relief. Percocet helps with pain. Allergies controlled with medication. No congestion or rhinorrhea. No LI or sinus pressure. Ears not plugged or popping. Review of Systems Respiratory: Negative for cough, [...] No edema. Left lower leg: No edema. Neurological: Mental Status: She is alert. Assessment/Plan Problem List Items Addressed This Visit Benign essential hypertension (CMS/HCC) - Primary BP controlled and monitor PRN. Lumbar spondylolysis Pain stable and continue home PT exercises. Continue daypro and zanaflex. Use percocet PRN. Discussed risks and benefits of opiate therapy. Warned medication is narcotic and risk of addiction. OARRS reviewed. Migraine without aura and with status migrainosus, not intractable (CMS/HCC) LI stable and continue topamax. Use imitrex PRN. Seasonal allergic rhinitis due to pollen Symptoms controlled with medication and continue. documented in this encounter [facility] 06-22-2024 Telephone encount er Note [facility] 06-22-2024 Miscellaneous Notes Formattin g of this note might be different from the original. documented in this encounter [facility] 04-22-2022 Evaluation note Encounter Date Diagnosis Assessment [...] take with food to prevent stomach upset. [facility] Other Evaluation note* Diagnosis Arthralgia of multiple [...] spondylosis without myelopathy documented in this encounter [facility]* Diagnosis Arthralgia of multiple joints- [...] unspecified tear extent documented in this encounter [facility]* [...] of left shoulder documented in this encounter [facility]* Diagnosis Arthralgia of multiple [...] in this encounter [facility]* Diagnosis Pain in right hip Migraine without aura, not intractable, with status migrainosus (CMS/HCC) Lumbar spondylolysis Lumbosacral spondylosis without myelopathy documented in this encounter [facility]* Diagnosis Benign essential hypertension (CMS/HCC)- Primary Essential hypertension, benign Lumbar spondylolysis Lumbosacral spondylosis without myelopathy Migraine without aura and with status migrainosus, not intractable (CMS/HCC) Seasonal allergic rhinitis due to pollen documented in this encounter [facility]* Diagnosis Lumbar spondylolysis Lumbosacral spondylosis without myelopathy documented in this encounter [facility] note* Diagnosis Arthralgia of multiple [...] spondylosis without myelopathy documented in this encounter [facility]* Diagnosis Arthralgia of multiple [...] shoulder region Internal derangement of left shoulder Benign essential hypertension (CMS/HCC)- Primary Essential hypertension, benign Bilateral leg edema Edema documented in this encounter [facility]* [...] shoulder region Internal derangement of left shoulder Benign essential hypertension (CMS/HCC)- Primary Essential hypertension, benign Bilateral leg edema Edema Lumbar spondylolysis Lumbosacral spondylosis without myelopathy documented [...] shoulder region Internal derangement of left shoulder Benign essential hypertension (CMS/HCC)- Primary Essential hypertension, benign Bilateral leg edema Edema Allergic rhinitis due to pollen Lumbar spondylolysis Lumbosacral [...] shoulder region Internal derangement of left shoulder Benign essential hypertension (CMS/HCC)- Primary Essential hypertension, benign Bilateral leg edema Edema Lumbar spondylolysis Lumbosacral spondylosis without myelopathy Impingement syndrome of left shoulder- Primary Pre-op exam documented in this encounter [facility] note* Diagnosis Arthralgia of multiple joints- [...] shoulder region Internal derangement of left shoulder Benign essential hypertension (CMS/HCC)- Primary Essential hypertension, benign Bilateral leg edema Edema Impingement syndrome of left shoulder- Primary Pre-op exam Benign essential hypertension (CMS/HCC) Essential hypertension, benign Migraine without aura and with status migrainosus, not intractable (CMS/HCC) documented in this encounter [facility] note* Diagnosis Arthralgia of multiple joints- [...] shoulder region Internal derangement of left shoulder Benign essential hypertension (CMS/HCC)- Primary Essential hypertension, benign Bilateral leg edema Edema Annual physical exam- Primary Routine general medical examination at a health care facility Benign essential hypertension (CMS/HCC) Essential hypertension, benign Abnormal TSH Breast cancer screening by mammogram Bilateral leg edema Edema Rosacea Lumbar spondylolysis Lumbosacral spondylosis without myelopathy documented in this encounter [facility]* Diagnosis Arthralgia of multiple [...] shoulder region Internal derangement of left shoulder Benign essential hypertension (CMS/HCC)- Primary Essential hypertension, benign Bilateral leg edema Edema Annual physical exam- Primary Routine general medical examination at a health care facility Benign essential hypertension (CMS/HCC) Essential hypertension, benign Abnormal TSH Breast cancer screening by mammogram Bilateral leg edema Edema Rosacea Lumbar spondylolysis Lumbosacral spondylosis without myelopathy Lumbar spondylolysis Lumbosacral spondylosis without myelopathy documented in this encounter [facility] HealthcareHistory general Narrative - Reported* Type Description Date Medical History migraine headache Medical History fibromyalgia Medical History thorasic outlet Medical History htn Surgical History knee arthroscopy Surgical History cholecystectomy Surgical History hysterectomy Surgical History breast lump removed Surgical History bladder suspension, unspecified Surgical History spinal injection oct 2021 Surgical History RFA burn Hospitalization History see above [facility] Other Summary Purpose Family History No Family [...] section and content) DATE CREATED AUTHOR 04/30/2018 [facility] DATE CREATED AUTHOR AUTHOR'S ORGANIZ ATION 06/16/2018 Pedro Nando [facility] DATE CREATED AUTHOR AUTHOR'S ORGANIZ ATION 11/27/2021 [facility] DATE CREATED AUTHOR AUTHOR'S ORGANIZ ATION 12/09/2022 [facility] DATE CREATED AUTHOR AUTHOR'S ORGANIZ ATION [facility]/24/20[facility] DATE CREATED AUTHOR AUTHOR'S ORGANIZ ATION 12/19/2024 [facility] DATE CREATED AUTHOR AUTHOR'S ORGANIZ ATION 12/30/2024 [facility] Specialists EPIC REASON FOR VISIT (unrecogniz ed section and content) Reason Onset Date Comments Med Refill 08/17/2024 Reason Comments Shoulder Pain Left shoulder Reason Onset Date Comments Med Refill 08/31/2024 Reason Comments Pain Specialty Diagnoses / Procedures Referred By Devon lopes Referred To Contact Orthopaedic Surgery Diagnoses Chronic left shoulder pain Internal derangement of left shoulder Seymour Rivas MD [address] [place] [address] Phone: tel: fax: Mark Burroughs DO [address] [facility] [address] [place] [address] Phone: tel: fax: Referral ID Status Reason Start Date Expiration Date V isits Requested Visits Authorized [id number] Closed Specialty Services Required 08/19/2024 02/15/2025 1 1 Reason Comments Follow-up Reason Comments Follow-up Reason Onset Date Comments Med Refill 09/17/2024 Reason Onset Date Comments MRI 09/17/2024 Reason Onset Date Comments Med Refill 09/30/2024 Reason Onset Date Comments Med Refill 10/19/2024 Reason Comments Med Refill Reason Comments Follow-up 3m Reason Onset Date Comments Med Refill 07/10/2024 Reason Onset Date Comments Med Refill 07/31/2024 Reason Onset Date Comments Med Refill 11/02/2024 Reason Comments Hypertension Bp running high Reason Onset Date Comments Med Refill 11/18/2024 Reason Onset Date Comments Med Refill 12/02/2024 Reason Onset Date Comments Med Refill 12/15/2024 Reason Comments Pre-op Exam PRE OP EXAM Reason Comments Follow-up 6 m Reason Onset Date Comments Med Refill 12/30/2024 Care Teams (unrecognized sec tion and content) Black Pickler Relationship Specialty Start Date End Date Seymour Rivas MD [address] [place] [phone] PCP - [facility] 11/04/23 Seymour Rivas MD [address] [place] [phone] PCP - General Family Medicine 12/18/23 Black Pickler Relationship Specialty Start Date End Date Seymour Rivas MD [address] [place] [phone] PCP - [facility] 11/04/23 Seymour Rivas MD [address] [place] [phone] PCP - General Family Medicine 12/18/23 Black Pickler Relationship Specialty Start Date End Date Seymour Rivas MD [address] [place] [phone] PCP - [facility] 11/04/23 Seymour Rivas MD [address] [place] [address] PCP - General Family Medicine 12/18/23 Black Pickler Relationship Specialty Start Date End Date Seymour Rivas MD [address] [place] [address] PCP - [facility] 11/04/23 Seymour Rivas MD [address] [place] [address] PCP - General Family Medicine 12/18/23 Black Pickler Relationship Specialty Start Date End Date Seymour Rivas MD [address] [place] [address] PCP - [facility] 11/04/23 Seymour Rivas MD [address] [place] [address] PCP - General Family Medicine 12/18/23 Black Pickler Relationship Specialty Start Date End Date Seymour Rivas MD [address] [place] [address] PCP - [facility] 11/04/23 Seymour Rivas MD [address] [place] [address] PCP - General Family Medicine 12/18/23 Black Pickler Relationship Specialty Start Date End Date Seymour Rivas MD [address] [place] [phone] PCP - [facility] [employer] 11/04/23 Seymour Rivas MD [address] [place] [phone] PCP - General Family Medicine 12/18/23 Black Pickler Relationship Specialty Start Date End Date Seymour Rivas MD [address] [place] [phone] PCP - [facility] 11/04/23 Seymour Rivas MD [address] [place] [phone] PCP - General Family Medicine 12/18/23 Black Pickler Relationship Specialty Start Date End Date Seymour Rivas MD [address] [place] [phone] PCP - [facility] 11/04/23 Seymour Rivas MD [address] [place] [phone] PCP - General Family Medicine 12/18/23 Black Pickler Relationship Specialty Start Date End Date Seymour Rivas MD [address] [place] [address] PCP - [facility] [employer] 11/04/23 Seymour Rivas MD [address] [place] [phone] PCP - General Family Medicine 12/18/23 Black Pickler Relationship Specialty Start Date End Date Seymour Rivas MD [address] [place] [phone] PCP - [facility] [employer] 11/04/23 Seymour Rivas MD [address] [place] [phone] PCP - General Family Medicine 12/18/23 Black Pickler Relationship Specialty Start Date End Date Seymour Rivas MD [address] [place] [address] PCP - [facility] [employer] 11/04/23 Seymour Rivas MD [address] [place] [phone] PCP - General Family Medicine 12/18/23 Black Pickler Relationship Specialty Start Date End Date Seymour Rivas MD [address] [place] [phone] PCP - [facility] [employer] 11/04/23 Seymour Rivas MD [address] [place] [phone] PCP - General Family Medicine 12/18/23 Black Pickler Relationship Specialty Start Date End Date Seymour Rivas MD [address] [place] [phone] PCP - [facility] [employer] 11/04/23 Seymour Rivas MD [address] [place] [phone] PCP - General Family Medicine 12/18/23 Black Pickler Relationship Specialty Start Date End Date Seymour Rivas MD [address] [place] [phone] PCP - [facility] [employer] 11/04/23 Seymour Rivas MD [address] [place] [phone] PCP - General Family Medicine 12/18/23 Black Pickler Relationship Specialty Start Date End Date Seymour Rivas MD [address] [place] [phone] PCP - [facility] 11/04/23 Seymour Rivas MD [address] [place] [phone] PCP - General Family Medicine 12/18/23 Black Pickler Relationship Specialty Start Date End Date Seymour Rivas MD [address] [place] [phone] PCP - [facility] [employer] 11/04/23 Seymour Rivas MD [address] [place] [phone] PCP - General Family Medicine 12/18/23 Black Pickler Relationship Specialty Start Date End Date Seymour Rivas MD [address] [place] [phone] PCP - [facility] [employer] 11/04/23 Seymour Rivas MD [address] [place] [address] PCP - General Family Medicine 12/18/23 Black Pickler Relationship Specialty Start Date End Date Seymour Rivas MD [address] [place] [address] PCP - [facility] 11/04/23 Seymour Rivas MD [address] [place] [address] PCP - General Family Medicine 12/18/23 Black Pickler Relationship Specialty Start Date End Date Seymour Rivas MD [address] [place] [address] PCP - [facility] [employer] 11/04/23 Seymour Rivas MD [address] [place] [phone] PCP - General Family Medicine 12/18/23 Black Pickler Relationship Specialty Start Date End Date Seymour Rivas MD [address] [place] [address] PCP - [facility] [employer] 11/04/23 Seymour Rivas MD [address] [place] [phone] PCP - General Family Medicine 12/18/23 Black Pickler Relationship Specialty Start Date End Date Seymour Rivas MD [address] [place] [address] PCP - [facility] [employer] 11/04/23 Seymour Rivas MD [address] [place] [address] [facility] [facility]23 Black Pickler Relationship Specialty Start Date End Date Seymour Rivas MD [address] [place] [id number] [facility] 11/04/23 Seymour Rivas MD [address] [place] [id number] [facility] 12/18/23 Black Pickler Relationship Specialty Start Date End Date Seymour Rivas MD [address] [place] [phone] [facility] 11/04/23 Seymour Rivas MD [address] [place] [id number] [facility] 12/18/23 FOR RECORDS PERTAINING TO PATIENTS WHO [...] BE BASED ON THE PRIMARY CLINICAL RECORDS. [employer] [facility]. provides no warranty or guarantee of the accuracy or completeness of information in this document.
[2025-01-04 13:10] LABS: Basophils Percent Auto 0.5 % (0.2-2.0); Eosinophils Absolute Auto 0.1 10^3/uL (0.0-0.7); Eosinophils Percent Auto 1.4 % (0.9-7.0); Hematocrit 42.3 % (36.0-48.0); Hemoglobin 13.9 g/dL (12.0-16.0); Immature Granulocytes Abs Auto 0.01 10^3/uL (0.00-0.03); Immature Granulocytes Pct Auto 0.2 % (0.0-0.5); Lymphocytes Absolute Auto 2.4 10^3/uL (1.2-3.8); Lymphocytes Percent Auto 42.4 % (20.5-60.0); Mean Corpuscular HGB Conc 32.9 g/dL (29.9-35.2); Mean Corpuscular Hemoglobin 31.2 pg (26.7-34.0); Mean Corpuscular Volume 94.8 fL (81.0-99.0); Mean Platelet Volume 9.8 fL (9.5-13.5); Monocytes Absolute Auto 0.5 10^3/uL (0.3-0.8); Monocytes Percent Auto 8.1 % (1.7-12.0); Neutrophils Absolute Auto 2.7 10^3/uL (1.4-6.5); Neutrophils Percent Auto 47.4 % (43.0-75.0); Platelet Count 242 10^3/uL (150-450); Red Blood Count 4.46 10^6/uL (4.20-5.40); Red Cell Distribution Width 12.5 % (11.0-15.0); White Blood Count 5.7 10^3/uL (4.0-11.0)
[2025-01-04 13:24] LABS: Estimated Average Glucose 97 mg/dL
[2025-01-04 13:35] LABS: Alanine Aminotransferase 11 U/L (14-59); Albumin Level 3.5 g/dL (3.4-5.0); Alkaline Phosphatase 66 U/L (46-116); Anion Gap 9.9; Aspartate Amino Transferase 17 U/L (15-37); BUN Creatinine Ratio 17.9; Bilirubin Direct 0.1 mg/dL (0.0-0.2); Bilirubin Total 0.2 mg/dL (0.2-1.0); Carbon Dioxide 25.7 mmol/L (21.0-32.0); Chloride 107 mmol/L (98-107); Chol HDL Ratio 2.3; Cholesterol 211 mg/dL (<=200); Estimated GFR (African America >60 (>=60 mL/min/1.73m^2); Estimated GFR (Non-African Ame >60 (>=60 mL/min/1.73m^2); Globulin 3.4 g/dL; Glucose 91 mg/dL (74-106); HDL Cholesterol 91 mg/dL (40-60); Potassium 4.6 mmol/L (3.5-5.1); Sodium 138 mmol/L (136-145); Thyroid Stimulating Hormone 1.387 uIU/mL (0.358-3.740); Total Protein 6.9 g/dL (6.4-8.2); Triglycerides 237 mg/dL (<=150); VLDL CHOLESTEROL 47.4 mg/dL
[2025-01-04 13:42] LABS: Free T4 0.76 ng/dL (0.76-1.46)
== END 2025-01-04 12:31 | disposition home or self-care (01) ==
PROVIDERS: PCP Family Medicine; Visit Provider Family Medicine
DX: Z00.00 Encounter for general adult medical examination without abnormal findings (principal); R79.89 Other specified abnormal findings of blood chemistry
CPT/HCPCS: 36415; 80048; 80061; 80076; 83036; 84439; 84443; 85025